=== PATIENT | male | born 1935 | race Caucasian/White ===

== ENCOUNTER 2016-07-26 | Outpatient (CLI) | payer MEDICARE, OTHER | END 2016-07-26 11:51 | disposition critical access hospital (66) | DX: J18.9 Pneumonia, unspecified organism (principal) | CPT/HCPCS: A0425; A0427 ==

== ENCOUNTER 2016-07-26 12:09 | Inpatient (IN) | payer MEDICARE, OTHER ==
[2016-07-26] MEDS ORDERED: cefTRIAXone 1 GM in SODIUM CHLORIDE 0.9% MINIBAG 100 ML IV STA (12:46)
[2016-07-26] MEDS ORDERED: AZITHROMYCIN INJ 500 MG in SODIUM CHLORIDE 0.9% 250 ML IV STA (12:46)
[2016-07-26] MEDS ORDERED: cefTRIAXone 1 GM VIAL ONE (13:21)
[2016-07-26] MEDS ORDERED: IPRATROPIUM/ALBUTEROL 3 ML NEB INH STA (13:46)
[2016-07-26] MEDS ORDERED: IPRATROPIUM/ALBUTEROL 3 ML NEB INH ONE (13:51)
[2016-07-26] MEDS ORDERED: SODIUM CHLORIDE 0.9% 1,000 ML IV SCH (15:57)
[2016-07-26] MEDS ORDERED: ONDANSETRON ODT 4 MG TABLET TL PRN (15:57)
[2016-07-26] MEDS ORDERED: ONDANSETRON 4 MG/2 ML VIAL IVP PRN (15:57)
[2016-07-26] MEDS ORDERED: SODIUM CHLORIDE FLUSH 0.9% 10 ML SYRINGE IVP PRN (15:57)
[2016-07-26] MEDS ORDERED: HYDROcod/ACETAM 5/325 MG TABLET PO PRN (15:57)
[2016-07-26] MEDS: PANTOPRAZOLE 40 MG TABLET PO SCH (16:47)
[2016-07-26] MEDS: IPRATROPIUM/ALBUTEROL 3 ML NEB INH SCH (20:05)
[2016-07-26] MEDS ORDERED: POTASSIUM CHLORIDE 20 MEQ TABLET PO SCH (20:06)
[2016-07-26] MEDS: ATORVASTATIN 10 MG TABLET PO SCH (20:43)
[2016-07-26] MEDS: DIGOXIN 125 MCG TABLET PO SCH (20:43)
[2016-07-26] MEDS: SODIUM CHLORIDE FLUSH 0.9% 10 ML SYRINGE IVP SCH (20:44)
[2016-07-26] MEDS ORDERED: TEMAZEPAM 15 MG CAPSULE PO PRN (21:19)
[2016-07-26] MEDS: guaiFENesin/CODEINE 5 ML UDC PO PRN (21:36)
[2016-07-26] MEDS ORDERED: OSELTAMIVIR 75 MG CAPSULE PO SCH (22:00)
[2016-07-26] MEDS ORDERED: OSELTAMIVIR 30 MG CAPSULE PO SCH ×2 (22:00)
[2016-07-26] MEDS: OSELTAMIVIR 75 MG CAPSULE PO SCH (22:09)
[2016-07-27] MEDS: ACETAMINOPHEN 325 MG TABLET PO PRN ×3 (00:34→16:23)
[2016-07-27] MEDS: BENZOCAINE/MENTHOL LOZENGE MM PRN ×4 (00:35→23:55)
[2016-07-27] MEDS: guaiFENesin/CODEINE 5 ML UDC PO PRN ×2 (03:08→23:55)
[2016-07-27] MEDS: ALBUTEROL NEB 2.5 MG/3 ML INH PRN (03:22)
[2016-07-27] MEDS: SODIUM CHLORIDE FLUSH 0.9% 10 ML SYRINGE IVP SCH ×3 (06:35→20:51)
[2016-07-27] MEDS ORDERED: ENOXAPARIN 40 MG/0.4 ML SYRINGE SUBQ SCH (09:00)
[2016-07-27] MEDS: IPRATROPIUM/ALBUTEROL 3 ML NEB INH SCH ×3 (09:10→16:00)
[2016-07-27] MEDS: AZITHROMYCIN INJ 500 MG in SODIUM CHLORIDE 0.9% 250 ML IV SCH (09:13)
[2016-07-27] MEDS: METOPROLOL SUCCINATE 25 MG TABLET PO SCH (09:14)
[2016-07-27] MEDS: OSELTAMIVIR 75 MG CAPSULE PO SCH ×2 (09:14→20:51)
[2016-07-27] MEDS: DIGOXIN 125 MCG TABLET PO SCH (09:14)
[2016-07-27] MEDS: POLYETHYLENE GLYCOL 3350 17 GM PACKET PO SCH (09:15)
[2016-07-27] MEDS ORDERED: cefTRIAXone 2 GM in SODIUM CHLORIDE 0.9% MINIBAG 100 ML IV SCH (10:00)
[2016-07-27] MEDS ORDERED: DIGOXIN 500 MCG/2 ML AMP IVP ONE (17:30)
[2016-07-27] MEDS: PANTOPRAZOLE 40 MG TABLET PO SCH (17:32)
[2016-07-27] MEDS ORDERED: METOPROLOL 5 MG/5 ML VIAL IVP ONE (19:00)
[2016-07-27] MEDS: ATORVASTATIN 10 MG TABLET PO SCH (20:51)
[2016-07-27] MEDS: APIXABAN 2.5 MG TABLET PO SCH (20:51)
[2016-07-28] MEDS ORDERED: METOPROLOL 5 MG/5 ML VIAL IVP STA ×2 (01:12→04:02)
[2016-07-28] MEDS ORDERED: METOPROLOL 5 MG/5 ML VIAL IVP ONE (01:13)
[2016-07-28] MEDS ORDERED: METOPROLOL 5 MG/5 ML VIAL IVP SCH (01:36)
[2016-07-28] MEDS ORDERED: ALPRAZolam 0.25 MG TABLET PO STA (04:02)
[2016-07-28] MEDS: SODIUM CHLORIDE FLUSH 0.9% 10 ML SYRINGE IVP SCH ×2 (04:13→13:07)
[2016-07-28] MEDS: ALBUTEROL NEB 2.5 MG/3 ML INH PRN ×3 (07:30→14:50)
[2016-07-28] MEDS: METOPROLOL SUCCINATE 25 MG TABLET PO SCH (08:37)
[2016-07-28] MEDS: AZITHROMYCIN INJ 500 MG in SODIUM CHLORIDE 0.9% 250 ML IV SCH (08:37)
[2016-07-28] MEDS: APIXABAN 2.5 MG TABLET PO SCH (08:37)
[2016-07-28] MEDS: OSELTAMIVIR 75 MG CAPSULE PO SCH (08:37)
[2016-07-28] MEDS: DIGOXIN 125 MCG TABLET PO SCH (08:37)
[2016-07-28] MEDS: POLYETHYLENE GLYCOL 3350 17 GM PACKET PO SCH (08:38)
[2016-07-28] MEDS ORDERED: AZITHROMYCIN 250 MG TABLET PO SCH (12:49)
[2016-07-28] MEDS ORDERED: AMOXICILLIN 250 MG CAPSULE PO SCH (13:00)
== END 2016-07-28 15:15 | disposition home or self-care (01) | DRG 195 ==
DX: J10.08 Influenza due to other identified influenza virus with other specified pneumonia (principal); J18.9 Pneumonia, unspecified organism; I48.91 Unspecified atrial fibrillation; J12.9 Viral pneumonia, unspecified; I25.10 Atherosclerotic heart disease of native coronary artery without angina pectoris; E78.5 Hyperlipidemia, unspecified; E29.1 Testicular hypofunction; G47.30 Sleep apnea, unspecified; Z88.2 Allergy status to sulfonamides; M19.90 Unspecified osteoarthritis, unspecified site; I34.0 Nonrheumatic mitral (valve) insufficiency; N40.0 Benign prostatic hyperplasia without lower urinary tract symptoms; K21.9 Gastro-esophageal reflux disease without esophagitis; H91.8X9 Other specified hearing loss, unspecified ear; E66.3 Overweight; R09.02 Hypoxemia; I48.2 Chronic atrial fibrillation; J44.1 Chronic obstructive pulmonary disease with (acute) exacerbation; J45.909 Unspecified asthma, uncomplicated; G47.33 Obstructive sleep apnea (adult) (pediatric); I10 Essential (primary) hypertension; Z79.01 Long term (current) use of anticoagulants; Z87.891 Personal history of nicotine dependence; Z95.5 Presence of coronary angioplasty implant and graft; Z96.643 Presence of artificial hip joint, bilateral; Z96.1 Presence of intraocular lens; Z98.1 Arthrodesis status; Z68.32 Body mass index [BMI] 32.0-32.9, adult; Z66 Do not resuscitate

== ENCOUNTER 2016-09-23 07:43 | Outpatient (CLI) | payer MEDICARE, OTHER | END 2016-09-23 07:44 | disposition home or self-care (01) | DX: R35.0 Frequency of micturition (principal) ==

== ENCOUNTER 2016-09-26 11:44 | Outpatient (CLI) | payer MEDICARE, OTHER | END 2016-09-26 11:45 | disposition short-term general hospital (02) | DX: I49.9 Cardiac arrhythmia, unspecified (principal) | CPT/HCPCS: A0425; A0427 ==

== ENCOUNTER 2016-10-10 11:04 | Outpatient (CLI) | payer MEDICARE, OTHER | END 2016-10-10 11:05 | disposition home or self-care (01) | DX: I50.9 Heart failure, unspecified (principal) ==

== ENCOUNTER 2016-12-26 09:30 | Outpatient (CLI) | payer MEDICARE, OTHER | END 2016-12-26 09:31 | disposition home or self-care (01) | LOC: LAB.WCP 09:30 | PROVIDERS: ATTEND Family Medicine | DX: B02.29 Other postherpetic nervous system involvement (principal); B02.9 Zoster without complications | CPT/HCPCS: 36415; 86787 ==

== ENCOUNTER 2016-12-30 10:42 | Outpatient (CLI) | payer MEDICARE, OTHER ==
--- NOTE | 2016-12-30 13:43 | MRI Report ---
EXAM: MRI LUMBAR SPINE WITHOUT CONTRAST EXAM DATE: 12/30/2016 11:51 AM. CLINICAL HISTORY: Low back pain for one month with left lower leg numbness. Left hip pain. History of prior fusion surgery 10 years ago. COMPARISON: None available. TECHNIQUE: Multiplanar, multisequence T1-weighted and fluid-sensitive sequences of the lumbar spine f rom T12 to S1 without contrast. Other: None. FINDINGS: There is straightening of the normal lumbar lordosis. There is a grade 1 anterolisthesis of L4 on L5. There are surgical changes of anterior fusion from L3 through L5. There are surgical changes of post erior fusion from L3 through L5. There are surgical changes of bilateral hemilaminotomies at L4-L5. T his will be described in greater detail below. There is hypertrophy of the fat in the posterior epidural space that is greatest at the L1-L2 and L2- L3 levels. This contributes to the degree of central canal stenosis and is consistent with focal area s of epidural lipomatosis. This will be described in greater detail below. There are Schmorl's nodes within the T11-T12 through L4-L5 endplates. There is a mild decrease in the height of the disk at T11-T12, T12-L1, L1-L2, and mild to moderate at L2-L3. There is desiccation of the disk spaces throughout the imaged portions of the thoracic and lumbar spine. The conus terminates at the superior endplate level of L1. There is a mixture of Modic type I and type II endplate degenerative change within the T11-T12 throug h L2-L3 endplates. There is a minimal to mild degree of atrophy of the paraspinal musculature and psoas musculature. The abdominal aorta is of normal caliber. There is no evidence of hydronephrosis. T12-L1: There is a small disk osteophyte complex abutting the sac producing a minimal central canal s tenosis. The facets are normal. There is no significant foraminal stenosis. L1-L2: There is a moderate broad-based disk osteophyte complex abutting the sac. There is mild hypert rophy of the fat in the posterior epidural space. There is a moderate central canal stenosis. There i s mild to moderate bilateral facet arthropathy with minimal bilateral facet effusions. There is mild to moderate bilateral foraminal stenoses. L2-L3: There is a small disk osteophyte complex abutting the sac. This in combination with epidural l ipomatosis produces mild to moderate central canal stenosis. There is moderate right and left neural foraminal narrowing. There is mild left facet arthropathy. L3-L4: There is no significant disk bulge or central canal stenosis. The facets are normal. There is no significant foraminal stenosis. L4-L5: There is a grade 1 anterolisthesis of L4 on L5. There is a small pseudobulge abutting the sac with annular tear but without significant central canal stenosis. There are surgical changes of poste rior decompression from bilateral hemilaminotomies. There is mild bilateral facet arthropathy. There is moderate right and mild to moderate left neural foraminal narrowing. L5-S1: There is mild left facet arthropathy. There is no significant foraminal stenosis. There is no significant central canal stenosis. IMPRESSION: 1. There are surgical changes of anterior and posterior fusion from L3 through L5. There are surgical changes of the bilateral hemilaminotomies at L4-L5. 2. There is a grade 1 anterolisthesis of L4 on L5. There is a small pseudobulge with annular tear but without significant central canal stenosis at L4-L5. 3. There is a small disk osteophyte complex at L2-L3 which in combination with epidural lipomatosis p roduces a mild to moderate central canal stenosis. 4. There is a moderate broad-based disk osteophyte complex at L1-L2 which in correlation with epidura l lipomatosis produces a moderate central canal stenosis. Comment: The following findings are so common in adults without low back pain that while we report th eir presence, they must be interpreted with caution and in the context of the clinical situation. (Re sharmaine Marquez et al, Spine 2001) Prevalence of findings in patients without low back pain: Disk degeneration (any evidence): 92% Disk desiccation/T2 signal loss: 83% Disk height loss: 56% Disk bulge: 64% Disk protrusion: 32% Annular tear/high intensity zone: 38% [facility] Referring Provider Line: [phone] SITE ID: [id number]
== END 2016-12-30 10:43 | disposition home or self-care (01) ==
LOC: DI 10:42
PROVIDERS: ATTEND Family Medicine
DX: M51.36 Other intervertebral disc degeneration, lumbar region (principal); M47.896 Other spondylosis, lumbar region; M43.16 Spondylolisthesis, lumbar region; M51.34 Other intervertebral disc degeneration, thoracic region; M47.897 Other spondylosis, lumbosacral region; Z98.1 Arthrodesis status
CPT/HCPCS: 72148

== ENCOUNTER 2017-02-14 11:04 | Outpatient (CLI) | payer MEDICARE, OTHER ==
[2017-02-14 13:15] LABS: BASOPHILS # (AUTO) 0.1 10^3/uL (0.0-0.1); BASOPHILS % (AUTO) 0.6 %; EOSINOPHILS # (AUTO) 0.4 10^3/uL (0.0-0.7); EOSINOPHILS % (AUTO) 4.9 %; HCT - HEMATOCRIT 40.9 % (42.0-52.0); HGB - HEMOGLOBIN 13.5 g/dL (14.0-18.0); LYMPHOCYTES % (AUTO) 12.3 %; MEAN CORPUSCULAR HEMOGLOBIN 29.2 pg (27.0-31.0); MEAN CORPUSCULAR HGB CONC 32.9 g/dL (32.0-36.0); MEAN CORPUSCULAR VOLUME 88.6 fL (80.0-94.0); MEAN PLATELET VOLUME 8.9 fL (7.4-11.4); MONOCYTES # (AUTO) 0.9 10^3/uL (0.0-1.0); MONOCYTES % (AUTO) 11.1 %; NEUTROPHILS # (AUTO) 5.7 10^3/uL (1.5-6.6); NEUTROPHILS % (AUTO) 71.1 %; RED BLOOD COUNT 4.62 10^6/uL (4.70-6.10); RED CELL DISTRIBUTION WIDTH 15.8 % (12.0-15.0)
[2017-02-14 13:35] LABS: CALCIUM 9.2 mg/dL (8.5-10.3); CREATININE 1.3 mg/dL (0.6-1.2); MAGNESIUM 2.2 mg/dL (1.7-2.8); POTASSIUM 4.1 mmol/L (3.5-5.0)
== END 2017-02-14 11:05 | disposition home or self-care (01) ==
LOC: LAB.WCP 11:04
PROVIDERS: ATTEND Nurse Practitioner Family
DX: I48.91 Unspecified atrial fibrillation (principal); Z51.81 Encounter for therapeutic drug level monitoring; Z79.899 Other long term (current) drug therapy
CPT/HCPCS: 36415; 80048; 83735; 85025

== ENCOUNTER 2017-04-14 14:57 | Outpatient (CLI) | payer MEDICARE, OTHER ==
[2017-04-14 13:39] LABS: CALCIUM 9.6 mg/dL (8.5-10.3); CREATININE 1.2 mg/dL (0.6-1.2); POTASSIUM 3.9 mmol/L (3.5-5.0)
== END 2017-04-14 14:58 | disposition home or self-care (01) ==
LOC: LAB.WCP 14:57
PROVIDERS: ATTEND Nurse Practitioner Family
DX: Z51.81 Encounter for therapeutic drug level monitoring (principal); Z79.899 Other long term (current) drug therapy
CPT/HCPCS: 36415; 80048

== ENCOUNTER 2017-06-29 13:01 | Outpatient (CLI) | payer MEDICARE, OTHER | END 2017-06-29 13:02 | disposition home or self-care (01) | LOC: SC 13:01 | PROVIDERS: ATTEND Specialist | DX: G47.33 Obstructive sleep apnea (adult) (pediatric) (principal) | CPT/HCPCS: 99214; G0463; 99212 ==

== ENCOUNTER 2017-07-21 08:00 | Outpatient (CLI) | payer MEDICARE, OTHER ==
[2017-07-21 19:41] LABS: CALCIUM 10.2 mg/dL (8.5-10.3); CREATININE 1.7 mg/dL (0.6-1.2)
== END 2017-07-21 08:01 | disposition home or self-care (01) ==
LOC: LAB.WCP 08:00
PROVIDERS: ATTEND Nurse Practitioner Family
DX: I48.91 Unspecified atrial fibrillation (principal); I25.10 Atherosclerotic heart disease of native coronary artery without angina pectoris; Z51.81 Encounter for therapeutic drug level monitoring; Z79.899 Other long term (current) drug therapy
CPT/HCPCS: 36415; 80048

== ENCOUNTER 2017-07-31 12:09 | Outpatient (CLI) | payer MEDICARE, OTHER ==
[2017-07-31 19:19] LABS: CALCIUM 9.5 mg/dL (8.5-10.3); CREATININE 1.4 mg/dL (0.6-1.2)
== END 2017-07-31 12:10 | disposition home or self-care (01) ==
LOC: LAB.WCP 12:09
PROVIDERS: ATTEND Internal Medicine Cardiovascular Disease
DX: I48.91 Unspecified atrial fibrillation (principal); Z51.81 Encounter for therapeutic drug level monitoring; Z79.899 Other long term (current) drug therapy
CPT/HCPCS: 36415; 80048

== ENCOUNTER 2017-09-29 08:00 | Outpatient (CLI) | payer MEDICARE, OTHER ==
[2017-09-29 14:19] LABS: CALCIUM 9.3 mg/dL (8.5-10.3); CREATININE 1.7 mg/dL (0.6-1.2)
== END 2017-09-29 08:01 | disposition home or self-care (01) ==
LOC: LAB.WCP 08:00
PROVIDERS: ATTEND Internal Medicine Cardiovascular Disease
DX: Z51.81 Encounter for therapeutic drug level monitoring (principal); Z79.899 Other long term (current) drug therapy
CPT/HCPCS: 36415; 80048

== ENCOUNTER 2018-02-05 08:00 | Outpatient (CLI) | payer MEDICARE, OTHER ==
[2018-02-05 18:58] LABS: CALCIUM 9.1 mg/dL (8.5-10.3); CREATININE 1.9 mg/dL (0.6-1.2)
== END 2018-02-05 08:01 | disposition home or self-care (01) ==
LOC: LAB.WCP 08:00
PROVIDERS: ATTEND Internal Medicine Cardiovascular Disease
DX: I48.0 Paroxysmal atrial fibrillation (principal); I48.3 Typical atrial flutter
CPT/HCPCS: 36415; 80048

== ENCOUNTER 2018-02-23 13:00 | Outpatient (CLI) | payer MEDICARE, OTHER ==
[2018-02-23 18:51] LABS: CALCIUM 9.5 mg/dL (8.5-10.3); CREATININE 1.9 mg/dL (0.6-1.2)
== END 2018-02-23 13:01 | disposition home or self-care (01) ==
LOC: LAB.WCP 13:00
PROVIDERS: ATTEND Internal Medicine Cardiovascular Disease
DX: I48.0 Paroxysmal atrial fibrillation (principal); I48.3 Typical atrial flutter
CPT/HCPCS: 36415; 80048

== ENCOUNTER 2018-06-13 14:41 | Outpatient (CLI) | payer MEDICARE, OTHER | END 2018-06-13 14:42 | disposition home or self-care (01) | LOC: SC 14:41 | PROVIDERS: ATTEND Nurse Practitioner Family | DX: G47.33 Obstructive sleep apnea (adult) (pediatric) (principal) | CPT/HCPCS: 99214; G0463; 99212 ==

== ENCOUNTER 2018-09-19 08:00 | Outpatient (CLI) | payer MEDICARE, OTHER ==
[2018-09-19 12:24] LABS: HGB - HEMOGLOBIN 12.5 g/dL (14.0-18.0); MEAN CORPUSCULAR HEMOGLOBIN 29.2 pg (27.0-31.0); MEAN CORPUSCULAR HGB CONC 32.2 g/dL (32.0-36.0); MEAN CORPUSCULAR VOLUME 90.6 fL (80.0-94.0); MEAN PLATELET VOLUME 8.9 fL (7.4-11.4); RED BLOOD COUNT 4.27 10^6/uL (4.70-6.10); WHITE BLOOD COUNT 8.8 x10^3/uL (4.8-10.8)
[2018-09-19 13:40] LABS: CREATININE 1.3 mg/dL (0.6-1.2)
== END 2018-09-19 23:59 ==
LOC: LAB.WCP 08:00
PROVIDERS: ATTEND Family Medicine
DX: R06.09 Other forms of dyspnea (principal)
CPT/HCPCS: 36415; 80048; 83880; 85027

== ENCOUNTER 2018-09-26 14:19 | Outpatient (CLI) | payer MEDICARE, OTHER | END 2018-09-26 14:20 | disposition EMS.NT | LOC: EMS 14:19 | PROVIDERS: ATTEND Surgery | DX: M79.89 Other specified soft tissue disorders (principal); M79.672 Pain in left foot; M79.671 Pain in right foot; R26.2 Difficulty in walking, not elsewhere classified; R06.02 Shortness of breath ==

== ENCOUNTER 2018-09-26 15:27 | Inpatient (IN) | payer MEDICARE, OTHER ==
--- NOTE | 2018-09-26 16:22 | ED Physician Documentation ---
History of Present Illness - Stated complaint Stated Complaint: BILAT FEET & ANKLE SWELLING AND PX - Chief complaint Chief Complaint: Ext Problem - History obtained from History obtained from: Patient, Family - History of Present Illness Timing: How many days ago (worse for the past 3 days) Pain level max: 8 Pain level now: 8 - Additonal information Additional information: 83 year old male with a history of CHF, presents with increased trouble breathing, swelling in the legs and feet and increased foot pain for the past 3 days. States hurts to walk. Saw PCP and increased lasix and placed in compression socks. States he is worse. Review of Systems Ten Systems: 10 systems reviewed and negative Constitutional: denies: Fever, Chills Ears: denies: Ear pain Nose: denies: Rhinorrhea / runny nose, Congestion Cardiac: denies: Chest pain / pressure Respiratory: reports: Dyspnea, Cough. denies: Hemoptysis, Wheezing GI: denies: Abdominal Pain, Nausea, Vomiting, Diarrhea : denies: Dysuria Skin: denies: Rash Musculoskeletal: denies: Neck pain, Back pain Neurologic: denies: Headache PD PAST MEDICAL HISTORY - Past Medical History Cardiovascular: Hypertension, Atrial fibrillation Respiratory: Asthma Endocrine/Autoimmune: None GI: GERD, Hemorrhoids, Diverticulitis : Kidney stones HEENT: None Psych: None Musculoskeletal: Osteoarthritis, Chronic back pain Derm: None - Past Surgical History Past Surgical History: Yes General: Colonoscopy, EGD Ortho: Hip replacement, Spine surgery Cardiovascular: Coronary stent, Other HEENT: Cataracts, Tonsil/Adenoidectomy - Present Medications Home Medications: Ambulatory Orders Medication Instructions Recorded Confirmed Albuterol Sulfate [Proair 2 puffs INH Q4H PRN 04/23/16 07/26/16 Respiclick] Apixaban [Eliquis] 2.5 mg PO BID 04/23/16 07/26/16 Esomeprazole Magnesium [Nexium] 20 mg PO QDDINNER 04/23/16 09/26/18 Simvastatin 20 mg PO QPM 04/23/16 09/26/18 Fluticasone 110 Mcg [Flovent] 1 puffs INH BID 07/26/16 09/26/18 Fluticasone [Flonase] 1 sprays KRISHNA BID PRN 07/26/16 09/26/18 Metoprolol Succinate 50 mg PO DAILY 07/26/16 09/26/18 Albuterol 2.5 mg INH Q4HR PRN #120 neb 07/28/16 guaiFENesin/CODEINE [Robitussin AC] 5 ml PO Q6HR PRN #120 udc 07/28/16 09/26/18 Dofetilide [Tikosyn] 1 tab ORAL BID 09/26/18 09/26/18 Furosemide [Lasix] 80 mg pe ORAL DAILY 09/26/18 09/26/18 Lisinopril 20 mg ORAL DAILY 09/26/18 09/26/18 - Allergies Allergies/Adverse Reactions: Allergies Allergy/AdvReac Type Severity Reaction Status Date / Time diltiazem HCl * Allergy Unknown Verified 09/26/18 15:47 [From Cardizem] Sulfa (Sulfonamide Allergy Anaphylaxis Verified 09/26/18 15:47 Antibiotics) - Social History Does the pt smoke?: No Smoking Status: Never smoker Does the pt drink ETOH?: No - Immunizations Immunizations are current?: Yes PD ED PE NORMAL - Vitals Vital signs reviewed: Yes - General General: Alert and oriented X 3, No acute distress, Well developed/nourished - HEENT HEENT: PERRL, Moist mucous membranes - Neck Neck: Supple, no meningeal sign, Thyroid normal - Cardiac Cardiac: RRR - Respiratory Respiratory: No respiratory distress, Other (Rhonchi bilaterally) - Abdomen Abdomen: Soft, Non tender, Non distended - Derm Derm: Warm and dry - Extremities Extremities: Other (2+ pitting edema to the knee bilaterally. Right greater than left. There is redness and swelling to the right foot as well.) - Neuro Neuro: Alert and oriented X 3 - Psych Psych: Normal mood, Normal affect Results - Vitals Vitals: Vital Signs - 24 hr 09/26/18 15:42 Temperature 37 C Heart Rate 74 Respiratory 16 Rate Blood Pressure 118/62 O2 Saturation 99 Oxygen O2 Source Room air - EKG (time done) 1639 Rate: Rate (enter#) (81) Rhythm: NSR [place]: Normal Intervals: Normal MT QRS: Normal Ischemia: Non specific changes - Labs Labs: Laboratory Tests 09/26/18 09/26/18 09/26/18 16:30 16:30 16:30 WBC 11.5 H RBC 4.13 L Hgb 12.0 L Hct 37.0 L MCV 89.4 MCH 29.0 MCHC 32.4 RDW 15.1 H Plt Count 276 MPV 8.3 Neut # (Auto) 9.3 H Lymph # (Auto) 0.8 L [place] # (Auto) 1.2 H Eos # (Auto) 0.0 Baso # (Auto) 0.1 Absolute Nucleated RBC 0.01 Nucleated RBC % 0.1 ESR Sodium 139 Potassium 3.1 L Chloride 97 L Carbon Dioxide 31 Anion Gap 11.0 BUN 21 H Creatinine 1.3 H Estimated GFR (MDRD) 53 L Glucose 123 H Calcium 8.9 Total Bilirubin 1.2 H AST 18 ALT 17 Alkaline Phosphatase 67 Troponin I < 0.04 C-Reactive Protein B-Natriuretic Peptide Total Protein 7.3 Albumin 3.8 Globulin 3.5 Albumin/Globulin Ratio 1.1 Lipase 25 Urine Color Urine Clarity Urine pH Ur Specific [place] Urine Protein Urine Glucose (UA) Urine Ketones Urine Occult Blood Urine Nitrite Urine Bilirubin Urine Urobilinogen Ur Leukocyte Esterase Urine RBC Urine WBC Ur Squamous Epith Cells Urine Bacteria Ur Microscopic Review Urine Culture Comments 09/26/18 09/26/18 09/26/18 16:30 16:30 16:30 WBC RBC Hgb Hct MCV MCH MCHC RDW Plt Count MPV Neut # (Auto) Lymph # (Auto) [place] # (Auto) Eos # (Auto) Baso # (Auto) Absolute Nucleated RBC Nucleated RBC % ESR 58 H Sodium Potassium Chloride Carbon Dioxide Anion Gap BUN Creatinine Estimated GFR (MDRD) Glucose Calcium Total Bilirubin AST ALT Alkaline Phosphatase Troponin I C-Reactive Protein 20.9 H B-Natriuretic Peptide 312 H Total Protein Albumin Globulin Albumin/Globulin Ratio Lipase Urine Color Urine Clarity Urine pH Ur Specific [place] Urine Protein Urine Glucose (UA) Urine Ketones Urine Occult Blood Urine Nitrite Urine Bilirubin Urine Urobilinogen Ur Leukocyte Esterase Urine RBC Urine WBC Ur Squamous Epith Cells Urine Bacteria Ur Microscopic Review Urine Culture Comments 09/26/18 17:18 WBC RBC Hgb Hct MCV MCH MCHC RDW Plt Count MPV Neut # (Auto) Lymph # (Auto) [place] # (Auto) Eos # (Auto) Baso # (Auto) Absolute Nucleated RBC Nucleated RBC % ESR Sodium Potassium Chloride Carbon Dioxide Anion Gap BUN Creatinine Estimated GFR (MDRD) Glucose Calcium Total Bilirubin AST ALT Alkaline Phosphatase Troponin I C-Reactive Protein B-Natriuretic Peptide Total Protein Albumin Globulin Albumin/Globulin Ratio Lipase Urine Color YELLOW Urine Clarity CLEAR Urine pH 5.5 Ur Specific [place] 1.020 Urine Protein TRACE Urine Glucose (UA) NEGATIVE Urine Ketones NEGATIVE Urine Occult Blood MODERATE H Urine Nitrite NEGATIVE Urine Bilirubin NEGATIVE Urine Urobilinogen 0.2 (NORMAL) Ur Leukocyte Esterase NEGATIVE Urine RBC 0-5 Urine WBC 0-3 Ur Squamous Epith Cells RARE Squamous Urine Bacteria None Seen Ur Microscopic Review INDICATED Urine Culture Comments NOT INDICATED - Rads (name of study) cxr Radiology: Prelim report reviewed, EMP read contemporaneously PD MEDICAL DECISION MAKING - ED course Complexity details: reviewed results, re-evaluated patient, considered differential, d/w patient, d/w family, d/w data quality consultant ED course: 83-year-old male presents to the emergency department with a CHF exacerbation. Increasing bilateral lower extremity edema. Right foot cellulitis. Leukocytosis, CRP elevation and sed rate elevation. Started on IV antibiotics and IV Lasix. Will place in observation to ensure that he is improving adequately as he is not currently improving on the increased doses of Lasix at home. Discussed the case with Dr. Stuart, hospitalist who accepts This document was made in part using voice recognition software. While efforts are made to proofread this document, sound alike and grammatical errors may occur. Departure - Departure Disposition: ED Place in Observation Clinical Impression: Cellulitis Qualifiers: Site of cellulitis: extremity Site of cellulitis of extremity: lower extremity Laterality: right Qualified Code(s): L03.115 - Cellulitis of right lower limb Acute exacerbation of CHF (congestive heart failure) Qualifiers: Heart failure type: unspecified Qualified Code(s): I50.9 - Heart failure, unspecified Condition: Stable Discharge Date/Time: 09/26/18 19:47
[2018-09-26 16:39] LABS: BASOPHILS # (AUTO) 0.1 10^3/uL (0.0-0.1); BASOPHILS % (AUTO) 0.9 %; EOSINOPHILS % (AUTO) 0.1 %; LYMPHOCYTES # (AUTO) 0.8 10^3/uL (1.5-3.5); LYMPHOCYTES % (AUTO) 6.8 %; MEAN CORPUSCULAR HGB CONC 32.4 g/dL (32.0-36.0); MEAN CORPUSCULAR VOLUME 89.4 fL (80.0-94.0); MEAN PLATELET VOLUME 8.3 fL (7.4-11.4); MONOCYTES # (AUTO) 1.2 10^3/uL (0.0-1.0); MONOCYTES % (AUTO) 10.8 %; NEUTROPHILS # (AUTO) 9.3 10^3/uL (1.5-6.6); NEUTROPHILS % (AUTO) 81.4 %; PLT - PLATELET COUNT 276 10^3/uL (130-450); RED BLOOD COUNT 4.13 10^6/uL (4.70-6.10); RED CELL DISTRIBUTION WIDTH 15.1 % (12.0-15.0); WHITE BLOOD COUNT 11.5 x10^3/uL (4.8-10.8)
[2018-09-26 16:54] LABS: ALBUMIN 3.8 g/dL (3.2-5.5); ALBUMIN/GLOBULIN RATIO 1.1 (1.0-2.2); BILIRUBIN,TOTAL 1.2 mg/dL (0.2-1.0); CALCIUM 8.9 mg/dL (8.5-10.3); CREATININE 1.3 mg/dL (0.6-1.2); TOTAL PROTEIN 7.3 g/dL (6.7-8.2)
--- NOTE | 2018-09-26 17:25 | XRAY Report ---
Reason: dyspnea, cough Procedure Date: 09/26/2018 Accession Number: [id number] / [id number] Procedure: XR - Chest 1 View X-Ray CPT Code: 76949 FULL RESULT: EXAM: CHEST RADIOGRAPHY EXAM DATE: 09/26/2018 04:54 PM. CLINICAL HISTORY: Dyspnea, cough. COMPARISON: CHEST 2 VIEW PA/LAT 10/30/2017 11:43 AM. TECHNIQUE: 1 view. FINDINGS: Lungs/Pleura: Mild diffuse interstitial prominence. No definite acute infiltrate, consolidation, effusion, or pneumothorax. Mediastinum: Within exam limitations, the cardiomediastinal contour is normal. Upper lobe vessels not distended. Other: Permanent pacemaker on the left with intact leads. Degenerative changes. IMPRESSION: Chronic findings. No acute disease. [facility]
[2018-09-26] MEDS ORDERED: AMPICILLIN/SULBACTAM 3 GM in SODIUM CHLORIDE 0.9% MINIBAG 100 ML IV STA (17:28)
[2018-09-26] MEDS ORDERED: VANCOMYCIN INJ 1 GM in SODIUM CHLORIDE 0.9% 500 ML IV STA (17:28)
[2018-09-26] MEDS ORDERED: FUROSEMIDE 40 MG/4 ML VIAL IVP STA (17:30)
[2018-09-26] MEDS ORDERED: MORPHINE 2 MG/ML CARPUJECT IVP STA (17:30)
[2018-09-26] MEDS ORDERED: ACETAMINOPHEN 325 MG TABLET PO PRN (17:44)
[2018-09-26 17:56] LABS: BILIRUBIN,URINE NEGATIVE (NEGATIVE); GLUCOSE, URINE (UA) NEGATIVE (NEGATIVE); KETONES,URINE (UA) NEGATIVE (NEGATIVE); LEUKOCYTE ESTERASE, URINE NEGATIVE (NEGATIVE); NITRITE,URINE NEGATIVE (NEGATIVE); OCCULT BLOOD,URINE MODERATE (NEGATIVE); PH,URINE 5.5 PH (5.0-7.5); PROTEIN,URINE TRACE mg/dL (NEGATIVE); UROBILINOGEN,URINE 0.2 (NORMAL) E.U./dL (NORMAL)
[2018-09-26] MEDS ORDERED: ALBUTEROL SULFATE INH PRN (17:59)
[2018-09-26 18:19] LABS: CLARITY,URINE CLEAR (CLEAR)
[2018-09-26 18:20] LABS: BACTERIA,URINE None Seen /HPF (None Seen); RBC,URINE 0-5 /HPF (0-5); SQUAMOUS EPITHELIAL CELL,UR RARE Squamous (<= Few)
[2018-09-26] MEDS ORDERED: VANCOMYCIN PER PHARMACY 100 GM in SODIUM CHLORIDE 0.9% 250 ML IV SCH (19:00)
[2018-09-26] MEDS ORDERED: KETOROLAC 15 MG/ML VIAL IVP SCH (19:38)
[2018-09-26] MEDS ORDERED: VANCOMYCIN INJ 1 GM in SODIUM CHLORIDE 0.9% 250 ML IV SCH (20:00)
--- NOTE | 2018-09-26 20:17 | HISTORY & PHYSICAL EXAMINATION ---
DATE OF SERVICE: 09/19/2018 Physician: Brittany Stuart MD HISTORY OF PRESENT ILLNESS: This is an 83-year-old white male with a history of hypertension, coronary artery disease with stenting, prior atrial fibrillation currently on Tikosyn and Eliquis, history of sleep apnea using a CPAP machine, asthma/COPD, has a pacemaker, history of GERD, DJD, and was admitted here 1 year ago for flu and pneumonia. The patient states that, about 3 days ago, he started to get worsening shortness of breath and leg edema, went to see his PCP, who increased his dose of diuretics and also gave him compression stockings. This did not help his symptoms. His shortness of breath got worse, and he got orthopnea, a wet cough and the leg edema did decrease in the left, but the right got worse and red. The left foot became painful to walk on. Because of this, he presented to the emergency room. The ER evaluation shows that he has elevation of BNP higher than his baseline, interstitial edema seen on chest x- ray and probable cellulitis of the right lower extremity. PAST MEDICAL HISTORY: CAD with stents, prior atrial fibrillation on Tikosyn and Eliquis, asthma/COPD, pacemaker, hypertension, DJD, GERD and history of CHF, unknown if it is systolic or diastolic. (His last Echo done here was in 2013, which showed a normal LVEF). ALLERGIES 1. SULFA. 2. CARDIZEM. MEDICATIONS 1. Dofetilide 125 mg b.i.d. 2. Lasix 80 mg daily. 3. Albuterol inhaler. 4. ProAir inhaler. 5. Eliquis 2.5 b.i.d. 6. Nexium nightly with dinner. 7. Flonase spray and Flovent inhaler. 8. Robitussin-AC p.r.n. 9. Lisinopril 20 mg daily. 10. Toprol-XL 50 mg daily. 11. Simvastatin 20 mg at bedtime. 12. It is not clear if he is not on aspirin or Plavix given his remote coronary stenting. REVIEW OF SYSTEMS: Today he has chills and feels flushed, but he measured his temperature and it was normal. He denies ever having gout. A comprehensive review of system was performed, and the pertinent positives are all listed, the rest are negative. FAMILY HISTORY: No inherited diseases. SOCIAL HISTORY: He was never a smoker, drinks no alcohol, no illicit drug use. PHYSICAL EXAMINATION GENERAL: Obese, elderly white male. He is in no distress unless he starts coughing, which is long. VITAL SIGNS: Blood pressure 118/62, pulse of 74 in sinus rhythm, afebrile, room air saturation 99%. HEENT: Unremarkable. NECK: Without JVD in a vertical position. LUNGS: Clear. CARDIAC: Heart sounds are distant. ABDOMEN: Obese. I cannot rule out organomegaly or ascites. EXTREMITIES: Legs have 2+ edema to the knees. The right oh is red and warm and larger than the left. The left toes are slightly red. NEUROLOGIC: Grossly intact. LABORATORY DATA: White count 11.5 with a left shift, hemoglobin 12, platelet count normal at 276. Sodium 139, potassium 3.1, BUN 21, creatinine 1.3 (his baseline creatinine runs between 1.3 and 1.9). ALT and AST are normal. Sed rate is up at 58. Lipase is normal. Urinalysis is pending. Lactic acid is pending. BNP 312. First Troponin not detectable. CHEST X-RAY: Interstitial edema which is chronic, and a pacemaker wire is seen. EKG: Normal sinus rhythm, short FL interval, diffusely flat T waves. ASSESSMENT AND PLAN 1. Congestive heart failure exacerbation, with edema on CXR and elevated BNP.. 2. Cellulitis of the right leg, consider gouty attack of the left foot. 3. Hypokalemia. 4. History of atrial fibrillation but currently in sinus rhythm on Tikosyn and on Eliquis. 5. Chronic kidney disease. 6. Sleep apnea on CPAP. 7. History of coronary artery disease with stent. 8. Asthma/chronic obstructive pulmonary disease history. 9. History of pacemaker. 10. History of hypertension. PLAN 1. Place the patient in Observation status, on telemetry. 2. Continue with Eliquis, Tikosyn, statin medication, Toprol, and lisinopril. 3. Begin IV diuretic b.i.d. Follow I's and O's, daily weight, magnesium, BUN and creatinine and electrolytes daily. 4. Start a low-salt diet, as well as cardiac diet. 5. He may use his home CPAP. 6. Obtain blood cultures and start empiric antibiotics for skin organisms, using IV vancomycin and IV Unasyn, to treat cellulitis. Obtain a uric acid level. 7. Obtain an Echo and check troponins x3, follow BNP for improvement. 8. If there is improvement in his respiratory status and inflammation of his cellulitis, he will be discharged with adjustment of his diuretics, p.o. antibiotics started, with followup back to his PCP after discharge. If there is worsening, he will be transitioned to Inpatient status. CODE STATUS: FULL CODE. DVT PROPHYLAXIS: Pharmacotherapy (he is on therapeutic Eliquis doses). ATTESTATION: The patient is expected to be discharged or transferred to another facility within 96 hours: Yes. TD: 09/26/2018 18:38 ERNST
[2018-09-26] MEDS ORDERED: NON FORMULARY MED (Simvastatin [Simvastatin] 20 MG) PO SCH (21:00)
[2018-09-26] MEDS: APIXABAN 2.5 MG TABLET PO SCH (21:01)
[2018-09-26] MEDS: guaiFENesin 600 MG TABLET PO SCH (21:01)
[2018-09-26] MEDS: ATORVASTATIN 10 MG TABLET PO SCH (21:01)
[2018-09-26] MEDS: FAMOTIDINE 20 MG TABLET PO SCH (21:03)
[2018-09-26] MEDS: SODIUM CHLORIDE FLUSH 0.9% 10 ML SYRINGE IVP SCH (21:04)
[2018-09-26] MEDS: METOPROLOL SUCCINATE 50 MG TABLET PO SCH (23:04)
[2018-09-27] MEDS: SODIUM CHLORIDE FLUSH 0.9% 10 ML SYRINGE IVP PRN (00:11)
[2018-09-27] MEDS: AMPICILLIN/SULBACTAM 3 GM in SODIUM CHLORIDE 0.9% MINIBAG 100 ML IV SCH ×4 (00:11→17:29)
[2018-09-27] MEDS: MORPHINE 2 MG/ML CARPUJECT IVP PRN ×3 (00:22→18:08)
[2018-09-27] MEDS: IPRATROPIUM/ALBUTEROL 3 ML NEB INH PRN ×2 (05:45→17:29)
[2018-09-27 05:56] LABS: BASOPHILS # (AUTO) 0.1 10^3/uL (0.0-0.1); BASOPHILS % (AUTO) 0.7 %; EOSINOPHILS % (AUTO) 0.3 %; HGB - HEMOGLOBIN 11.5 g/dL (14.0-18.0); LYMPHOCYTES # (AUTO) 0.6 10^3/uL (1.5-3.5); LYMPHOCYTES % (AUTO) 5.3 %; MEAN CORPUSCULAR HEMOGLOBIN 28.8 pg (27.0-31.0); MEAN CORPUSCULAR HGB CONC 32.2 g/dL (32.0-36.0); MEAN CORPUSCULAR VOLUME 89.5 fL (80.0-94.0); MEAN PLATELET VOLUME 8.4 fL (7.4-11.4); MONOCYTES # (AUTO) 1.3 10^3/uL (0.0-1.0); MONOCYTES % (AUTO) 11.4 %; NEUTROPHILS # (AUTO) 9.3 10^3/uL (1.5-6.6); NEUTROPHILS % (AUTO) 82.3 %; PLT - PLATELET COUNT 243 10^3/uL (130-450); RED BLOOD COUNT 3.99 10^6/uL (4.70-6.10); RED CELL DISTRIBUTION WIDTH 15.1 % (12.0-15.0); WHITE BLOOD COUNT 11.3 x10^3/uL (4.8-10.8)
[2018-09-27] MEDS ORDERED: FUROSEMIDE 20 MG/2 ML VIAL IVP SCH (06:00)
[2018-09-27] MEDS ORDERED: VANCOMYCIN INJ 1 GM in SODIUM CHLORIDE 0.9% 250 ML IV SCH (06:00)
[2018-09-27 06:32] LABS: ALBUMIN 3.3 g/dL (3.2-5.5); ALBUMIN/GLOBULIN RATIO 0.9 (1.0-2.2); BILIRUBIN,TOTAL 1.1 mg/dL (0.2-1.0); CALCIUM 8.2 mg/dL (8.5-10.3); CREATININE 1.5 mg/dL (0.6-1.2); TOTAL PROTEIN 6.8 g/dL (6.7-8.2)
--- NOTE | 2018-09-27 06:51 | XRAY Report ---
Reason: F/U cough and SOB Procedure Date: 09/27/2018 Accession Number: [id number] / [id number] Procedure: XR - Chest 1 View X-Ray CPT Code: 32506 FULL RESULT: EXAM: CHEST RADIOGRAPHY EXAM DATE: 09/27/2018 06:43 AM. CLINICAL HISTORY: F/U cough and SOB. COMPARISON: CHEST 1 VIEW 09/26/2018 4:36 PM. TECHNIQUE: 1 view. FINDINGS: Lungs/Pleura: Linear opacities at the bases, likely representing atelectasis. Stable mild interstitial prominence. No effusion or pneumothorax. Mediastinum: Within exam limitations, the cardiomediastinal contour is normal. Other: Stable left subclavian pacemaker. IMPRESSION: Bibasilar atelectasis. [facility]
[2018-09-27] MEDS ORDERED: METOPROLOL SUCCINATE 50 MG TABLET PO SCH (09:00)
[2018-09-27] MEDS ORDERED: SPIRONOLACTONE 25 MG TABLET PO SCH (09:00)
[2018-09-27] MEDS ORDERED: LISINOPRIL 20 MG TABLET PO SCH (09:00)
[2018-09-27] MEDS: APIXABAN 2.5 MG TABLET PO SCH ×2 (10:40→20:22)
[2018-09-27] MEDS: guaiFENesin 600 MG TABLET PO SCH ×2 (10:41→20:22)
[2018-09-27] MEDS: FAMOTIDINE 20 MG TABLET PO SCH (10:41)
[2018-09-27] MEDS: METOPROLOL SUCCINATE 50 MG TABLET PO SCH (10:41)
[2018-09-27] MEDS: COLCHICINE 0.6 MG TABLET PO SCH (10:42)
[2018-09-27] MEDS: POLYETHYLENE GLYCOL 3350 17 GM PACKET PO SCH (10:43)
[2018-09-27] MEDS: SODIUM CHLORIDE FLUSH 0.9% 10 ML SYRINGE IVP SCH ×2 (10:45→17:32)
--- NOTE | 2018-09-27 10:47 | PROVIDER PROGRESS NOTE ---
Assessment/Plan - Problem List (1) Cellulitis Qualifiers: Site of cellulitis: extremity Site of cellulitis of extremity: lower extremity Laterality: right Qualified Code(s): L03.115 - Cellulitis of right lower limb Assessment/Plan: The redness and warmth have resolved. He got one dose of iv NSAID (Toradol), which may have helped the inflammation and pain. Continue empiric iv antibiotics. Await blood cultures. (2) Gout attack Qualifiers: Gout site: foot Laterality: left Assessment/Plan: The serum uric acid level is >10 (normal up to 7). He got one dose of iv NSAID (Toradol). 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 Will start Colchicine and then add Allopurinol tomorrow. Will also order arterial Doppler of L leg, to R/O ischemic foot. (3) Acute kidney injury superimposed on chronic kidney disease Assessment/Plan: Creat increased from 1.3 to 1.5 yesterday. The Toradol NSAID x1 and iv diuretics may have worsened his creat on top of b eing on an HOLA. Will stop iv Lasix and start po milder diuretic for several days for leg swelling. Will stop Lisinopril. Follow BUN/creat, I's and O's. If creat worsens tomorrow, will plan renal ultrasound to evaluate for JOAN. He will be transferred to full Inpatient status, since his fluid balance will affect renal function and pulmonary congestion. (4) Acute exacerbation of CHF (congestive heart failure) Qualifiers: Heart failure type: unspecified Qualified Code(s): I50.9 - Heart failure, unspecified Assessment/Plan: His troponins were normal, ruling out an RI. His Echo done today showed normal LV size and systolic function, therefore this may have been acute diastolic heart failure. He is able to lie flat with no orthopnea. Will stop the iv diuretic. Will request PT eval with saturation of oxygen check. Continue meds for BP and rate control. Follow daily weight and I's and O's. Pt will be transferred to Inpatient status. I updated patient with these data and plan and he is agreeable. (5) Acute exacerbation of COPD with asthma Assessment/Plan: The repeat CXR was read as bilateral atelectasis. Therefore, a portion of the SOB could be an asthmatic exacerbation. mucinex has helped his cough. His Echo does not show pulmonary HTN or Cor Pulmonale, to explain the leg edema. Will continue nebs and Mucinex, add Incentive Spirometry. (6) Hypokalemia Assessment/Plan: Likely low K from his iv diuresis. Replace K and follow daily BMP. (7) JIM on CPAP Assessment/Plan: His home CPAP device was ordered to use here. (8) History of atrial fibrillation Assessment/Plan: He remains on Eliquis for stroke prevention, dose is correct for his age, weight and creat. (9) Hx of coronary artery disease Assessment/Plan: Troponins normal, ruling out RI. No evidence of regional wall motion abnormality on Echo. Continue B-helio & statin. - Current Meds Current Meds: Current Medications Generic Name Dose Route Start Last Admin Trade Name Freq PRN Reason Stop Dose Admin Albuterol/Ipratropium 3 ml 09/26/18 19:36 09/27/18 05:45 Duoneb INH 3 ml Q4HR PRN Administration Wheezing Apixaban 2.5 mg 09/26/18 21:00 09/27/18 10:40 Eliquis PO 2.5 mg BID MARVIN Administration Atorvastatin Calcium 10 mg 09/26/18 21:00 09/26/18 21:01 Lipitor PO 10 mg QPM MARVIN Administration Colchicine 0.6 mg 09/27/18 09:00 09/27/18 10:42 Colcrys PO 0.6 mg DAILY MARVIN Administration Famotidine 20 mg 09/26/18 21:00 09/27/18 10:41 Pepcid PO 20 mg DAILY MARVIN Administration Guaifenesin 600 mg 09/26/18 21:00 09/27/18 10:41 Mucinex PO 600 mg BID MARVIN Administration Vancomycin HCl 1 gm/ Sodium 250 mls @ 250 mls/hr 09/27/18 06:00 09/27/18 07:25 Chloride IV Infused Q12H MARVIN Infusion Ampicillin Sodium/Sulbactam 100 mls @ 200 mls/hr 09/27/18 00:00 09/27/18 06:25 Sodium 3 gm/ Sodium Chloride IV Infused Q6HR MARVIN Infusion Lisinopril 40 mg 09/27/18 09:00 09/27/18 10:41 Zestril PO 40 mg DAILY MARVIN Administration Metoprolol Succinate 50 mg 09/26/18 22:18 09/27/18 10:41 Toprol Xl PO 50 mg DAILY MARVIN Administration Morphine Sulfate 2 mg 09/26/18 17:44 09/27/18 06:29 Morphine (Carpuject) IVP 2 mg Q2HR PRN Administration Dyspnea (Dofetilide [Tikosyn 1 each 09/27/18 09:00 09/27/18 10:43 ] 0.125mg Capsule) PO 1 each BID MARVIN Administration Polyethylene Glycol 17 gm 09/27/18 09:00 09/27/18 10:43 Miralax PO Not Given DAILY MARVIN Sodium Chloride 10 ml 09/26/18 17:44 09/27/18 00:11 Normal Saline Flush 0.9% IVP 10 ml PRN PRN Administration NEEDED PER PROVIDER ORDERS Sodium Chloride 10 ml 09/27/18 01:00 09/27/18 10:45 Normal Saline Flush 0.9% IVP 10 ml 0100,0900,1700 MARVIN Administration - Lab Result Fish Bone Diagrams: 09/27/18 05:45 09/27/18 05:45 - Additional Planning My Orders: My Active Orders 09/26/18 17:44 Activity Orders [RC] Q2HR IO [RC] IOSHIFT Initiate Bowel Care Protocol [RC] .protocol Initiate Line Care Protocol [RC] .protocol Initiate Line Care Protocol [RC] QSHIFT Initiate Personal Care Protoco [RC] .protocol Oxygen Therapy [RC] Routine Telemetry (24 Hour) [RC] Q4HR Vital Signs [RC] Q4HR Morphine Inj (Carpuject) [Morphine (Carpuject)] 2 mg IVP Q2HR PRN Sodium Chloride Flush 0.9% [Normal Saline Flush 0.9%] 10 ml IVP PRN PRN Code Status [OTHERS] Routine Condition of Patient [OTHERS] Routine DVT Prophylaxis [OTHERS] Routine 09/26/18 17:46 Daily Weight [RC] 0600 IV Insert [RC] .ONCE 09/26/18 17:53 Miscellaenous Nursing Order [RC] QSHIFT 09/26/18 17:59 Fluticasone [Flonase] 1 sprays KRISHNA BID PRN guaiFENesin/CODEINE [Robitussin AC] 5 ml PO Q6HR PRN 09/26/18 18:12 CULTURE, BLOOD #1 [RM] Stat 09/26/18 18:13 Home CPAP/BiPAP [RC] .ONCE 09/26/18 18:15 CULTURE, BLOOD #2 [RM] Stat 09/26/18 19:35 RT [Respiratory Care] [RC] .ONCE 09/26/18 19:36 Ipratropium/Albuterol [Duoneb] 3 ml INH Q4HR PRN 09/26/18 19:37 Acetaminophen [Tylenol] 650 mg PO Q4HR PRN 09/26/18 19:39 Elevate Extremity [RC] prn 09/26/18 21:00 Apixaban [Eliquis] 2.5 mg PO BID Atorvastatin [Lipitor] 10 mg PO QPM Famotidine [Pepcid] 20 mg PO DAILY guaiFENesin [Mucinex] 600 mg PO BID 09/26/18 21:17 CUL, RESPIRATORY [RM] Urgent 09/26/18 22:06 Nebulizer [Nebulizer/MDI Tx.] [RC] .Q4PRN 09/26/18 Dinner Low Sodium Diet [DIET] 09/27/18 01:00 Sodium Chloride Flush 0.9% [Normal Saline Flush 0.9%] 10 ml IVP 0100,0900,1700 09/27/18 06:00 Vancomycin Inj [Vancomycin] 1 gm Sodium Chloride 0.9% [Normal Saline 0.9%] 250 ml IV Q12H 09/27/18 08:00 Echo Transthoracic Complete [ECHO] Routine 09/27/18 08:45 IS [Incentive Spirometry - RT] [RC] TID 09/27/18 09:00 Colchicine [Colcrys] 0.6 mg PO DAILY Lisinopril [Zestril] 40 mg PO DAILY Patient Own Med [Patient Own Medication] 1 each PO BID Polyethylene Glycol 3350 [Miralax] 17 gm PO DAILY 09/27/18 11:00 Albuterol 2.5 mg INH RTQ4H 09/27/18 17:00 Pantoprazole [Protonix] 40 mg PO QDDINNER 09/27/18 19:00 Budesonide [Pulmicort] 0.5 mg INH RTBID 09/28/18 05:00 BMP - BASIC METABOLIC PANEL [CHEM] DAILYLAB CBC - COMP BLD CT W/AUTO DIFF [HEME] DAILYLAB 09/28/18 09:00 Allopurinol [Zyloprim] 200 mg PO DAILY Spironolactone [Aldactone] 25 mg PO Q48H 09/28/18 17:30 VANCOMYCIN TROUGH [CHEM] Timed 09/29/18 05:00 BMP - BASIC METABOLIC PANEL [CHEM] DAILYLAB CBC - COMP BLD CT W/AUTO DIFF [HEME] DAILYLAB Subjective - Subjective Patient Reports: Feeling Better, Other (Legs felt better after elevated all night, now hurt this am. Less SOB.) Objective Vital Signs: Vital Signs - 24 hr 09/26/18 09/26/18 09/26/18 15:42 18:19 19:18 Temperature 37 C Heart Rate 74 80 81 Heart Rate [ Brachial] Respiratory 16 16 18 Rate Blood Pressure 118/62 124/67 142/62 H Blood Pressure [Left Brachial artery] Blood Pressure [Right Brachial artery] O2 Saturation 99 97 94 09/26/18 09/26/18 09/26/18 20:05 23:00 23:05 Temperature 37.1 C Heart Rate Heart Rate [ 85 142 H 93 Brachial] Respiratory 18 16 16 Rate Blood Pressure Blood Pressure 112/52 L 114/56 L [Left Brachial artery] Blood Pressure 131/71 H [Right Brachial artery] O2 Saturation 99 93 09/26/18 09/26/18 09/26/18 23:10 23:15 23:20 Temperature Heart Rate Heart Rate [ 85 84 82 Brachial] Respiratory 16 16 14 Rate Blood Pressure Blood Pressure 106/61 108/47 L 108/52 L [Left Brachial artery] Blood Pressure [Right Brachial artery] O2 Saturation 94 96 93 09/26/18 09/27/18 09/27/18 23:35 00:27 05:00 Temperature 37.8 C H 37.8 C H Heart Rate Heart Rate [ 82 80 78 Brachial] Respiratory 16 19 20 Rate Blood Pressure Blood Pressure 115/58 L 112/58 L 123/64 [Left Brachial artery] Blood Pressure [Right Brachial artery] O2 Saturation 94 93 93 09/27/18 09/27/18 05:46 08:28 Temperature 37.7 C H Heart Rate 77 Heart Rate [ 80 Brachial] Respiratory 18 19 Rate Blood Pressure Blood Pressure 111/54 L [Left Brachial artery] Blood Pressure [Right Brachial artery] O2 Saturation 97 Oxygen O2 Source Room air I&O (Last 24 Hrs): Intake and Output Totals x24h 09/25/18 09/26/18 09/27/18 23:59 23:59 23:59 Intake Total 1310 1470 Output Total 400 1275 Balance 910 195 General: Alert, Oriented x3 HEENT: Mucous membr. moist/pink Neck: Supple, Other (Obese) Neuro: Alert, Non Focal Cardiovascular: Regular rate, No murmurs Respiratory: No respiratory distress, Breath sounds nml Abdomen: Soft, Other (Obese) Extremities: Other (Redness resolved, 1+ edema R>L, L toes tender with fair pulse) - Results Results: Laboratory Results WBC 11.3 x10^3/uL (4.8-10.8) H 09/27/18 05:45 RBC 3.99 10^6/uL (4.70-6.10) L 09/27/18 05:45 Hgb 11.5 g/dL (14.0-18.0) L 09/27/18 05:45 Hct 35.7 % (42.0-52.0) L 09/27/18 05:45 MCV 89.5 fL (80.0-94.0) 09/27/18 05:45 MCH 28.8 pg (27.0-31.0) 09/27/18 05:45 MCHC 32.2 g/dL (32.0-36.0) 09/27/18 05:45 RDW 15.1 % (12.0-15.0) H 09/27/18 05:45 Plt Count 243 10^3/uL (130-450) 09/27/18 05:45 MPV 8.4 fL (7.4-11.4) 09/27/18 05:45 Neut # (Auto) 9.3 10^3/uL (1.5-6.6) H 09/27/18 05:45 Lymph # (Auto) 0.6 10^3/uL (1.5-3.5) L 09/27/18 05:45 [place] # (Auto) 1.3 10^3/uL (0.0-1.0) H 09/27/18 05:45 Eos # (Auto) 0.0 10^3/uL (0.0-0.7) 09/27/18 05:45 Baso # (Auto) 0.1 10^3/uL (0.0-0.1) 09/27/18 05:45 Absolute Nucleated RBC 0.00 x10^3/uL 09/27/18 05:45 Nucleated RBC % 0.0 /100WBC 09/27/18 05:45 ESR 49 mm/Hr (0-20) H 09/27/18 05:45 Sodium 138 mmol/L (135-145) 09/27/18 05:45 Potassium 3.2 mmol/L (3.5-5.0) L 09/27/18 05:45 Chloride 97 mmol/L (101-111) L 09/27/18 05:45 Carbon Dioxide 31 mmol/L (21-32) 09/27/18 05:45 Anion Gap 10.0 (6-13) 09/27/18 05:45 BUN 25 mg/dL (6-20) H 09/27/18 05:45 Creatinine 1.5 mg/dL (0.6-1.2) H 09/27/18 05:45 Estimated GFR (MDRD) 45 (>89) L 09/27/18 05:45 Glucose 108 mg/dL (70-100) H 09/27/18 05:45 Lactic Acid 1.0 mmol/L (0.5-2.2) 09/26/18 18:15 Uric Acid 10.9 mg/dL (2.6-7.2) H 09/26/18 23:03 Calcium 8.2 mg/dL (8.5-10.3) L 09/27/18 05:45 Magnesium 2.0 mg/dL (1.7-2.8) 09/27/18 05:45 Total Bilirubin 1.1 mg/dL (0.2-1.0) H 09/27/18 05:45 AST 20 IU/L (10-42) 09/27/18 05:45 ALT 15 IU/L (10-60) 09/27/18 05:45 Alkaline Phosphatase 63 IU/L (42-121) 09/27/18 05:45 Troponin I < 0.04 ng/mL (<0.49) 09/27/18 05:45 C-Reactive Protein 20.9 mg/dL (0-1.0) H 09/26/18 16:30 B-Natriuretic Peptide 438 pg/mL (5-100) H 09/27/18 05:45 Total Protein 6.8 g/dL (6.7-8.2) 09/27/18 05:45 Albumin 3.3 g/dL (3.2-5.5) 09/27/18 05:45 Globulin 3.5 g/dL (2.1-4.2) 09/27/18 05:45 Albumin/Globulin Ratio 0.9 (1.0-2.2) L 09/27/18 05:45 Lipase 25 U/L (22-51) 09/26/18 16:30 Urine Color YELLOW 09/26/18 17:18 Urine Clarity CLEAR (CLEAR) 09/26/18 17:18 Urine pH 5.5 PH (5.0-7.5) 09/26/18 17:18 Ur Specific [place] 1.020 (1.002-1.030) 09/26/18 17:18 Urine Protein TRACE mg/dL (NEGATIVE) 09/26/18 17:18 Urine Glucose (UA) NEGATIVE mg/dL (NEGATIVE) 09/26/18 17:18 Urine Ketones NEGATIVE mg/dL (NEGATIVE) 09/26/18 17:18 Urine Occult Blood MODERATE (NEGATIVE) H 09/26/18 17:18 Urine Nitrite NEGATIVE (NEGATIVE) 09/26/18 17:18 Urine Bilirubin NEGATIVE (NEGATIVE) 09/26/18 17:18 Urine Urobilinogen 0.2 (NORMAL) E.U./dL (NORMAL) 09/26/18 17:18 Ur Leukocyte Esterase NEGATIVE (NEGATIVE) 09/26/18 17:18 Urine RBC 0-5 /HPF (0-5) 09/26/18 17:18 Urine WBC 0-3 /HPF (0-3) 09/26/18 17:18 Ur Squamous Epith Cells RARE Squamous (<= Few) 09/26/18 17:18 Urine Bacteria None Seen /HPF (None Seen) 09/26/18 17:18 Ur Microscopic Review INDICATED 09/26/18 17:18 Urine Culture Comments NOT INDICATED 09/26/18 17:18
[2018-09-27] MEDS ORDERED: ALBUTEROL NEB 2.5 MG/3 ML INH SCH ×2 (11:00→20:00)
[2018-09-27] MEDS ORDERED: AMPICILLIN/SULBACTAM 3 GM in SODIUM CHLORIDE 0.9% MINIBAG 100 ML IV SCH (15:00)
[2018-09-27] MEDS ORDERED: POTASSIUM CHLORIDE 10 MEQ CAPSULE PO ONE (17:00)
[2018-09-27] MEDS: PANTOPRAZOLE 40 MG TABLET PO SCH (17:31)
[2018-09-27] MEDS: VANCOMYCIN INJ 0.75 GM in SODIUM CHLORIDE 0.9% 250 ML IV SCH (18:08)
[2018-09-27] MEDS ORDERED: ALBUTEROL NEB 2.5 MG/3 ML INH ONE (20:09)
[2018-09-27] MEDS: BUDESONIDE 0.5 MG/2 ML NEB INH SCH (20:20)
[2018-09-27] MEDS: ATORVASTATIN 10 MG TABLET PO SCH (20:22)
[2018-09-28] MEDS: AMPICILLIN/SULBACTAM 3 GM in SODIUM CHLORIDE 0.9% MINIBAG 100 ML IV SCH ×5 (00:07→23:46)
[2018-09-28] MEDS: SODIUM CHLORIDE FLUSH 0.9% 10 ML SYRINGE IVP SCH ×5 (00:08→23:47)
[2018-09-28] MEDS: MORPHINE 2 MG/ML CARPUJECT IVP PRN (00:08)
[2018-09-28] MEDS: ACETAMINOPHEN 325 MG TABLET PO PRN (00:08)
[2018-09-28] MEDS: guaiFENesin/CODEINE 5 ML UDC PO PRN ×2 (00:23→20:51)
[2018-09-28] MEDS: SODIUM CHLORIDE FLUSH 0.9% 10 ML SYRINGE IVP PRN (05:49)
[2018-09-28 06:07] LABS: BASOPHILS % (AUTO) 0.3 %; EOSINOPHILS % (AUTO) 0.3 %; HGB - HEMOGLOBIN 10.3 g/dL (14.0-18.0); LYMPHOCYTES # (AUTO) 0.7 10^3/uL (1.5-3.5); MEAN CORPUSCULAR HGB CONC 32.6 g/dL (32.0-36.0); MEAN PLATELET VOLUME 8.4 fL (7.4-11.4); MONOCYTES # (AUTO) 1.1 10^3/uL (0.0-1.0); MONOCYTES % (AUTO) 10.9 %; NEUTROPHILS # (AUTO) 8.5 10^3/uL (1.5-6.6); NEUTROPHILS % (AUTO) 81.5 %; PLT - PLATELET COUNT 212 10^3/uL (130-450); RED BLOOD COUNT 3.55 10^6/uL (4.70-6.10); WHITE BLOOD COUNT 10.4 x10^3/uL (4.8-10.8)
[2018-09-28 06:19] LABS: CALCIUM 8.1 mg/dL (8.5-10.3); CREATININE 1.8 mg/dL (0.6-1.2)
[2018-09-28] MEDS: VANCOMYCIN INJ 0.75 GM in SODIUM CHLORIDE 0.9% 250 ML IV SCH (06:47)
[2018-09-28] MEDS: BUDESONIDE 0.5 MG/2 ML NEB INH SCH ×2 (07:39→19:22)
[2018-09-28] MEDS: IPRATROPIUM/ALBUTEROL 3 ML NEB INH PRN (07:39)
[2018-09-28] MEDS ORDERED: SPIRONOLACTONE 25 MG TABLET PO SCH (09:00)
[2018-09-28] MEDS ORDERED: POTASSIUM CHLORIDE 20 MEQ TABLET PO SCH (09:30)
--- NOTE | 2018-09-28 11:14 | PROVIDER PROGRESS NOTE ---
Assessment/Plan - Problem List (1) Atrial fibrillation with RVR Assessment/Plan: He describes getting this "heartburn" when he is in Afib and thinks it may be from not getting his Tikosyn at exactly 0900 and 2100. Will give a.m. dose now and assess if he needs additional meds for rate control. He is already on appropriate Eliquis dose, to continue. Start PT tomorrow (2) Acute exacerbation of COPD with asthma Assessment/Plan: It appears he has chronic asthma or bronchitis. Will increase his nebs and add steroids. Continue IS. (3) Cellulitis Qualifiers: Site of cellulitis: extremity Site of cellulitis of extremity: lower extremity Laterality: right Qualified Code(s): L03.115 - Cellulitis of right lower limb Assessment/Plan: Improved by clinical exam. No growth in blood culture. Will change iv to po antibiotics tomorrow. (4) Gout attack Qualifiers: Gout site: foot Laterality: left Assessment/Plan: Pt on Colchicine and Allopurinol. Start PT tomorrow (5) Acute kidney injury superimposed on chronic kidney disease Assessment/Plan: Due to several days of diuretics, he has pre-renal azotemia. Will give a day of iv fluids and stop all diuretics. Follow BMP daily. (6) Hypokalemia Assessment/Plan: I suspect this is fom diuretics before and during this hospitalization. Replace and follow electrolytes. (7) JIM on CPAP Assessment/Plan: His home CPAP is being used here at . (8) Hx of coronary artery disease Assessment/Plan: Stable, no angina or troponin elevation. (9) Acute exacerbation of CHF (congestive heart failure) Qualifiers: Heart failure type: unspecified Qualified Code(s): I50.9 - Heart failure, unspecified Assessment/Plan: This has been ruled out. - Current Meds Current Meds: Current Medications Generic Name Dose Route Start Last Admin Trade Name Freq PRN Reason Stop Dose Admin Acetaminophen 650 mg 09/26/18 19:37 09/28/18 00:08 Tylenol PO 650 mg Q4HR PRN Administration Pain or Fever > 38C (100.4F) Albuterol/Ipratropium 3 ml 09/26/18 19:36 09/28/18 07:39 Duoneb INH 3 ml Q4HR PRN Administration Wheezing Apixaban 2.5 mg 09/26/18 21:00 09/27/18 20:22 Eliquis PO 2.5 mg BID MARVIN Administration Atorvastatin Calcium 10 mg 09/26/18 21:00 09/27/18 20:22 Lipitor PO 10 mg QPM MARVIN Administration Budesonide 0.5 mg 09/27/18 19:00 09/28/18 07:39 Pulmicort INH 0.5 mg RTBID MARVIN Administration Colchicine 0.6 mg 09/27/18 09:00 09/27/18 10:42 Colcrys PO 0.6 mg DAILY MARVIN Administration Famotidine 20 mg 09/26/18 21:00 09/27/18 10:41 Pepcid PO 20 mg DAILY MARVIN Administration Guaifenesin 600 mg 09/26/18 21:00 09/27/18 20:22 Mucinex PO 600 mg BID MARVIN Administration Guaifenesin/Codeine Phosphate 5 ml 09/26/18 17:59 09/28/18 00:23 Robitussin Ac PO 5 ml Q6HR PRN Administration Cough Ampicillin Sodium/Sulbactam 100 mls @ 200 mls/hr 09/27/18 00:00 09/28/18 06:51 Sodium 3 gm/ Sodium Chloride IV Infused Q6HR MARVIN Infusion Vancomycin HCl 0.75 gm/ Sodium 250 mls @ 250 mls/hr 09/27/18 18:00 09/28/18 06:47 Chloride IV 250 mls/hr Q12H MARVIN Administration Metoprolol Succinate 50 mg 09/26/18 22:18 09/27/18 10:41 Toprol Xl PO 50 mg DAILY MARVIN Administration Morphine Sulfate 2 mg 09/26/18 17:44 09/28/18 00:08 Morphine (Carpuject) IVP 2 mg Q2HR PRN Administration Dyspnea Pantoprazole Sodium 40 mg 09/27/18 17:00 09/27/18 17:31 Protonix PO 40 mg QDDINNER MARVIN Administration (Dofetilide [Tikosyn 1 each 09/27/18 09:00 09/28/18 09:02 ] 0.125mg Capsule) PO 1 each BID MARVIN Administration Polyethylene Glycol 17 gm 09/27/18 09:00 09/27/18 10:43 Miralax PO Not Given DAILY MARVIN Sodium Chloride 10 ml 09/26/18 17:44 09/28/18 05:49 Normal Saline Flush 0.9% IVP 10 ml PRN PRN Administration NEEDED PER PROVIDER ORDERS Sodium Chloride 10 ml 09/27/18 01:00 09/28/18 00:08 Normal Saline Flush 0.9% IVP 10 ml 0100,0900,1700 MARVIN Administration - Lab Result Fish Bone Diagrams: 09/28/18 05:49 09/28/18 05:49 - Additional Planning My Orders: My Active Orders 09/27/18 16:20 Telemetry- [RC] Q4HR 09/27/18 17:00 Pantoprazole [Protonix] 40 mg PO QDDINNER 09/27/18 18:00 Vancomycin Inj [Vancomycin] 0.75 gm Sodium Chloride 0.9% [Normal Saline 0.9%] 250 ml IV Q12H 09/27/18 19:00 Budesonide [Pulmicort] 0.5 mg INH RTBID 09/28/18 09:00 Allopurinol [Zyloprim] 200 mg PO DAILY 09/28/18 09:31 Miscellaenous Nursing Order [RC] QSHIFT 09/28/18 10:00 Ns W/20 Meq KCl [Normal Saline 0.9% W/20 Meq KCl] 1,000 ml IV 125 mls/hr 09/28/18 17:30 VANCOMYCIN TROUGH [CHEM] Timed 09/29/18 05:00 BMP - BASIC METABOLIC PANEL [CHEM] DAILYLAB CBC - COMP BLD CT W/AUTO DIFF [HEME] DAILYLAB Subjective - Subjective Patient Reports: Other (Got heartburn, which is his sx of Afib. This started after a coughing fit.) Objective Vital Signs: Vital Signs - 24 hr 09/27/18 09/27/18 09/27/18 12:14 15:42 17:30 Temperature 37.5 C 37.1 C Heart Rate 80 Heart Rate [ 77 102 H Brachial] Respiratory 20 20 16 Rate Blood Pressure 114/55 L 114/60 [Left Brachial artery] O2 Saturation 95 96 09/27/18 09/27/18 09/27/18 20:27 21:00 22:00 Temperature 37.5 C 37.1 C Heart Rate 70 73 Heart Rate [ 77 Brachial] Respiratory 18 20 20 Rate Blood Pressure 125/62 [Left Brachial artery] O2 Saturation 95 94 09/28/18 09/28/18 09/28/18 00:11 01:00 05:00 Temperature 38.0 C H 37.1 C 37.1 C Heart Rate Heart Rate [ 88 73 Brachial] Respiratory 19 20 Rate Blood Pressure 121/58 L 102/54 L [Left Brachial artery] O2 Saturation 96 95 09/28/18 09/28/18 07:46 08:53 Temperature 36.8 C Heart Rate 76 Heart Rate [ 78 Brachial] Respiratory 20 18 Rate Blood Pressure 113/61 [Left Brachial artery] O2 Saturation 97 Oxygen O2 Source Room air I&O (Last 24 Hrs): Intake and Output Totals x24h 09/26/18 09/27/18 09/28/18 23:59 23:59 23:59 Intake Total 1310 3040 640 Output Total 400 1625 250 Balance 910 1415 390 General: Oriented x3 HEENT: Mucous membr. moist/pink Neck: Supple, No JVD Neuro: Non Focal Cardiovascular: No murmurs, Other (Tachycardic) Respiratory: Other (Poor air movement but no wheezes or rales) Abdomen: Soft, Other (Obese with pannus) Extremities: Other (1+ edema to mid shins, no oh redness. Both soles red over blls of feet and mildly tender) - Results Results: Laboratory Results WBC 10.4 x10^3/uL (4.8-10.8) 09/28/18 05:49 RBC 3.55 10^6/uL (4.70-6.10) L 09/28/18 05:49 Hgb 10.3 g/dL (14.0-18.0) L 09/28/18 05:49 Hct 31.6 % (42.0-52.0) L 09/28/18 05:49 MCV 89.0 fL (80.0-94.0) 09/28/18 05:49 MCH 29.0 pg (27.0-31.0) 09/28/18 05:49 MCHC 32.6 g/dL (32.0-36.0) 09/28/18 05:49 RDW 15.0 % (12.0-15.0) 09/28/18 05:49 Plt Count 212 10^3/uL (130-450) 09/28/18 05:49 MPV 8.4 fL (7.4-11.4) 09/28/18 05:49 Neut # (Auto) 8.5 10^3/uL (1.5-6.6) H 09/28/18 05:49 Lymph # (Auto) 0.7 10^3/uL (1.5-3.5) L 09/28/18 05:49 [place] # (Auto) 1.1 10^3/uL (0.0-1.0) H 09/28/18 05:49 Eos # (Auto) 0.0 10^3/uL (0.0-0.7) 09/28/18 05:49 Baso # (Auto) 0.0 10^3/uL (0.0-0.1) 09/28/18 05:49 Absolute Nucleated RBC 0.00 x10^3/uL 09/28/18 05:49 Nucleated RBC % 0.0 /100WBC 09/28/18 05:49 ESR 49 mm/Hr (0-20) H 09/27/18 05:45 Sodium 139 mmol/L (135-145) 09/28/18 05:49 Potassium 3.0 mmol/L (3.5-5.0) L 09/28/18 05:49 Chloride 100 mmol/L (101-111) L 09/28/18 05:49 Carbon Dioxide 28 mmol/L (21-32) 09/28/18 05:49 Anion Gap 11.0 (6-13) 09/28/18 05:49 BUN 36 mg/dL (6-20) H 09/28/18 05:49 Creatinine 1.8 mg/dL (0.6-1.2) H 09/28/18 05:49 Estimated GFR (MDRD) 36 (>89) L 09/28/18 05:49 Glucose 114 mg/dL (70-100) H 09/28/18 05:49 Lactic Acid 1.0 mmol/L (0.5-2.2) 09/26/18 18:15 Uric Acid 10.9 mg/dL (2.6-7.2) H 09/26/18 23:03 Calcium 8.1 mg/dL (8.5-10.3) L 09/28/18 05:49 Magnesium 2.0 mg/dL (1.7-2.8) 09/27/18 05:45 Total Bilirubin 1.1 mg/dL (0.2-1.0) H 09/27/18 05:45 AST 20 IU/L (10-42) 09/27/18 05:45 ALT 15 IU/L (10-60) 09/27/18 05:45 Alkaline Phosphatase 63 IU/L (42-121) 09/27/18 05:45 Troponin I < 0.04 ng/mL (<0.49) 09/27/18 05:45 C-Reactive Protein 20.9 mg/dL (0-1.0) H 09/26/18 16:30 B-Natriuretic Peptide 438 pg/mL (5-100) H 09/27/18 05:45 Total Protein 6.8 g/dL (6.7-8.2) 09/27/18 05:45 Albumin 3.3 g/dL (3.2-5.5) 09/27/18 05:45 Globulin 3.5 g/dL (2.1-4.2) 09/27/18 05:45 Albumin/Globulin Ratio 0.9 (1.0-2.2) L 09/27/18 05:45 Lipase 25 U/L (22-51) 09/26/18 16:30 Urine Color YELLOW 09/26/18 17:18 Urine Clarity CLEAR (CLEAR) 09/26/18 17:18 Urine pH 5.5 PH (5.0-7.5) 09/26/18 17:18 Ur Specific [place] 1.020 (1.002-1.030) 09/26/18 17:18 Urine Protein TRACE mg/dL (NEGATIVE) 09/26/18 17:18 Urine Glucose (UA) NEGATIVE mg/dL (NEGATIVE) 09/26/18 17:18 Urine Ketones NEGATIVE mg/dL (NEGATIVE) 09/26/18 17:18 Urine Occult Blood MODERATE (NEGATIVE) H 09/26/18 17:18 Urine Nitrite NEGATIVE (NEGATIVE) 09/26/18 17:18 Urine Bilirubin NEGATIVE (NEGATIVE) 09/26/18 17:18 Urine Urobilinogen 0.2 (NORMAL) E.U./dL (NORMAL) 09/26/18 17:18 Ur Leukocyte Esterase NEGATIVE (NEGATIVE) 09/26/18 17:18 Urine RBC 0-5 /HPF (0-5) 09/26/18 17:18 Urine WBC 0-3 /HPF (0-3) 09/26/18 17:18 Ur Squamous Epith Cells RARE Squamous (<= Few) 09/26/18 17:18 Urine Bacteria None Seen /HPF (None Seen) 09/26/18 17:18 Ur Microscopic Review INDICATED 09/26/18 17:18 Urine Culture Comments NOT INDICATED 09/26/18 17:18
[2018-09-28] MEDS: NS W/20 MEQ KCL 1,000 ML IV SCH ×2 (11:24→20:43)
[2018-09-28] MEDS: ALLOPURINOL 100 MG TABLET PO SCH (11:30)
[2018-09-28] MEDS: guaiFENesin 600 MG TABLET PO SCH ×2 (11:31→20:43)
[2018-09-28] MEDS: APIXABAN 2.5 MG TABLET PO SCH ×2 (11:32→20:43)
[2018-09-28] MEDS: FAMOTIDINE 20 MG TABLET PO SCH (11:32)
[2018-09-28] MEDS: METOPROLOL SUCCINATE 50 MG TABLET PO SCH (11:33)
[2018-09-28] MEDS: COLCHICINE 0.6 MG TABLET PO SCH (11:34)
[2018-09-28] MEDS: POLYETHYLENE GLYCOL 3350 17 GM PACKET PO SCH (11:35)
[2018-09-28] MEDS ORDERED: MORPHINE 2 MG/ML SYRINGE IVP PRN (12:31)
[2018-09-28] MEDS: methylPREDNISolone SUCCINATE 40 MG/ML VIAL IVP SCH ×2 (16:26→22:26)
[2018-09-28] MEDS: PANTOPRAZOLE 40 MG TABLET PO SCH (16:26)
[2018-09-28 18:19] LABS: VANCOMYCIN,TROUGH 28.4 ug/mL (10.0-20.0)
[2018-09-28] MEDS: LEVALBUTEROL 1.25 MG/3 ML NEB INH PRN (19:22)
[2018-09-28] MEDS: ATORVASTATIN 10 MG TABLET PO SCH (20:43)
[2018-09-29] MEDS ORDERED: NS W/20 MEQ KCL 1,000 ML IV SCH (00:13)
[2018-09-29] MEDS: LEVALBUTEROL 1.25 MG/3 ML NEB INH PRN ×3 (01:04→18:58)
[2018-09-29] MEDS: methylPREDNISolone SUCCINATE 40 MG/ML VIAL IVP SCH ×3 (05:36→21:06)
[2018-09-29] MEDS: AMPICILLIN/SULBACTAM 3 GM in SODIUM CHLORIDE 0.9% MINIBAG 100 ML IV SCH (05:37)
[2018-09-29] MEDS: SODIUM CHLORIDE FLUSH 0.9% 10 ML SYRINGE IVP PRN ×2 (05:37→14:36)
[2018-09-29] MEDS: SODIUM CHLORIDE FLUSH 0.9% 10 ML SYRINGE IVP SCH ×2 (05:37→09:35)
[2018-09-29] MEDS: guaiFENesin/CODEINE 5 ML UDC PO PRN ×2 (05:52→21:05)
[2018-09-29 06:15] LABS: BASOPHILS % (AUTO) 0.5 %; HGB - HEMOGLOBIN 10.3 g/dL (14.0-18.0); LYMPHOCYTES # (AUTO) 0.2 10^3/uL (1.5-3.5); LYMPHOCYTES % (AUTO) 2.4 %; MEAN CORPUSCULAR HEMOGLOBIN 29.1 pg (27.0-31.0); MEAN CORPUSCULAR HGB CONC 32.4 g/dL (32.0-36.0); MEAN CORPUSCULAR VOLUME 89.6 fL (80.0-94.0); MEAN PLATELET VOLUME 8.6 fL (7.4-11.4); MONOCYTES # (AUTO) 0.3 10^3/uL (0.0-1.0); MONOCYTES % (AUTO) 2.8 %; NEUTROPHILS # (AUTO) 9.1 10^3/uL (1.5-6.6); NEUTROPHILS % (AUTO) 94.3 %; PLT - PLATELET COUNT 252 10^3/uL (130-450); RED BLOOD COUNT 3.54 10^6/uL (4.70-6.10); RED CELL DISTRIBUTION WIDTH 15.4 % (12.0-15.0); WHITE BLOOD COUNT 9.6 x10^3/uL (4.8-10.8)
[2018-09-29 06:21] LABS: CREATININE 1.7 mg/dL (0.6-1.2)
[2018-09-29] MEDS ORDERED: VANCOMYCIN INJ 0.75 GM in SODIUM CHLORIDE 0.9% 250 ML IV SCH (08:00)
[2018-09-29] MEDS: BUDESONIDE 0.5 MG/2 ML NEB INH SCH ×2 (08:04→18:59)
[2018-09-29] MEDS: POLYETHYLENE GLYCOL 3350 17 GM PACKET PO SCH (09:34)
[2018-09-29] MEDS: FAMOTIDINE 20 MG TABLET PO SCH (09:34)
[2018-09-29] MEDS: APIXABAN 2.5 MG TABLET PO SCH ×2 (09:34→21:05)
[2018-09-29] MEDS: ALLOPURINOL 100 MG TABLET PO SCH (09:34)
[2018-09-29] MEDS: COLCHICINE 0.6 MG TABLET PO SCH (09:34)
[2018-09-29] MEDS: guaiFENesin 600 MG TABLET PO SCH ×2 (09:34→21:05)
[2018-09-29] MEDS: METOPROLOL SUCCINATE 50 MG TABLET PO SCH ×2 (09:34→21:05)
--- NOTE | 2018-09-29 13:03 | PROVIDER PROGRESS NOTE ---
Assessment/Plan - Problem List (1) Atrial fibrillation with RVR Assessment/Plan: He still had an episode of paroxysmal Afib with RVR which broke spontaneously. It occured when he walked (for the first time since here) with PT. Will increase B-helio dose for rate control. Pt has a pacemaker for backup. Continue Eliquis. Continue telemetry. Check TSH for hyperthyroidism. (2) V-tach Assessment/Plan: When he was in Afib with RVR, he had several runs of monomorphic VTach. His LVEF is normal by Echo done 2 days ago. Troponins were normal at admission Will monitor K and Mg and check a troponin. Will increase B-helio dose. (3) Acute exacerbation of COPD with asthma Assessment/Plan: Sputum is growing mixed christian. His cogh is minimally better with Mucinex. His SOB is substantially better with scheduled nebulizers and iv steroids. Nebs were changed 2 days ago from Duoneb to Xopenex due to tachycardia. (4) Bronchitis Assessment/Plan: His sputum is growing mixed christian, but specifically Gram neg and Yeast. Will change to po antibiotics, for coverage of Staph for cellulitis, anaerobes for possible otitis media, also gram negs in sputum (Keflex and Clindamycin) and start Diflucan for yeast. Continue pulmonary toilet with Mucinex. Add neosyneph nasal spray. (5) Cellulitis Qualifiers: Site of cellulitis: extremity Site of cellulitis of extremity: lower extremity Laterality: right Qualified Code(s): L03.115 - Cellulitis of right lower limb Assessment/Plan: Vanco level high. Will stop iv Vanco. Will change to po antibiotics, for coverage of Staph for his leg cellulitis, anaerobes for possible otitis media, also gram negs in sputum (therefore, Keflex and Clindamycin) and start Diflucan for yeast in sputum. (6) Gout attack Qualifiers: Gout site: foot Laterality: left Assessment/Plan: Will stop Colchicine, due to interaction with Diflucan. Continue Allopurinol. If he has alot of pain when starting walking with PT today, will start Motrin or add pain meds like T&C#3. (7) Peripheral neuropathy Assessment/Plan: This may be causing his pain in feet, plus the numbness. Will obtain leg Dopplers: venous and arterial. Increase OOB to chair. (8) Acute kidney injury superimposed on chronic kidney disease Assessment/Plan: Slowly improving creat from 1.8 yesterday to 1.7 today, afte 2 days of iv hydration. Stop iv hydration today. Remain off diuretic. Avoid nephrotoxins. Monitor renal labs daily, especially if he is on NSAIDs. (9) Anemia Assessment/Plan: Will check B12, Fiolate, Iron panel and guiac of stool. Replace if low. (10) JIM on CPAP Assessment/Plan: Using his home CPAP unit here. (11) Hx of coronary artery disease Assessment/Plan: He has reported "indigestion" when he is tachycardic. This may be his angina. Will increase B-helio as above. He is not on ASA or Plavix despite a Hx of coronary stents- unclear why. (12) Hypokalemia Assessment/Plan: Resolved with replacement and stopping diuretics. - Current Meds Current Meds: Current Medications Generic Name Dose Route Start Last Admin Trade Name Freq PRN Reason Stop Dose Admin Acetaminophen 650 mg 09/26/18 19:37 09/28/18 00:08 Tylenol PO 650 mg Q4HR PRN Administration Pain or Fever > 38C (100.4F) Allopurinol 200 mg 09/28/18 09:00 09/29/18 09:34 Zyloprim PO 200 mg DAILY MARVIN Administration Apixaban 2.5 mg 09/26/18 21:00 09/29/18 09:34 Eliquis PO 2.5 mg BID MARVIN Administration Atorvastatin Calcium 10 mg 09/26/18 21:00 09/28/18 20:43 Lipitor PO 10 mg QPM MARVIN Administration Budesonide 0.5 mg 09/27/18 19:00 09/29/18 08:04 Pulmicort INH 0.5 mg RTBID MARVIN Administration Colchicine 0.6 mg 09/27/18 09:00 09/29/18 09:34 Colcrys PO 0.6 mg DAILY MARVIN Administration Famotidine 20 mg 09/26/18 21:00 09/29/18 09:34 Pepcid PO 20 mg DAILY MARVIN Administration Guaifenesin 600 mg 09/26/18 21:00 09/29/18 09:34 Mucinex PO 600 mg BID MARVIN Administration Guaifenesin/Codeine Phosphate 5 ml 09/26/18 17:59 09/29/18 05:52 Robitussin Ac PO 5 ml Q6HR PRN Administration Cough Levalbuterol HCl 1.25 mg 09/28/18 15:39 09/29/18 08:04 Xopenex INH 1.25 mg Q4H PRN Administration Shortness of Air/Wheezing Methylprednisolone 40 mg 09/28/18 16:00 09/29/18 05:36 Solu-Medrol (40mg Vial) IVP 40 mg TID MARVIN Administration Metoprolol Succinate 50 mg 09/26/18 22:18 09/29/18 09:34 Toprol Xl PO 50 mg DAILY MARVIN Administration Morphine Sulfate 2 mg 09/28/18 12:31 09/29/18 09:34 Morphine IVP 2 mg Q2HR PRN Administration Dyspnea Pantoprazole Sodium 40 mg 09/27/18 17:00 09/28/18 16:26 Protonix PO 40 mg QDDINNER MARVIN Administration (Dofetilide [Tikosyn 1 each 09/27/18 09:00 09/29/18 09:36 ] 0.125mg Capsule) PO 1 each BID MARVIN Administration Polyethylene Glycol 17 gm 09/27/18 09:00 09/29/18 09:34 Miralax PO 17 gm DAILY MARVIN Administration Sodium Chloride 10 ml 09/26/18 17:44 09/29/18 05:37 Normal Saline Flush 0.9% IVP 10 ml PRN PRN Administration NEEDED PER PROVIDER ORDERS Sodium Chloride 10 ml 09/27/18 01:00 09/29/18 09:35 Normal Saline Flush 0.9% IVP 10 ml 0100,0900,1700 MARVIN Administration - Lab Result Fish Bone Diagrams: 09/29/18 06:02 09/29/18 14:25 - Additional Planning My Orders: My Active Orders 09/28/18 12:31 Morphine Inj [Morphine] 2 mg IVP Q2HR PRN 09/28/18 15:39 Levalbuterol [Xopenex] 1.25 mg INH Q4H PRN 09/28/18 16:00 methylPREDNISolone SUCCINATE [SOLU-Medrol (40MG VIAL)] 40 mg IVP TID 10/01/18 07:30 VANCOMYCIN TROUGH [CHEM] Timed Subjective - Subjective Patient Reports: Cough, Other (Still coughing, less SOB, has feeling of ears "blocked", still has pain in balls of feet, stood for the first time today.) Nursing Reports: Other (Told PTherapist that he has constant numbness of toes and feet, makes for difficulty walking.) Objective Vital Signs: Vital Signs - 24 hr 09/28/18 09/28/18 09/28/18 13:00 15:41 19:20 Temperature 36.8 C 36.7 C Heart Rate 84 Heart Rate [ 88 85 Brachial] Respiratory 20 26 H 20 Rate Blood Pressure 108/59 L 122/64 [Left Brachial artery] Blood Pressure [Right Brachial artery] O2 Saturation 98 95 09/28/18 09/29/18 09/29/18 20:40 00:01 01:01 Temperature 37.4 C 36.5 C Heart Rate 75 Heart Rate [ 88 81 Brachial] Respiratory 22 20 20 Rate Blood Pressure [Left Brachial artery] Blood Pressure 116/67 134/78 H [Right Brachial artery] O2 Saturation 94 94 09/29/18 09/29/18 04:59 08:05 Temperature 36.4 C L 36.8 C Heart Rate 82 Heart Rate [ 84 80 Brachial] Respiratory 20 16 Rate Blood Pressure [Left Brachial artery] Blood Pressure 104/65 111/63 [Right Brachial artery] O2 Saturation 97 95 Oxygen O2 Source Room air I&O (Last 24 Hrs): Intake and Output Totals x24h 09/27/18 09/28/18 09/29/18 23:59 23:59 23:59 Intake Total 3040 3080 560 Output Total 1625 1100 750 Balance 1415 1980 -190 General: Alert, Oriented x3, No acute distress HEENT: Mucous membr. moist/pink, Other (L ear tympanic membrane white, R ear cannal full of cerumen) Neck: Supple, No JVD Neuro: Other (Numbness of entire foot bilat, dorsum more numb than plantar surface) Cardiovascular: No murmurs Respiratory: No respiratory distress, Breath sounds nml Abdomen: Soft, Other (Obese with pannus) Extremities: Other (1+ edema to knees, no redness of shins, toes are edematous, slight redness.) - Results Results: Laboratory Results WBC 9.6 x10^3/uL (4.8-10.8) 09/29/18 06:02 RBC 3.54 10^6/uL (4.70-6.10) L 09/29/18 06:02 Hgb 10.3 g/dL (14.0-18.0) L 09/29/18 06:02 Hct 31.7 % (42.0-52.0) L 09/29/18 06:02 MCV 89.6 fL (80.0-94.0) 09/29/18 06:02 MCH 29.1 pg (27.0-31.0) 09/29/18 06:02 MCHC 32.4 g/dL (32.0-36.0) 09/29/18 06:02 RDW 15.4 % (12.0-15.0) H 09/29/18 06:02 Plt Count 252 10^3/uL (130-450) 09/29/18 06:02 MPV 8.6 fL (7.4-11.4) 09/29/18 06:02 Neut # (Auto) 9.1 10^3/uL (1.5-6.6) H 09/29/18 06:02 Lymph # (Auto) 0.2 10^3/uL (1.5-3.5) L 09/29/18 06:02 [place] # (Auto) 0.3 10^3/uL (0.0-1.0) 09/29/18 06:02 Eos # (Auto) 0.0 10^3/uL (0.0-0.7) 09/29/18 06:02 Baso # (Auto) 0.0 10^3/uL (0.0-0.1) 09/29/18 06:02 Absolute Nucleated RBC 0.00 x10^3/uL 09/29/18 06:02 Nucleated RBC % 0.0 /100WBC 09/29/18 06:02 ESR 49 mm/Hr (0-20) H 09/27/18 05:45 Sodium 137 mmol/L (135-145) 09/29/18 06:02 Potassium 3.5 mmol/L (3.5-5.0) 09/29/18 06:02 Chloride 99 mmol/L (101-111) L 09/29/18 06:02 Carbon Dioxide 25 mmol/L (21-32) 09/29/18 06:02 Anion Gap 13.0 (6-13) 09/29/18 06:02 BUN 39 mg/dL (6-20) H 09/29/18 06:02 Creatinine 1.7 mg/dL (0.6-1.2) H 09/29/18 06:02 Estimated GFR (MDRD) 39 (>89) L 09/29/18 06:02 Glucose 183 mg/dL (70-100) H 09/29/18 06:02 Lactic Acid 1.0 mmol/L (0.5-2.2) 09/26/18 18:15 Uric Acid 10.9 mg/dL (2.6-7.2) H 09/26/18 23:03 Calcium 8.0 mg/dL (8.5-10.3) L 09/29/18 06:02 Magnesium 2.0 mg/dL (1.7-2.8) 09/27/18 05:45 Total Bilirubin 1.1 mg/dL (0.2-1.0) H 09/27/18 05:45 AST 20 IU/L (10-42) 09/27/18 05:45 ALT 15 IU/L (10-60) 09/27/18 05:45 Alkaline Phosphatase 63 IU/L (42-121) 09/27/18 05:45 Troponin I < 0.04 ng/mL (<0.49) 09/27/18 05:45 C-Reactive Protein 20.9 mg/dL (0-1.0) H 09/26/18 16:30 B-Natriuretic Peptide 438 pg/mL (5-100) H 09/27/18 05:45 Total Protein 6.8 g/dL (6.7-8.2) 09/27/18 05:45 Albumin 3.3 g/dL (3.2-5.5) 09/27/18 05:45 Globulin 3.5 g/dL (2.1-4.2) 09/27/18 05:45 Albumin/Globulin Ratio 0.9 (1.0-2.2) L 09/27/18 05:45 Lipase 25 U/L (22-51) 09/26/18 16:30 Urine Color YELLOW 09/26/18 17:18 Urine Clarity CLEAR (CLEAR) 09/26/18 17:18 Urine pH 5.5 PH (5.0-7.5) 09/26/18 17:18 Ur Specific [place] 1.020 (1.002-1.030) 09/26/18 17:18 Urine Protein TRACE mg/dL (NEGATIVE) 09/26/18 17:18 Urine Glucose (UA) NEGATIVE mg/dL (NEGATIVE) 09/26/18 17:18 Urine Ketones NEGATIVE mg/dL (NEGATIVE) 09/26/18 17:18 Urine Occult Blood MODERATE (NEGATIVE) H 09/26/18 17:18 Urine Nitrite NEGATIVE (NEGATIVE) 09/26/18 17:18 Urine Bilirubin NEGATIVE (NEGATIVE) 09/26/18 17:18 Urine Urobilinogen 0.2 (NORMAL) E.U./dL (NORMAL) 09/26/18 17:18 Ur Leukocyte Esterase NEGATIVE (NEGATIVE) 09/26/18 17:18 Urine RBC 0-5 /HPF (0-5) 09/26/18 17:18 Urine WBC 0-3 /HPF (0-3) 09/26/18 17:18 Ur Squamous Epith Cells RARE Squamous (<= Few) 09/26/18 17:18 Urine Bacteria None Seen /HPF (None Seen) 09/26/18 17:18 Ur Microscopic Review INDICATED 09/26/18 17:18 Urine Culture Comments NOT INDICATED 09/26/18 17:18 Last Dose Date 09/28/18 09/28/18 17:20 Last Dose Time 0750 09/28/18 17:20 Vancomycin Trough 28.4 ug/mL (10.0-20.0) H* 09/28/18 17:20 ABX Reporting Has patient been on IV antibiotics over the past 48 hours?: Yes
[2018-09-29] MEDS: FLUCONAZOLE 100 MG TABLET PO SCH (14:36)
[2018-09-29] MEDS: CLINDAMYCIN 150 MG CAPSULE PO SCH ×2 (14:36→21:05)
[2018-09-29] MEDS: cephALEXin 250 MG CAPSULE PO SCH ×2 (14:36→17:16)
[2018-09-29 14:45] LABS: MAGNESIUM 2.4 mg/dL (1.7-2.8)
[2018-09-29] MEDS ORDERED: OXYMETAZOLINE NASAL SPRAY NAS PRN (15:24)
[2018-09-29] MEDS: PANTOPRAZOLE 40 MG TABLET PO SCH (17:16)
[2018-09-29] MEDS: ATORVASTATIN 10 MG TABLET PO SCH (21:05)
[2018-09-29] MEDS: FLUTICASONE NASAL SPRAY NAS PRN (21:06)
[2018-09-30] MEDS: SODIUM CHLORIDE FLUSH 0.9% 10 ML SYRINGE IVP SCH ×2 (01:20→05:53)
[2018-09-30] MEDS: cephALEXin 250 MG CAPSULE PO SCH ×2 (01:21→05:53)
[2018-09-30] MEDS: guaiFENesin/CODEINE 5 ML UDC PO PRN ×2 (04:58→22:12)
[2018-09-30 05:40] LABS: % IRON SATURATION 23 % (20-50); IRON 37 ug/dL (45-182); TOTAL IRON BINDING CAPACITY 161 ug/dL (250-450); TRANSFERRIN 115 mg/dL (180-329)
[2018-09-30] MEDS: methylPREDNISolone SUCCINATE 40 MG/ML VIAL IVP SCH ×3 (05:53→22:12)
[2018-09-30 05:59] LABS: FOLATE 4.5 ng/mL (5.90 - >24.8)
[2018-09-30] MEDS: LEVALBUTEROL 1.25 MG/3 ML NEB INH PRN ×2 (06:02→20:11)
[2018-09-30] MEDS: BUDESONIDE 0.5 MG/2 ML NEB INH SCH ×2 (06:02→20:11)
[2018-09-30] MEDS: ALLOPURINOL 100 MG TABLET PO SCH (08:26)
[2018-09-30] MEDS: FAMOTIDINE 20 MG TABLET PO SCH (08:26)
[2018-09-30] MEDS: APIXABAN 2.5 MG TABLET PO SCH ×2 (08:26→20:31)
[2018-09-30] MEDS: METOPROLOL SUCCINATE 50 MG TABLET PO SCH ×2 (08:26→20:31)
[2018-09-30] MEDS: guaiFENesin 600 MG TABLET PO SCH ×2 (08:26→20:31)
[2018-09-30] MEDS: CLINDAMYCIN 150 MG CAPSULE PO SCH (08:26)
[2018-09-30] MEDS: ACETAMINOPHEN 325 MG TABLET PO PRN (08:26)
[2018-09-30] MEDS: POLYETHYLENE GLYCOL 3350 17 GM PACKET PO SCH (08:27)
--- NOTE | 2018-09-30 08:47 | PROVIDER PROGRESS NOTE ---
Assessment/Plan - Problem List (1) Atrial fibrillation with RVR Assessment/Plan: With morning activity, and before his a.m. Metoprolol and Tikosyn were given, he again had afib with RVR, plus paroxysms of VTach. Will move the morning doses up to 8 a.m. (2) V-tach Assessment/Plan: The recheck of troponin was normal, Mg normal, K normal. I suspect he gets runs of VT due to the rapid rates, in Afib. B-helio dosing was doubled from qd to bid, just yesterday evening. Will move up the 9 a.m. doses to 8 a.m. If that alone is not sufficient, I will increase the dose further tomorrow. The patient asked me to contact his Clinical Trial Data Manager, Dr Yemi Archer, which I will do tomorrow (today is Monday, offices are closed). (3) Acute exacerbation of COPD with asthma Assessment/Plan: Continue scheduled nebs and iv steroids. (4) Bronchitis Assessment/Plan: Sputum has yeast and oral christian and also grew Acinetobacter Haemolyticus and sensitivities are available. Will change Keflex to Levafloxicin 750 mg po q 48 hr, to cover the Acinetobacter. Since Levoflaxacin plus Diflucan can prolong QT interval, will use the Diflucan for only 3 days total: started yesterday, today and Mon dosing. Continue Mucinex and hydration for expectoration. (5) Cellulitis Qualifiers: Site of cellulitis: extremity Site of cellulitis of extremity: lower extremity Laterality: right Qualified Code(s): L03.115 - Cellulitis of right lower limb Assessment/Plan: Redness resolved and swelling resolved. No signs of DVT by Doppler. Levaquin dosing will cover skin organisms, therefore will stop Clindamycin. (6) Gout attack Qualifiers: Gout site: foot Laterality: left Assessment/Plan: No significant arterial atherosclerosis by Doppler, to explain foot pain. Continue Allopurinol. Colchicine was given for 2 days, then stopped. (7) Peripheral neuropathy Assessment/Plan: Arterial Doppler did not show significant atherosclerosis and venous Doppler was unremarkable. He will need further outpatient work up for his numbness. (8) Acute kidney injury superimposed on chronic kidney disease Assessment/Plan: His med doses are adjusted for renal dosing, with the help of Pharmacy. (9) Anemia Qualifiers: Anemia type: iron deficiency Assessment/Plan: Lab results show he is both Iron deficient and Folate deficient. Will start po Iron and Folate daily. I gave him results and he asked why he is deficient. I eplied most likely is his diet. He shared with me that his 4 mos ago and she was the chief business officer, and now his own meals are probably not proper. Will request a Certified Fire Investigator/Nutrition consult for teaching. (10) JIM on CPAP Assessment/Plan: Continue home CPAP unit used at night. (11) Hx of coronary artery disease Assessment/Plan: Continue B-helio, statin. (12) Hypokalemia Assessment/Plan: Resolved with replacement. - Current Meds Current Meds: Current Medications Generic Name Dose Route Start Last Admin Trade Name Freq PRN Reason Stop Dose Admin Acetaminophen 650 mg 09/26/18 19:37 09/30/18 08:26 Tylenol PO 650 mg Q4HR PRN Administration Pain or Fever > 38C (100.4F) Allopurinol 200 mg 09/28/18 09:00 09/30/18 08:26 Zyloprim PO 200 mg DAILY MARVIN Administration Apixaban 2.5 mg 09/26/18 21:00 09/30/18 08:26 Eliquis PO 2.5 mg BID MARVIN Administration Atorvastatin Calcium 10 mg 09/26/18 21:00 09/29/18 21:05 Lipitor PO 10 mg QPM MARVIN Administration Budesonide 0.5 mg 09/27/18 19:00 09/30/18 06:02 Pulmicort INH 0.5 mg RTBID MARVIN Administration Clindamycin HCl 300 mg 09/29/18 14:00 09/30/18 08:26 Cleocin PO 300 mg BID MARVIN Administration Famotidine 20 mg 09/26/18 21:00 09/30/18 08:26 Pepcid PO 20 mg DAILY MARVIN Administration Fluconazole 100 mg 09/29/18 15:00 09/29/18 14:36 Diflucan PO 10/02/18 07:00 100 mg 1500 MARVIN Administration Fluticasone Propionate 1 sprays 09/26/18 17:59 09/29/18 21:06 Flonase KRISHNA 1 spr BID PRN Administration Allergy Symptoms Guaifenesin 600 mg 09/26/18 21:00 09/30/18 08:26 Mucinex PO 600 mg BID MARVIN Administration Guaifenesin/Codeine Phosphate 5 ml 09/26/18 17:59 09/30/18 04:58 Robitussin Ac PO 5 ml Q6HR PRN Administration Cough Levalbuterol HCl 1.25 mg 09/28/18 15:39 09/30/18 06:02 Xopenex INH 1.25 mg Q4H PRN Administration Shortness of Air/Wheezing Methylprednisolone 40 mg 09/28/18 16:00 09/30/18 05:53 Solu-Medrol (40mg Vial) IVP 40 mg TID MARVIN Administration Metoprolol Succinate 50 mg 09/29/18 21:00 09/30/18 08:26 Toprol Xl PO 50 mg BID MARVIN Administration Morphine Sulfate 2 mg 09/28/18 12:31 09/29/18 09:34 Morphine IVP 2 mg Q2HR PRN Administration Dyspnea Pantoprazole Sodium 40 mg 09/27/18 17:00 09/29/18 17:16 Protonix PO 40 mg QDDINNER MARVIN Administration (Dofetilide [Tikosyn 1 each 09/27/18 09:00 09/30/18 08:27 ] 0.125mg Capsule) PO 1 each BID MARVIN Administration Polyethylene Glycol 17 gm 09/27/18 09:00 09/30/18 08:27 Miralax PO Not Given DAILY MARVIN Sodium Chloride 10 ml 09/26/18 17:44 09/29/18 14:36 Normal Saline Flush 0.9% IVP 10 ml PRN PRN Administration NEEDED PER PROVIDER ORDERS Sodium Chloride 10 ml 09/27/18 01:00 09/30/18 05:53 Normal Saline Flush 0.9% IVP 10 ml 0100,0900,1700 MARVIN Administration - Lab Result Fish Bone Diagrams: 09/29/18 06:02 09/29/18 14:25 - Additional Planning My Orders: My Active Orders 09/29/18 14:00 Clindamycin [Cleocin] 300 mg PO BID 09/29/18 15:00 Fluconazole [Diflucan] 100 mg PO 1500 09/29/18 15:24 Oxymetazoline [Afrin] 2 sprays KRISHNA BID PRN 09/29/18 21:00 Metoprolol Succinate [Toprol Xl] 50 mg PO BID 09/30/18 05:00 Duplex Ext Veins Bilateral [US] Routine Duplex Lwr Ext Arterial Bilat [US] Routine 09/30/18 09:00 Folic Acid 1 mg PO DAILY levoFLOXacin [Levaquin] 750 mg PO DAILY 10/01/18 05:00 BMP - BASIC METABOLIC PANEL [CHEM] DAILYLAB CBC - COMP BLD CT W/AUTO DIFF [HEME] DAILYLAB 10/01/18 07:30 VANCOMYCIN TROUGH [CHEM] Timed Subjective - Subjective Patient Reports: Feeling Better, Other (Cough is now productive and he can clear his airway better.) Nursing Reports: Other (Less pain in legs and feet with standing, was able to take a shower with help of WELLNESS MANAGER.) Objective Vital Signs: Vital Signs - 24 hr 09/29/18 09/29/18 09/29/18 13:00 13:26 15:16 Temperature 36.3 C L 36.4 C L Heart Rate Heart Rate [ 90 Activity] Heart Rate [ 77 74 Brachial] Respiratory 20 22 Rate Respiratory 12 Rate [With Activity] Blood Pressure 133/73 H [Activity] Blood Pressure [Left Brachial artery] Blood Pressure 121/65 129/75 [Right Brachial artery] O2 Saturation 95 96 O2 Saturation [ 96 With Activity] 09/29/18 09/29/18 09/30/18 19:01 20:03 00:34 Temperature 36.4 C L 36.6 C Heart Rate 82 Heart Rate [ Activity] Heart Rate [ 85 74 Brachial] Respiratory 16 24 18 Rate Respiratory Rate [With Activity] Blood Pressure [Activity] Blood Pressure [Left Brachial artery] Blood Pressure 131/69 H 114/75 [Right Brachial artery] O2 Saturation 94 96 O2 Saturation [ With Activity] 09/30/18 09/30/18 09/30/18 05:00 06:03 07:57 Temperature 36.5 C 36.5 C Heart Rate 73 Heart Rate [ Activity] Heart Rate [ 75 98 Brachial] Respiratory 20 22 20 Rate Respiratory Rate [With Activity] Blood Pressure [Activity] Blood Pressure 144/83 H [Left Brachial artery] Blood Pressure 125/80 [Right Brachial artery] O2 Saturation 95 95 O2 Saturation [ With Activity] Oxygen O2 Source [With Activity] Room air O2 Source Room air I&O (Last 24 Hrs): Intake and Output Totals x24h 09/28/18 09/29/18 09/30/18 23:59 23:59 23:59 Intake Total 3080 2890 Output Total 1100 1050 725 Balance 1980 1840 -725 General: Alert, Oriented x3 HEENT: Mucous membr. moist/pink Neck: Supple, No JVD Neuro: Non Focal Cardiovascular: No murmurs Respiratory: No respiratory distress Abdomen: Soft, Other (Obese with pannus) Extremities: No edema - Results Results: Laboratory Results WBC 9.6 x10^3/uL (4.8-10.8) 09/29/18 06:02 RBC 3.54 10^6/uL (4.70-6.10) L 09/29/18 06:02 Hgb 10.3 g/dL (14.0-18.0) L 09/29/18 06:02 Hct 31.7 % (42.0-52.0) L 09/29/18 06:02 MCV 89.6 fL (80.0-94.0) 09/29/18 06:02 MCH 29.1 pg (27.0-31.0) 09/29/18 06:02 MCHC 32.4 g/dL (32.0-36.0) 09/29/18 06:02 RDW 15.4 % (12.0-15.0) H 09/29/18 06:02 Plt Count 252 10^3/uL (130-450) 09/29/18 06:02 MPV 8.6 fL (7.4-11.4) 09/29/18 06:02 Neut # (Auto) 9.1 10^3/uL (1.5-6.6) H 09/29/18 06:02 Lymph # (Auto) 0.2 10^3/uL (1.5-3.5) L 09/29/18 06:02 [place] # (Auto) 0.3 10^3/uL (0.0-1.0) 09/29/18 06:02 Eos # (Auto) 0.0 10^3/uL (0.0-0.7) 09/29/18 06:02 Baso # (Auto) 0.0 10^3/uL (0.0-0.1) 09/29/18 06:02 Absolute Nucleated RBC 0.00 x10^3/uL 09/29/18 06:02 Nucleated RBC % 0.0 /100WBC 09/29/18 06:02 ESR 49 mm/Hr (0-20) H 09/27/18 05:45 Sodium 137 mmol/L (135-145) 09/29/18 06:02 Potassium 3.7 mmol/L (3.5-5.0) 09/29/18 14:25 Chloride 99 mmol/L (101-111) L 09/29/18 06:02 Carbon Dioxide 25 mmol/L (21-32) 09/29/18 06:02 Anion Gap 13.0 (6-13) 09/29/18 06:02 BUN 39 mg/dL (6-20) H 09/29/18 06:02 Creatinine 1.7 mg/dL (0.6-1.2) H 09/29/18 06:02 Estimated GFR (MDRD) 39 (>89) L 09/29/18 06:02 Glucose 183 mg/dL (70-100) H 09/29/18 06:02 Lactic Acid 1.0 mmol/L (0.5-2.2) 09/26/18 18:15 Uric Acid 10.9 mg/dL (2.6-7.2) H 09/26/18 23:03 Calcium 8.0 mg/dL (8.5-10.3) L 09/29/18 06:02 Magnesium 2.4 mg/dL (1.7-2.8) 09/29/18 14:25 Iron 37 ug/dL (45-182) L 09/30/18 04:46 TIBC 161 ug/dL (250-450) L 09/30/18 04:46 % Saturation 23 % (20-50) 09/30/18 04:46 Transferrin 115 mg/dL (180-329) L 09/30/18 04:46 Total Bilirubin 1.1 mg/dL (0.2-1.0) H 09/27/18 05:45 AST 20 IU/L (10-42) 09/27/18 05:45 ALT 15 IU/L (10-60) 09/27/18 05:45 Alkaline Phosphatase 63 IU/L (42-121) 09/27/18 05:45 Troponin I < 0.04 ng/mL (<0.49) 09/29/18 14:25 C-Reactive Protein 20.9 mg/dL (0-1.0) H 09/26/18 16:30 B-Natriuretic Peptide 438 pg/mL (5-100) H 09/27/18 05:45 Total Protein 6.8 g/dL (6.7-8.2) 09/27/18 05:45 Albumin 3.3 g/dL (3.2-5.5) 09/27/18 05:45 Globulin 3.5 g/dL (2.1-4.2) 09/27/18 05:45 Albumin/Globulin Ratio 0.9 (1.0-2.2) L 09/27/18 05:45 Lipase 25 U/L (22-51) 09/26/18 16:30 Vitamin B12 194 pg/mL (180-914) 09/30/18 04:46 Folate 4.50 ng/mL (5.90 - >24.8) L 09/30/18 04:46 Urine Color YELLOW 09/26/18 17:18 Urine Clarity CLEAR (CLEAR) 09/26/18 17:18 Urine pH 5.5 PH (5.0-7.5) 09/26/18 17:18 Ur Specific [place] 1.020 (1.002-1.030) 09/26/18 17:18 Urine Protein TRACE mg/dL (NEGATIVE) 09/26/18 17:18 Urine Glucose (UA) NEGATIVE mg/dL (NEGATIVE) 09/26/18 17:18 Urine Ketones NEGATIVE mg/dL (NEGATIVE) 09/26/18 17:18 Urine Occult Blood MODERATE (NEGATIVE) H 09/26/18 17:18 Urine Nitrite NEGATIVE (NEGATIVE) 09/26/18 17:18 Urine Bilirubin NEGATIVE (NEGATIVE) 09/26/18 17:18 Urine Urobilinogen 0.2 (NORMAL) E.U./dL (NORMAL) 09/26/18 17:18 Ur Leukocyte Esterase NEGATIVE (NEGATIVE) 09/26/18 17:18 Urine RBC 0-5 /HPF (0-5) 09/26/18 17:18 Urine WBC 0-3 /HPF (0-3) 09/26/18 17:18 Ur Squamous Epith Cells RARE Squamous (<= Few) 09/26/18 17:18 Urine Bacteria None Seen /HPF (None Seen) 09/26/18 17:18 Ur Microscopic Review INDICATED 09/26/18 17:18 Urine Culture Comments NOT INDICATED 09/26/18 17:18 Last Dose Date 09/28/18 09/28/18 17:20 Last Dose Time 0750 09/28/18 17:20 Vancomycin Trough 28.4 ug/mL (10.0-20.0) H* 09/28/18 17:20
[2018-09-30] MEDS ORDERED: levoFLOXacin 250 MG TABLET PO SCH (09:00)
[2018-09-30] MEDS: levoFLOXacin 250 MG TABLET PO SCH (09:43)
[2018-09-30] MEDS: FOLIC ACID 1 MG TABLET PO SCH (09:43)
--- NOTE | 2018-09-30 10:20 | Ultrasound Report ---
Reason: leg edema and pain Procedure Date: 09/30/2018 Accession Number: [id number] / [id number] Procedure: US - Duplex Ext Veins Bilateral CPT Code: FULL RESULT: EXAM: BILATERAL LOWER EXTREMITY VENOUS ULTRASOUND EXAM DATE: 09/30/2018 05:08 AM. CLINICAL HISTORY: Leg edema and pain. COMPARISON: DUPLEX EXT VEINS RIGHT 07/27/2016 5:50 PM. TECHNIQUE: Real-time sonographic vascular imaging was performed by the baby doctor through the lower extremities utilizing both color-flow and Doppler spectral analysis. Multiple computer help desk representative static images were saved for review. FINDINGS: Right: Common Femoral Vein (CFV): Normal. CFV-GSV Junction: Normal. Profunda Femoral Vein (PFV): Normal. Femoral Vein (FV) Prox: Normal. Femoral Vein (FV) Mid: Normal. Femoral Vein (FV) Dist: Normal. Popliteal Vein: Normal. Posterior Tibial Veins: Normal. Peroneal Veins: Normal. Left: Common Femoral Vein (CFV): Normal. CFV-GSV Junction: Normal. Profunda Femoral Vein (PFV): Normal. Femoral Vein (FV) Prox: Normal. Femoral Vein (FV) Mid: Normal. Femoral Vein (FV) Dist: Normal. Popliteal Vein: Normal. Posterior Tibial Veins: Normal. Peroneal Veins: Normal. Other: Bilateral calf edema is noted. Study is limited by body habitus. IMPRESSION: No evidence for deep venous thrombosis bilaterally. Bilateral calf edema. Study limited by body habitus. [facility]
[2018-09-30] MEDS: FERROUS GLUCONATE 324 MG TABLET PO SCH (10:27)
--- NOTE | 2018-09-30 11:29 | Ultrasound Report ---
Reason: foot pain bilat Procedure Date: 09/30/2018 Accession Number: [id number] / [id number] Procedure: US - Duplex Lwr Ext Arterial Bilat CPT Code: FULL RESULT: EXAM: Bilateral Lower Extremity Arterial Doppler Ultrasound EXAM DATE: 09/30/2018 05:36 AM. CLINICAL HISTORY: Foot pain, bilateral. COMPARISON: None. TECHNIQUE: Real-time sonographic vascular imaging was performed by the ice cream dispenser, utilizing color-flow, Doppler flow, and spectral analysis. Multiple passenger service representative static images were saved for review. FINDINGS: Right Leg: AWS DEVELOPER: PSV 69.4 cm/sec. Biphasic waveform. PSFA: PSV 81.1 cm/sec. Triphasic waveform. MSFA: PSV 68.7 cm/sec. Biphasic waveform. DSFA: PSV 82.4 cm/sec. Biphasic waveform. PFA: PSV 34 cm/sec. Monophasic waveform. POP: PSV 86.4 cm/sec. Biphasic waveform. CECILIA: PSV 23.4 cm/sec. Monophasic waveform. PHYSICAL THERAPY MANAGER: PSV 93.2 cm/sec. Monophasic/biphasic waveform. PER: PSV 46 cm/sec. Monophasic waveform. DPA: PSV 129 cm/sec. Biphasic waveform. Left Leg: AWS DEVELOPER: PSV 85 cm/sec. Biphasic waveform. PSFA: PSV 82.4 cm/sec. Biphasic waveform. MSFA: PSV 90.3 cm/sec. Biphasic waveform. DSFA: PSV 87.3 cm/sec. Monophasic waveform. PFA: PSV 50 cm/sec. Biphasic waveform. POP: PSV 72.6 cm/sec. Monophasic waveform. CECILIA: PSV 123 cm/sec. Biphasic waveform. PHYSICAL THERAPY MANAGER: PSV 86.4 cm/sec. Monophasic waveform. PER: PSV 64.8 cm/sec. Monophasic waveform. DPA: PSV 48 cm/sec. Biphasic waveform. There is subcutaneous edema in the calves bilaterally. IMPRESSION: 1. No hemodynamically significant focal stenosis is identified. 2. 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 RADIA
[2018-09-30] MEDS: FLUCONAZOLE 100 MG TABLET PO SCH (16:01)
[2018-09-30] MEDS: PANTOPRAZOLE 40 MG TABLET PO SCH (16:01)
[2018-09-30] MEDS ORDERED: PATIENT OWN MED PO SCH (20:00)
[2018-09-30] MEDS: ATORVASTATIN 10 MG TABLET PO SCH (20:31)
[2018-09-30] MEDS: FLUTICASONE NASAL SPRAY NAS PRN (20:33)
[2018-09-30] MEDS: SODIUM CHLORIDE FLUSH 0.9% 10 ML SYRINGE IVP PRN (22:12)
[2018-10-01] MEDS: methylPREDNISolone SUCCINATE 40 MG/ML VIAL IVP SCH ×3 (06:33→21:26)
[2018-10-01] MEDS: SODIUM CHLORIDE FLUSH 0.9% 10 ML SYRINGE IVP SCH ×3 (06:33→23:53)
[2018-10-01 06:53] LABS: CALCIUM 8.4 mg/dL (8.5-10.3); CREATININE 1.4 mg/dL (0.6-1.2)
[2018-10-01 07:01] LABS: HGB - HEMOGLOBIN 10.9 g/dL (14.0-18.0); LYMPHOCYTES # (AUTO) 0.4 10^3/uL (1.5-3.5); LYMPHOCYTES % (AUTO) 5.1 %; MEAN CORPUSCULAR HEMOGLOBIN 28.5 pg (27.0-31.0); MEAN CORPUSCULAR VOLUME 89.2 fL (80.0-94.0); MEAN PLATELET VOLUME 8.8 fL (7.4-11.4); MONOCYTES # (AUTO) 0.3 10^3/uL (0.0-1.0); MONOCYTES % (AUTO) 4.1 %; NEUTROPHILS # (AUTO) 6.5 10^3/uL (1.5-6.6); NEUTROPHILS % (AUTO) 90.8 %; PLT - PLATELET COUNT 315 10^3/uL (130-450); RED CELL DISTRIBUTION WIDTH 15.6 % (12.0-15.0); WHITE BLOOD COUNT 7.2 x10^3/uL (4.8-10.8)
[2018-10-01 07:39] LABS: PLATELET ESTIMATE, MANUAL NORMAL (130-450,000) (NORMAL); PLATELET MORPHOLOGY 1+ GIANT PLATELETS (NORMAL)
[2018-10-01 07:40] LABS: RBC MORPHOLOGY (MULTIPLE) 1+ ANISOCYTOSIS (NORMAL)
[2018-10-01] MEDS: FLUTICASONE NASAL SPRAY NAS PRN (08:24)
[2018-10-01] MEDS: FOLIC ACID 1 MG TABLET PO SCH (08:25)
[2018-10-01] MEDS: FERROUS GLUCONATE 324 MG TABLET PO SCH (08:25)
[2018-10-01] MEDS: METOPROLOL SUCCINATE 50 MG TABLET PO SCH ×2 (08:28→20:56)
[2018-10-01] MEDS: FAMOTIDINE 20 MG TABLET PO SCH (08:28)
[2018-10-01] MEDS: ALLOPURINOL 100 MG TABLET PO SCH (08:28)
[2018-10-01] MEDS: guaiFENesin 600 MG TABLET PO SCH ×2 (08:28→20:56)
[2018-10-01] MEDS: APIXABAN 2.5 MG TABLET PO SCH ×2 (08:28→20:56)
[2018-10-01] MEDS: POLYETHYLENE GLYCOL 3350 17 GM PACKET PO SCH (08:36)
[2018-10-01] MEDS: BUDESONIDE 0.5 MG/2 ML NEB INH SCH ×2 (09:27→20:29)
[2018-10-01] MEDS: LEVALBUTEROL 1.25 MG/3 ML NEB INH PRN ×2 (09:28→20:29)
[2018-10-01] MEDS ORDERED: CYANOCOBALAMIN 1,000 MCG/ML VIAL IM ONE (10:52)
--- NOTE | 2018-10-01 10:56 | PROVIDER PROGRESS NOTE ---
Assessment/Plan - Problem List (1) Atrial fibrillation with RVR Assessment/Plan: Today was the first day he did not go into Afib with RVR during a.m. activity. Yesterday his Tikosyn and a.m. Metoprolol were moved earlier to dose, and 2 days ago I added the bedtime Metoprolol to make it bid. He remains on his Eliquis, dosed for renal failuure. He requests that a copy of [facility] summary go to his Associate Veterinarian: Dr Yemi Noriega in [place] (office phone, if needed: [phone]). (2) V-tach Assessment/Plan: Resolved (3) Acute exacerbation of COPD with asthma Assessment/Plan: Still has cough and SOB after walking and toileting. Yesterday was the first day of po antibiotic use that was able to cover his bacteria, grown in sputum culture. (4) Bronchitis Assessment/Plan: Yesterday was the first day of po antibiotic use that was able to cover his bacteria, grown in sputum culture. So he said he only started to feel better today. Possible DC tomorrow. (5) Cellulitis Qualifiers: Site of cellulitis: extremity Site of cellulitis of extremity: lower extremity Laterality: right Qualified Code(s): L03.115 - Cellulitis of right lower limb Assessment/Plan: Improved after iv antibiotics using Vanco and now transitioned to Levaquin. No further swelling, redness resolved several days ago. (6) Gout attack Qualifiers: Gout site: foot Laterality: left Assessment/Plan: Less pain each day and able to ambulate. Colchicine was dosed for 2 days, now on Allopurinol. PT to advise if he needs a SNF or able to be [facility] home and will he need more PT (Home Health PT?) (7) Peripheral neuropathy Assessment/Plan: Venous and Arterial Dopplers did not show significant venous insufficiency or any ischemia, to explain foot pain. He was told that he would need further evaluation of foot numbness and pain, managed by his PCP. (8) Acute kidney injury superimposed on chronic kidney disease Assessment/Plan: Slow improvement daily while here. All meds are dosed renally. (9) Anemia Qualifiers: Anemia type: iron deficiency Assessment/Plan: Iron and Folate were low and replacement started orally yesterday. Today the Rand Cementer also recommended a B12 im dose for relatively low serum B12. (10) JIM on CPAP Assessment/Plan: Continue home CPAP devise for sleep. (11) Hx of coronary artery disease Assessment/Plan: Stable, his home meds have been continued. (12) Hypokalemia Assessment/Plan: Replaced. Follow electrolytes daily. (13) Acute exacerbation of CHF (congestive heart failure) Qualifiers: Heart failure type: unspecified Qualified Code(s): I50.9 - Heart failure, unspecified Assessment/Plan: THIS WAS RULED OUT AND NOT FELT TO BE THE CAUSE of the SOB and wheezing. - Current Meds Current Meds: Current Medications Generic Name Dose Route Start Last Admin Trade Name Freq PRN Reason Stop Dose Admin Acetaminophen 650 mg 09/26/18 19:37 09/30/18 08:26 Tylenol PO 650 mg Q4HR PRN Administration Pain or Fever > 38C (100.4F) Allopurinol 200 mg 09/28/18 09:00 10/01/18 08:28 Zyloprim PO 200 mg DAILY MARVIN Administration Apixaban 2.5 mg 09/26/18 21:00 10/01/18 08:28 Eliquis PO 2.5 mg BID MARVIN Administration Atorvastatin Calcium 10 mg 09/26/18 21:00 09/30/18 20:31 Lipitor PO 10 mg QPM MARVIN Administration Budesonide 0.5 mg 09/27/18 19:00 10/01/18 09:27 Pulmicort INH 0.5 mg RTBID MARVIN Administration Famotidine 20 mg 09/26/18 21:00 10/01/18 08:28 Pepcid PO 20 mg DAILY MARVIN Administration Ferrous Gluconate 324 mg 09/30/18 10:00 10/01/18 08:25 Fergon PO 324 mg DAILYWM MAVRIN Administration Fluconazole 100 mg 09/29/18 15:00 09/30/18 16:01 Diflucan PO 10/02/18 07:00 100 mg 1500 MARVIN Administration Fluticasone Propionate 1 sprays 09/26/18 17:59 10/01/18 08:24 Flonase KRISHNA 1 spr BID PRN Administration Allergy Symptoms Folic Acid 1 mg 09/30/18 09:00 10/01/18 08:25 PO 1 mg DAILY MARVIN Administration Guaifenesin 600 mg 09/26/18 21:00 10/01/18 08:28 Mucinex PO 600 mg BID MARVIN Administration Guaifenesin/Codeine Phosphate 5 ml 09/26/18 17:59 09/30/18 22:12 Robitussin Ac PO 5 ml Q6HR PRN Administration Cough Levalbuterol HCl 1.25 mg 09/28/18 15:39 10/01/18 09:28 Xopenex INH 1.25 mg Q4H PRN Administration Shortness of Air/Wheezing Levofloxacin 750 mg 09/30/18 09:00 09/30/18 09:43 Levaquin PO 750 mg Q48H MARVIN Administration Methylprednisolone 40 mg 09/28/18 16:00 10/01/18 06:33 Solu-Medrol (40mg Vial) IVP 40 mg TID MARVIN Administration Metoprolol Succinate 50 mg 09/30/18 20:00 10/01/18 08:28 Toprol Xl PO 50 mg MARVIN Administration Morphine Sulfate 2 mg 09/28/18 12:31 09/29/18 09:34 Morphine IVP 2 mg Q2HR PRN Administration Dyspnea Pantoprazole Sodium 40 mg 09/27/18 17:00 09/30/18 16:01 Protonix PO 40 mg QDDINNER MARVIN Administration (Dofetilide [Tikosyn 1 each 09/30/18 20:00 10/01/18 08:29 ] 0.125mg Capsule) PO 1 each MARVIN Administration Polyethylene Glycol 17 gm 09/27/18 09:00 10/01/18 08:36 Miralax PO 17 gm DAILY MARVIN Administration Sodium Chloride 10 ml 09/26/18 17:44 09/30/18 22:12 Normal Saline Flush 0.9% IVP 10 ml PRN PRN Administration NEEDED PER PROVIDER ORDERS Sodium Chloride 10 ml 09/27/18 01:00 10/01/18 06:33 Normal Saline Flush 0.9% IVP 10 ml 0100,0900,1700 MARVIN Administration - Lab Result Fish Bone Diagrams: 10/01/18 06:13 10/01/18 06:13 - Additional Planning My Orders: My Active Orders 09/30/18 10:00 Ferrous Gluconate [Fergon] 324 mg PO DAILYWM 09/30/18 20:00 Metoprolol Succinate [Toprol Xl] 50 mg PO Patient Own Med [Patient Own Medication] 1 each PO 10/01/18 10:52 Cyanocobalamin [Vitamin B-12] 1,000 mcg IM ONCE ONE Objective Vital Signs: Vital Signs - 24 hr 09/30/18 09/30/18 09/30/18 13:00 15:37 20:00 Temperature 36.4 C L 36.3 C L Heart Rate 68 Heart Rate [ 64 67 Brachial] Respiratory 20 20 18 Rate Blood Pressure 115/63 126/71 [Right Brachial artery] O2 Saturation 98 98 09/30/18 09/30/18 09/30/18 20:29 21:05 23:46 Temperature 35.9 C L 36.5 C 36.9 C Heart Rate Heart Rate [ 71 73 70 Brachial] Respiratory 18 20 18 Rate Blood Pressure 124/73 128/67 133/81 H [Right Brachial artery] O2 Saturation 98 97 97 10/01/18 10/01/18 10/01/18 05:45 07:50 09:29 Temperature 36.5 C 36.4 C L Heart Rate 62 Heart Rate [ 70 64 Brachial] Respiratory 18 18 18 Rate Blood Pressure 118/77 139/77 H [Right Brachial artery] O2 Saturation 97 97 Oxygen O2 Source [With Activity] Room air O2 Source Room air I&O (Last 24 Hrs): Intake and Output Totals x24h 09/29/18 09/30/18 10/01/18 23:59 23:59 23:59 Intake Total 2890 2170 690 Output Total 1050 1675 900 Balance 1840 495 -210 General: Alert, Oriented x3 HEENT: Mucous membr. moist/pink Neck: Supple Neuro: Non Focal Cardiovascular: Regular rate, No murmurs Respiratory: No respiratory distress, Other (Still has frequent coughing spells and gets facial redness.) Abdomen: Soft, Other (Obese with pannus.) Extremities: No edema, Other (Numbness of plantar surfaces) - Results Results: Laboratory Results WBC 7.2 x10^3/uL (4.8-10.8) 10/01/18 06:13 RBC 3.80 10^6/uL (4.70-6.10) L 10/01/18 06:13 Hgb 10.9 g/dL (14.0-18.0) L 10/01/18 06:13 Hct 33.9 % (42.0-52.0) L 10/01/18 06:13 MCV 89.2 fL (80.0-94.0) 10/01/18 06:13 MCH 28.5 pg (27.0-31.0) 10/01/18 06:13 MCHC 32.0 g/dL (32.0-36.0) 10/01/18 06:13 RDW 15.6 % (12.0-15.0) H 10/01/18 06:13 Plt Count 315 10^3/uL (130-450) 10/01/18 06:13 MPV 8.8 fL (7.4-11.4) 10/01/18 06:13 Neut # (Auto) 6.5 10^3/uL (1.5-6.6) 10/01/18 06:13 Lymph # (Auto) 0.4 10^3/uL (1.5-3.5) L 10/01/18 06:13 Upson # (Auto) 0.3 10^3/uL (0.0-1.0) 10/01/18 06:13 Eos # (Auto) 0.0 10^3/uL (0.0-0.7) 10/01/18 06:13 Baso # (Auto) 0.0 10^3/uL (0.0-0.1) 10/01/18 06:13 Absolute Nucleated RBC 0.00 x10^3/uL 10/01/18 06:13 Nucleated RBC % 0.0 /100WBC 10/01/18 06:13 Manual Slide Review Indicated 10/01/18 06:13 WBC Morphology NORMAL APPEARANCE (NORMAL) 10/01/18 06:13 Platelet Estimate NORMAL (130-450,000) (NORMAL) 10/01/18 06:13 Platelet Morphology 1+ GIANT PLATELETS (NORMAL) 10/01/18 06:13 RBC Morph Micro Appear 1+ ANISOCYTOSIS (NORMAL) 10/01/18 06:13 ESR 49 mm/Hr (0-20) H 09/27/18 05:45 Sodium 137 mmol/L (135-145) 10/01/18 06:13 Potassium 3.8 mmol/L (3.5-5.0) 10/01/18 06:13 Chloride 99 mmol/L (101-111) L 10/01/18 06:13 Carbon Dioxide 26 mmol/L (21-32) 10/01/18 06:13 Anion Gap 12.0 (6-13) 10/01/18 06:13 BUN 53 mg/dL (6-20) H 10/01/18 06:13 Creatinine 1.4 mg/dL (0.6-1.2) H 10/01/18 06:13 Estimated GFR (MDRD) 48 (>89) L 10/01/18 06:13 Glucose 145 mg/dL (70-100) H 10/01/18 06:13 Lactic Acid 1.0 mmol/L (0.5-2.2) 09/26/18 18:15 Uric Acid 10.9 mg/dL (2.6-7.2) H 09/26/18 23:03 Calcium 8.4 mg/dL (8.5-10.3) L 10/01/18 06:13 Magnesium 2.4 mg/dL (1.7-2.8) 09/29/18 14:25 Iron 37 ug/dL (45-182) L 09/30/18 04:46 TIBC 161 ug/dL (250-450) L 09/30/18 04:46 % Saturation 23 % (20-50) 09/30/18 04:46 Transferrin 115 mg/dL (180-329) L 09/30/18 04:46 Total Bilirubin 1.1 mg/dL (0.2-1.0) H 09/27/18 05:45 AST 20 IU/L (10-42) 09/27/18 05:45 ALT 15 IU/L (10-60) 09/27/18 05:45 Alkaline Phosphatase 63 IU/L (42-121) 09/27/18 05:45 Troponin I < 0.04 ng/mL (<0.49) 09/29/18 14:25 C-Reactive Protein 20.9 mg/dL (0-1.0) H 09/26/18 16:30 B-Natriuretic Peptide 438 pg/mL (5-100) H 09/27/18 05:45 Total Protein 6.8 g/dL (6.7-8.2) 09/27/18 05:45 Albumin 3.3 g/dL (3.2-5.5) 09/27/18 05:45 Globulin 3.5 g/dL (2.1-4.2) 09/27/18 05:45 Albumin/Globulin Ratio 0.9 (1.0-2.2) L 09/27/18 05:45 Lipase 25 U/L (22-51) 09/26/18 16:30 Vitamin B12 194 pg/mL (180-914) 09/30/18 04:46 Folate 4.50 ng/mL (5.90 - >24.8) L 09/30/18 04:46 Urine Color YELLOW 09/26/18 17:18 Urine Clarity CLEAR (CLEAR) 09/26/18 17:18 Urine pH 5.5 PH (5.0-7.5) 09/26/18 17:18 Ur Specific [place] 1.020 (1.002-1.030) 09/26/18 17:18 Urine Protein TRACE mg/dL (NEGATIVE) 09/26/18 17:18 Urine Glucose (UA) NEGATIVE mg/dL (NEGATIVE) 09/26/18 17:18 Urine Ketones NEGATIVE mg/dL (NEGATIVE) 09/26/18 17:18 Urine Occult Blood MODERATE (NEGATIVE) H 09/26/18 17:18 Urine Nitrite NEGATIVE (NEGATIVE) 09/26/18 17:18 Urine Bilirubin NEGATIVE (NEGATIVE) 09/26/18 17:18 Urine Urobilinogen 0.2 (NORMAL) E.U./dL (NORMAL) 09/26/18 17:18 Ur Leukocyte Esterase NEGATIVE (NEGATIVE) 09/26/18 17:18 Urine RBC 0-5 /HPF (0-5) 09/26/18 17:18 Urine WBC 0-3 /HPF (0-3) 09/26/18 17:18 Ur Squamous Epith Cells RARE Squamous (<= Few) 09/26/18 17:18 Urine Bacteria None Seen /HPF (None Seen) 09/26/18 17:18 Ur Microscopic Review INDICATED 09/26/18 17:18 Urine Culture Comments NOT INDICATED 09/26/18 17:18 Last Dose Date 09/28/18 09/28/18 17:20 Last Dose Time 0750 09/28/18 17:20 Vancomycin Trough 28.4 ug/mL (10.0-20.0) H* 09/28/18 17:20
[2018-10-01] MEDS: FLUCONAZOLE 100 MG TABLET PO SCH (14:39)
[2018-10-01] MEDS: PANTOPRAZOLE 40 MG TABLET PO SCH (18:34)
[2018-10-01] MEDS: ATORVASTATIN 10 MG TABLET PO SCH (20:56)
[2018-10-01] MEDS: SODIUM CHLORIDE FLUSH 0.9% 10 ML SYRINGE IVP PRN (21:26)
[2018-10-01] MEDS ORDERED: diphenhydrAMINE 25 MG CAPSULE PO PRN (23:46)
[2018-10-02] MEDS: SODIUM CHLORIDE FLUSH 0.9% 10 ML SYRINGE IVP PRN ×2 (05:48→14:02)
[2018-10-02] MEDS: methylPREDNISolone SUCCINATE 40 MG/ML VIAL IVP SCH ×2 (05:48→14:02)
[2018-10-02] MEDS: BUDESONIDE 0.5 MG/2 ML NEB INH SCH (08:38)
--- NOTE | 2018-10-02 09:10 | Discharge Plan ---
Discharge Plan Disposition: Home Health Service Condition: Stable Prescriptions: Allopurinol [Zyloprim] 200 mg PO DAILY #30 tablet Fluticasone/Salmeterol [Advair 100-50 Diskus] 1 each IH BID #1 blst.w.dev Folic Acid 1 mg PO DAILY #30 tablet Levofloxacin [Levaquin] 750 mg PO Q2D #3 tablet Magnesium Oxide [Magnesium] 400 mg PO DAILY #100 capsule Methylprednisolone [Medrol] 4 mg PO DAILY #1 tab.ds.pk Multivitamin with Iron [One Daily with Iron] 1 each PO DAILY #100 tablet Diet: Low Sodium Activity Restrictions: Activity as Tolerated Shower Restrictions: No Driving Restrictions: No Assistance Devices: Walker Instruction Topics: Uric Acid Blood, Heart Failure, Heart Failure Warning Signs, Chronic Venous Insufficiency, Gout, Heart Failure Coping, Gout Eat Prevent Additional Instructions or Follow Up instructions: You were admitted to the hospital because you were having gradually worsening swollen legs and feet with shortness of breath. Both of those problems were getting worse. Your own doctor had already tried you on Lasix and compression stockings and you were not getting any better. While here we find you to have 3 things: 1. Mild diastolic congestive heart failure. This causes backup of blood into your lungs, the right side of your heart, and eventually your legs giving you swollen legs. You are already on those medications to treat this at home. We just adjusted those mildly while here. We did an ultrasound of your heart called an echocardiogram and found the left heart chamber to be pumping well. You have only minimally leaking valves. Please reduce salt to 2000 mg a day in your diet. Elevate your legs. Take an over the counter tablet of magnesium to avoid getting leg cramps. I also recommend outpatient physical therapy with close attention to lymphedema therapy of your legs. 2. Bronchitis with exacerbation. Your sputum culture grew out a bacteria called Acinetobacter. At home you take albuterol and guaifenesin. You also take Flovent inhaler. We are adding Advair which is a combination of your Flovent and a long-acting albuterol. You can stop our flovent for the lungs. You need to take the new inhaler twice a day. Rinse out your mouth after inhaling it. You rinse your mouth out because it can cause yeast. Dr. Heredia may change the Advair to Spiriva or may add Spiriva to the Advair. I will be sending you home on antibiotics to finish treatment for the bronchitis. You will take 1 pill every other day for 3 more doses and that is it. Please see Dr. Heredia in the next 2 weeks to see if the Advair is to continue or if you were to be on Spiriva. 3. Gout. You responded nicely to the gout medicine. That is allopurinol 200 mg a day. However, your kidney function, because of the diuretics, is making your kidneys feel like they are dehydrated. We have to be careful in giving you allopurinol with that. Although you are on 200 mg a day, Dr. Heredia may need to reduce that to 100 mg a day to avoid building up of the allopurinol in your blood as a result of kidney insufficiency.When you are home, and when sitting, elevate your legs at all times. Investigate different stockings that you could use more easily. Please see Dr. Heredia in the next 1-2 weeks. We are sending you home with home health to help you with follow-up for breathing, and increasing endurance because he became so weak while here. Once you are done with home health, I would strongly recommend that you be referred to outpatient physical therapy for lymphedema therapy of your legs. This will also help your legs get back to normal where you can see your ankle bones again. Follow-Up Care: Home Health - RN, Home Health - PT, Home Health - OT No Smoking: If you smoke, Please STOP! Call for help. Follow-up with: Ginny Heredia MD [Primary Care Provider] -
[2018-10-02] MEDS: POLYETHYLENE GLYCOL 3350 17 GM PACKET PO SCH (09:36)
[2018-10-02] MEDS: levoFLOXacin 250 MG TABLET PO SCH (09:37)
[2018-10-02] MEDS: FERROUS GLUCONATE 324 MG TABLET PO SCH (09:38)
[2018-10-02] MEDS: guaiFENesin 600 MG TABLET PO SCH (09:38)
[2018-10-02] MEDS: APIXABAN 2.5 MG TABLET PO SCH (09:39)
[2018-10-02] MEDS: ALLOPURINOL 100 MG TABLET PO SCH (09:39)
[2018-10-02] MEDS: METOPROLOL SUCCINATE 50 MG TABLET PO SCH (09:40)
[2018-10-02] MEDS: FOLIC ACID 1 MG TABLET PO SCH (09:40)
[2018-10-02] MEDS: SODIUM CHLORIDE FLUSH 0.9% 10 ML SYRINGE IVP SCH (14:02)
[2018-10-02 14:52] VITALS: BP 122/66
--- NOTE | 2018-10-05 03:01 | DISCHARGE SUMMARY ---
Physician: Shelia Sharp MD DATE OF ADMISSION: 09/27/2018 DATE OF DISCHARGE: 10/02/2018 DISCHARGE DIAGNOSES 1. Chronic obstructive pulmonary disease exacerbation. 2. Acinetobacter bronchitis. 3. Acute diastolic congestive heart failure, stage 2. 4. Acute gout. 5. Paroxysmal atrial fibrillation. 6. Ventricular tachycardia, monomorphic. 7. Venous stasis cellulitis. 8. Peripheral neuropathy. 9. Acute kidney injury. 10. Iron deficiency anemia. 11. Obstructive sleep apnea. 12. Hypokalemia. 13. History of coronary artery disease. DISCHARGE MEDICATIONS 1. Albuterol 2.5 via nebulizer every 4 hours as needed. 2. Eliquis 2.5 mg p.o. b.i.d. 3. Tikosyn 125 mg capsule b.i.d. 4. Nexium 20 mg p.o. daily. 5. Flonase nasal spray 1 spray each nostril daily. 6. Flovent 1 puff b.i.d. 7. Lasix 80 mg p.o. daily. 8. Lisinopril 40 mg daily. 9. Metoprolol succinate 50 mg daily. 10. Simvastatin 20 mg daily. 11. Guaifenesin with codeine 5 mL every 6 hours as needed for cough. 12. Zyloprim 200 mg tablet daily. We strongly suggest reducing to 100 mg or stopping, depending on gout symptoms. 13. Advair 104/50 b.i.d. 14. Folic acid 1 mg daily. 15. Levaquin 750 p.o. every other day for 3 more doses. 16. Magnesium 400 mg p.o. daily. 17. Medrol Dosepak to be tapered as instructed. 18. Multivitamin 1 tablet daily. PRINCIPAL PROCEDURES 1. Echocardiogram with mild concentric left ventricular hypertrophy. Overall, left ventricular systolic function normal with 60-65% ejection fraction. Mild increased left atrial volume index. Mild right atrial enlargement. Trace mild regurgitation. Aortic root and ascending aorta dilated to 3.8 cm. 2. Chest x-rays 09/26/2018 and 09/27/2018 showing chronic findings of diffuse interstitial prominences, but no infiltrates. He did have some mild bibasilar atelectasis on the second chest x-ray. 3. Duplex scan lower extremity artery showing no hemodynamically significant stenosis identified. Atherosclerotic disease with monophasic flow in the calves bilaterally. 4. Venous duplex studies of lower extremity showing no evidence for DVT. Does have bilateral calf edema. 5. Blood cultures negative after 5 days. 6. Respiratory culture positive for Acinetobacter haemolyticus. HOSPITAL COURSE: The patient is a morbidly obese, pleasant white male who has a history of an unknown type of congestive heart failure, coronary artery disease with stents, prior history of atrial fibrillation, now on Eliquis and Tikosyn. He has chronic kidney disease, hypertension, reflux disease. He was admitted with 3 days of leg edema, increasing dyspnea on exertion that did not respond to outpatient therapy when PCP gave higher dose of Lasix and compression stockings. He feels that his shortness of breath got worse, he developed orthopnea, developed a wet cough. Leg edema did decrease on the left leg, but the right leg edema got worse and the right leg also started getting redder and redder. While the right foot was redder, it was not painful. The left foot was agonizingly painful to walk on. He came into the emergency room. He was felt to have an elevated BNP, interstitial edema on chest x-ray from congestive heart failure, and probable cellulitis of the right lower extremity. In addition, he was felt to have possible gout of the left foot. The patient was started on empiric antibiotic therapy for the cellulitis and COPD exacerbation. Toradol also helped with pain and inflammation in the feet and the leg. He was initially on IV antibiotics and then switched to p.o. antibiotics 09/29/2018. His initial antibiotic regimen consisted of Keflex and clindamycin, then also Diflucan for yeast that was growing in his sputum. Mucinex was used to treat pulmonary toilet. As all of these medications were added, the patient also had been having runs of paroxysmal atrial fibrillation as well as runs of monomorphic ventricular tachycardia. In an effort to avoid V-tach, his Diflucan was stopped after 3 doses. Keflex and clindamycin was changed to Levaquin every other day. He received arterial and venous duplex studies to evaluate his lower extremity. There was no DVT and minimal atherosclerotic disease. Gout was treated with colchicine and allopurinol, but colchicine was stopped due to interaction with Diflucan. Continued on allopurinol. Considering this patient has chronic kidney disease, an allopurinol dose of 200 mg may be borderline high and should be probably discontinued or decreased to 100 mg p.o. daily. Acute kidney injury superimposed on chronic kidney disease was noted with a creatinine rising minimally. On the day of discharge, it was 2. As such, he was kept off diuretics, initially kept off his HOLA inhibitors. He had also received a nonsteroidal and 1 dose of vancomycin for the legs, so there was concern about iatrogenic-induced disease. He had an anemia where folate and B12 studies were done. Iron is low at 37, TIBC 161, percent saturation 23, transferrin 115. B12 normal at 194 and folate low at 4.5. As such, he was started on folate and a multivitamin. Because of the iron deficiency anemia, we have asked him to make sure he follows up with his PCP about his GI workup in the past to see if those studies are up to date. He does take a proton pump inhibitor for reflux disease. In addition to being treated for COPD exacerbation and growing out Acinetobacter in his phlegm, he was felt to be covered by the antibiotics for his legs. He was also treated with acute CHF sometimes on diuretics and sometimes off diuretics. BNP was initially 312 on 09/26/2018 and was 438 on 09/27/2018. From a lung perspective, he had crackles at the bases, but no JVD, no increased respiratory effort. The patient stated that he really wanted his benefits manager to get a copy of this discharge summary. That is Dr. Yemi Noriega at [phone]. Hypokalemia was treated with oral potassium. Coronary artery disease was evaluated with troponins and EKG and negative for acute changes. By discharge, his leg pain had improved tremendously. He still has bilateral malleolar edema, similar to what he had, he said, about a week ago. It is better, but he is adamant that he has skinny ankles where you can usually see the bone of his malleoli and he is much more edematous than usual. What we could not figure out was why he was so edematous and appeared to have heart failure on exam, but no evidence of reduced ejection fraction or high pulmonary pressures to cause sided heart failure on echo. For leg cramps he was sent home on magnesium tablets. On the day of discharge, he was complaining of pruritus on his arms, but no rash was visible. The patient was instructed to let us know or let his PCP know if anything changed. During the stay, he has been on clindamycin, Keflex, vancomycin, and Levaquin. Would want to make sure he is not developing a drug rash in the outpatient setting. DISCHARGE PHYSICAL EXAMINATION VITAL SIGNS: Temperature 36.4, pulse 60, blood pressure 122/66, respirations 18, saturation 96% on room air. GENERAL APPEARANCE: He is a morbidly obese, elderly white male, 5 feet 11 inches tall, 115 kg. NECK: Neck is thick, difficult to assess for JVD. LUNGS: Continue to have minimal crackles at the bases, but no increased respiratory effort. HEART: PMI not palpable. Regular rate and rhythm at discharge. He did go in and out of atrial fibrillation as already noted. He does have a pacer. ABDOMEN: The abdomen is hugely obese, distended. Nontender. EXTREMITIES: Continue have venous stasis changes of the skin of both legs. Te redness is much better, as well as the redness of the foot is much better over the course of the stay, according to review of the physical examination and the patient's statements. The painful feet that he had where he could barely walk on them has also improved. He still has it, felt to have possible peripheral neuropathy and venous duplex studies were negative for DVT. Arterial duplex study negative for ischemia. At discharge, I explained to him that he might want to reduce the allopurinol. He should probably consider outpatient physical therapy and will have lymphedema therapy. Complete the antibiotic therapy for Acinetobacter bronchitis. Review his cardiac medications with his benefits manager. If pruritus develops to let primary care provider or us know. Greater than 30 minutes was spent coordinating discharge. cc: Yemi Noriega MD TD: 10/04/2018 19:19 [facility]
== END 2018-10-02 15:20 | disposition home health service (06) | DRG 602 ==
LOC: ED 15:27 → OBS 17:44 → OBSVTOIN 09-27 07:25 → MS2 09-27 10:02
PROVIDERS: ADMIT Internal Medicine; ATTEND Specialist
DX: L03.115 Cellulitis of right lower limb (principal); I50.9 Heart failure, unspecified; I50.33 Acute on chronic diastolic (congestive) heart failure; B37.1 Pulmonary candidiasis; I13.0 Hypertensive heart and chronic kidney disease with heart failure and stage 1 through stage 4 chronic kidney disease, or unspecified chronic kidney disease; J44.1 Chronic obstructive pulmonary disease with (acute) exacerbation; I48.91 Unspecified atrial fibrillation; N17.9 Acute kidney failure, unspecified; G47.30 Sleep apnea, unspecified; J44.0 Chronic obstructive pulmonary disease with (acute) lower respiratory infection; I48.0 Paroxysmal atrial fibrillation; J20.8 Acute bronchitis due to other specified organisms; B96.89 Other specified bacterial agents as the cause of diseases classified elsewhere; E87.6 Hypokalemia; M10.9 Gout, unspecified; D50.9 Iron deficiency anemia, unspecified; N18.9 Chronic kidney disease, unspecified; G47.33 Obstructive sleep apnea (adult) (pediatric); K21.9 Gastro-esophageal reflux disease without esophagitis; M19.90 Unspecified osteoarthritis, unspecified site; I25.10 Atherosclerotic heart disease of native coronary artery without angina pectoris; E66.01 Morbid (severe) obesity due to excess calories; Z68.35 Body mass index [BMI] 35.0-35.9, adult; I87.8 Other specified disorders of veins; G62.9 Polyneuropathy, unspecified; G89.29 Other chronic pain; M54.9 Dorsalgia, unspecified; Z79.01 Long term (current) use of anticoagulants; Z79.51 Long term (current) use of inhaled steroids; Z95.5 Presence of coronary angioplasty implant and graft; Z87.01 Personal history of pneumonia (recurrent); Z95.0 Presence of cardiac pacemaker
CPT/HCPCS: 36415; 71045; 80048; 80053; 80202; 81001; 82607; 82746; 83540; 83605; 83690; 83735; 83880; 84132; 84466; 84484; 84550; 85025; 85651; 86140; 87040; 87070; 87077; 87181; 87205; 93005; 93306; 93925; 93970; 94640; 96365; 96366; 96367; 96375; 96376; 97116; 97162; 97530; 99284; A9270; G0378; J2270; J3370; J7626; 81003; 82272; 87086

== ENCOUNTER 2018-10-09 12:26 | Outpatient (CLI) | payer MEDICARE, OTHER ==
[2018-10-09 19:15] LABS: ALBUMIN 3.6 g/dL (3.2-5.5); ALBUMIN/GLOBULIN RATIO 1.2 (1.0-2.2); BILIRUBIN,TOTAL 0.6 mg/dL (0.2-1.0); CALCIUM 8.8 mg/dL (8.5-10.3); CREATININE 1.5 mg/dL (0.6-1.2); TOTAL PROTEIN 6.5 g/dL (6.7-8.2)
[2018-10-09 19:20] LABS: BASOPHILS % (AUTO) 0.3 %; EOSINOPHILS # (AUTO) 0.3 10^3/uL (0.0-0.7); EOSINOPHILS % (AUTO) 2.1 %; HGB - HEMOGLOBIN 13.1 g/dL (14.0-18.0); LYMPHOCYTES # (AUTO) 1.8 10^3/uL (1.5-3.5); LYMPHOCYTES % (AUTO) 11.7 %; MEAN CORPUSCULAR HGB CONC 31.3 g/dL (32.0-36.0); MEAN CORPUSCULAR VOLUME 89.6 fL (80.0-94.0); MEAN PLATELET VOLUME 8.7 fL (7.4-11.4); MONOCYTES # (AUTO) 1.1 10^3/uL (0.0-1.0); MONOCYTES % (AUTO) 7.2 %; NEUTROPHILS % (AUTO) 78.7 %; PLT - PLATELET COUNT 365 10^3/uL (130-450); RED BLOOD COUNT 4.67 10^6/uL (4.70-6.10); RED CELL DISTRIBUTION WIDTH 16.6 % (12.0-15.0); WHITE BLOOD COUNT 15.2 x10^3/uL (4.8-10.8)
[2018-10-09 20:16] LABS: PLATELET MORPHOLOGY NORMAL APPEARANCE (NORMAL)
[2018-10-09 20:17] LABS: PLATELET ESTIMATE, MANUAL NORMAL (130-450,000) (NORMAL)
== END 2018-10-09 12:27 | disposition home or self-care (01) ==
LOC: LAB.WCP 12:26
PROVIDERS: ATTEND Physician Assistant
DX: I50.9 Heart failure, unspecified (principal)
CPT/HCPCS: 36415; 80053; 85025

== ENCOUNTER 2018-10-12 09:43 | Outpatient (CLI) | payer MEDICARE, OTHER ==
[2018-10-12 13:30] LABS: BASOPHILS % (AUTO) 0.4 %; EOSINOPHILS # (AUTO) 0.3 10^3/uL (0.0-0.7); EOSINOPHILS % (AUTO) 2.3 %; HGB - HEMOGLOBIN 11.7 g/dL (14.0-18.0); LYMPHOCYTES # (AUTO) 1.4 10^3/uL (1.5-3.5); LYMPHOCYTES % (AUTO) 12.1 %; MEAN CORPUSCULAR HEMOGLOBIN 28.1 pg (27.0-31.0); MEAN CORPUSCULAR HGB CONC 31.7 g/dL (32.0-36.0); MEAN CORPUSCULAR VOLUME 88.6 fL (80.0-94.0); MEAN PLATELET VOLUME 8.9 fL (7.4-11.4); MONOCYTES # (AUTO) 0.9 10^3/uL (0.0-1.0); MONOCYTES % (AUTO) 7.6 %; NEUTROPHILS % (AUTO) 77.6 %; PLT - PLATELET COUNT 265 10^3/uL (130-450); RED BLOOD COUNT 4.16 10^6/uL (4.70-6.10); RED CELL DISTRIBUTION WIDTH 16.4 % (12.0-15.0); WHITE BLOOD COUNT 11.6 x10^3/uL (4.8-10.8)
[2018-10-12 13:40] LABS: ALBUMIN 3.2 g/dL (3.2-5.5); ALBUMIN/GLOBULIN RATIO 1.1 (1.0-2.2); BILIRUBIN,TOTAL 0.5 mg/dL (0.2-1.0); CALCIUM 8.9 mg/dL (8.5-10.3); CREATININE 1.4 mg/dL (0.6-1.2); TOTAL PROTEIN 6.2 g/dL (6.7-8.2)
== END 2018-10-12 23:59 | disposition home or self-care (01) ==
LOC: LAB.WCP 09:43
PROVIDERS: ATTEND Family Medicine
DX: L03.90 Cellulitis, unspecified (principal); N28.9 Disorder of kidney and ureter, unspecified; I50.9 Heart failure, unspecified; M10.9 Gout, unspecified
CPT/HCPCS: 36415; 80053; 85025

== ENCOUNTER 2018-10-18 10:26 | Outpatient (CLI) | payer MEDICARE, OTHER ==
[2018-10-18 13:13] LABS: BASOPHILS # (AUTO) 0.1 10^3/uL (0.0-0.1); BASOPHILS % (AUTO) 0.8 %; EOSINOPHILS # (AUTO) 0.2 10^3/uL (0.0-0.7); EOSINOPHILS % (AUTO) 3.1 %; HGB - HEMOGLOBIN 11.9 g/dL (14.0-18.0); LYMPHOCYTES # (AUTO) 1.1 10^3/uL (1.5-3.5); LYMPHOCYTES % (AUTO) 16.1 %; MEAN CORPUSCULAR HEMOGLOBIN 28.9 pg (27.0-31.0); MEAN CORPUSCULAR HGB CONC 32.7 g/dL (32.0-36.0); MEAN CORPUSCULAR VOLUME 88.3 fL (80.0-94.0); MEAN PLATELET VOLUME 8.7 fL (7.4-11.4); MONOCYTES # (AUTO) 0.6 10^3/uL (0.0-1.0); MONOCYTES % (AUTO) 8.4 %; NEUTROPHILS # (AUTO) 5.1 10^3/uL (1.5-6.6); NEUTROPHILS % (AUTO) 71.6 %; PLT - PLATELET COUNT 183 10^3/uL (130-450); RED BLOOD COUNT 4.12 10^6/uL (4.70-6.10); RED CELL DISTRIBUTION WIDTH 16.4 % (12.0-15.0); WHITE BLOOD COUNT 7.1 x10^3/uL (4.8-10.8)
[2018-10-18 13:20] LABS: CREATININE 1.6 mg/dL (0.6-1.2); URIC ACID 8.5 mg/dL (2.6-7.2)
== END 2018-10-18 23:59 | disposition home or self-care (01) ==
LOC: LAB.WCP 10:26
PROVIDERS: ATTEND Family Medicine
DX: N28.9 Disorder of kidney and ureter, unspecified (principal); I50.9 Heart failure, unspecified; M10.9 Gout, unspecified; L03.90 Cellulitis, unspecified
CPT/HCPCS: 36415; 80048; 83880; 84550; 85025

== ENCOUNTER 2018-10-25 09:24 | Outpatient (CLI) | payer MEDICARE, OTHER ==
[2018-10-25 13:30] LABS: CALCIUM 9.2 mg/dL (8.5-10.3); CREATININE 1.4 mg/dL (0.6-1.2)
== END 2018-10-25 23:59 | disposition home or self-care (01) ==
LOC: LAB.WCP 09:24
PROVIDERS: ATTEND Family Medicine
DX: N28.9 Disorder of kidney and ureter, unspecified (principal)
CPT/HCPCS: 36415; 80048

== ENCOUNTER 2018-12-04 10:43 | Outpatient (CLI) | payer MEDICARE, OTHER ==
[2018-12-04 12:59] LABS: CALCIUM 9.4 mg/dL (8.5-10.3); CREATININE 1.5 mg/dL (0.6-1.2)
== END 2018-12-04 23:59 | disposition home or self-care (01) ==
LOC: LAB.WCP 10:43
PROVIDERS: ATTEND Family Medicine
DX: N28.9 Disorder of kidney and ureter, unspecified (principal)
CPT/HCPCS: 36415; 80048

== ENCOUNTER 2018-12-14 10:56 | Outpatient (CLI) | payer MEDICARE, OTHER ==
--- NOTE | 2018-12-14 14:52 | XRAY Report ---
Reason: HAND PAIN,BILATERAL Procedure Date: 12/14/2018 Accession Number: [id number] / [id number] Procedure: WCP - Hand 3 View BILAT CPT Code: FULL RESULT: EXAMS: 1. Right Hand Radiography 2. Left Hand Radiography EXAM DATE: 12/14/2018 11:09 AM. CLINICAL HISTORY: HAND PAIN,BILATERAL. COMPARISON: None. TECHNIQUE: 3 views each hand. FINDINGS: Right: Bones: Normal. No fractures or bone lesions. Joints: Osteophyte joint space narrowing fifth DIP and PIP joint. Adjacent soft tissue calcification at the DIP joint. First interphalangeal joint osteophyte. Mild osteophyte other DIP, PIP joints. Soft Tissues: Soft tissue swelling. Left: Bones: Normal. No fractures or bone lesions. Joints: Osteophyte joint space narrowing first interphalangeal joint. Mild PIP, DIP joint space narrowing. Soft Tissues: Soft tissue swelling. IMPRESSION: DJD right greater than left hand [facility]
== END 2018-12-14 10:57 | disposition home or self-care (01) ==
LOC: DI.WCP 10:56
PROVIDERS: ATTEND Family Medicine
DX: M19.042 Primary osteoarthritis, left hand (principal); M19.041 Primary osteoarthritis, right hand

== ENCOUNTER 2018-12-24 08:00 | Outpatient (CLI) | payer MEDICARE, OTHER | END 2018-12-24 23:59 | disposition home or self-care (01) | LOC: LAB.R 08:00 | PROVIDERS: ATTEND Physician Assistant Medical | DX: L03.011 Cellulitis of right finger (principal) | CPT/HCPCS: 87070; 87205 ==

== ENCOUNTER 2019-01-10 11:59 | Outpatient (CLI) | payer MEDICARE, OTHER ==
[2019-01-10 19:09] LABS: ALBUMIN/GLOBULIN RATIO 1.4 (1.0-2.2); BILIRUBIN,TOTAL 0.6 mg/dL (0.2-1.0); CALCIUM 9.5 mg/dL (8.5-10.3); CREATININE 1.5 mg/dL (0.6-1.2); TOTAL PROTEIN 6.9 g/dL (6.7-8.2); URIC ACID 11.4 mg/dL (2.6-7.2)
== END 2019-01-10 23:59 | disposition home or self-care (01) ==
LOC: LAB.WCP 11:59
PROVIDERS: ATTEND Family Medicine
DX: I10 Essential (primary) hypertension (principal); N28.9 Disorder of kidney and ureter, unspecified; M10.9 Gout, unspecified
CPT/HCPCS: 36415; 80053; 84550

== ENCOUNTER 2019-01-21 08:00 | Outpatient (CLI) | payer MEDICARE, OTHER ==
[2019-01-21 18:39] LABS: ALBUMIN 3.9 g/dL (3.2-5.5); ALBUMIN/GLOBULIN RATIO 1.2 (1.0-2.2); BILIRUBIN,TOTAL 0.8 mg/dL (0.2-1.0); CALCIUM 9.2 mg/dL (8.5-10.3); CREATININE 1.4 mg/dL (0.6-1.2); TOTAL PROTEIN 7.1 g/dL (6.7-8.2); URIC ACID 10.7 mg/dL (2.6-7.2)
== END 2019-01-21 23:59 | disposition home or self-care (01) ==
LOC: LAB.WCP 08:00
PROVIDERS: ATTEND Family Medicine
DX: I10 Essential (primary) hypertension (principal); N28.9 Disorder of kidney and ureter, unspecified; M10.9 Gout, unspecified
CPT/HCPCS: 36415; 80053; 84550

== ENCOUNTER 2019-02-15 | Outpatient (CLI) | payer MEDICARE, OTHER | END 2019-02-15 23:59 | disposition home or self-care (01) ==

== ENCOUNTER 2019-02-25 17:46 | Emergency (ER) | payer MEDICARE, OTHER ==
--- NOTE | 2019-02-25 18:50 | XRAY Report ---
Reason: heart irregularities Procedure Date: 02/25/2019 Accession Number: [id number] / [id number] Procedure: XR - Chest 1 View X-Ray CPT Code: 56898 FULL RESULT: EXAM: CHEST RADIOGRAPHY EXAM DATE: 02/25/2019 06:38 PM. CLINICAL HISTORY: Heart irregularities. COMPARISON: CHEST 1 VIEW 09/27/2018 6:27 AM CHEST 1 VIEW 09/26/2018 4:36 PM CHEST 2 VIEW PA/LAT 10/30/2017 11:43 AM. TECHNIQUE: 1 view. FINDINGS: Lungs/Pleura: New mild patchy bilateral mid and lower lung airspace disease, could represent mild pulmonary edema or pneumonia. Triangular shaped opacification seen at the right upper to mid lung, could represent infiltrate versus loculated effusion in the right major fissure, new. No pneumothorax. Mediastinum: Within exam limitations, the cardiomediastinal contour is normal. Other: Pacemaker again noted. IMPRESSION: New mild patchy bilateral mid and lower lung airspace disease, could represent mild pulmonary edema or pneumonia. Triangular shaped opacification seen at the right upper to mid lung, could represent infiltrate versus loculated effusion in the right major fissure, new. No pneumothorax. Pacemaker again noted. RADIA
[2019-02-25 19:06] LABS: BASOPHILS # (AUTO) 0.1 10^3/uL (0.0-0.1); BASOPHILS % (AUTO) 0.5 %; EOSINOPHILS # (AUTO) 0.1 10^3/uL (0.0-0.7); EOSINOPHILS % (AUTO) 0.6 %; HGB - HEMOGLOBIN 11.4 g/dL (14.0-18.0); LYMPHOCYTES # (AUTO) 1.1 10^3/uL (1.5-3.5); LYMPHOCYTES % (AUTO) 8.4 %; MEAN CORPUSCULAR HEMOGLOBIN 27.7 pg (27.0-31.0); MEAN CORPUSCULAR HGB CONC 31.1 g/dL (32.0-36.0); MEAN CORPUSCULAR VOLUME 89.1 fL (80.0-94.0); MEAN PLATELET VOLUME 10.6 fL (7.4-11.4); MONOCYTES # (AUTO) 0.9 10^3/uL (0.0-1.0); MONOCYTES % (AUTO) 7.5 %; NEUTROPHILS # (AUTO) 10.3 10^3/uL (1.5-6.6); NEUTROPHILS % (AUTO) 82.3 %; PLT - PLATELET COUNT 288 10^3/uL (130-450); RED BLOOD COUNT 4.11 10^6/uL (4.70-6.10); RED CELL DISTRIBUTION WIDTH 15.6 % (12.0-15.0); WHITE BLOOD COUNT 12.5 x10^3/uL (4.8-10.8)
--- NOTE | 2019-02-25 19:16 | ED Physician Documentation ---
History of Present Illness - Stated complaint Stated Complaint: SOA/HIGH HR - Chief complaint Chief Complaint: Cardiac - History obtained from History obtained from: Patient - Additonal information Additional information: Patient is an 83-year-old male with history of COPD, CAD, CHF, A. fib, sleep apnea and anticoagulated on Eliquis presenting from primary care physician office with concern for A. fib with RVR while he was being evaluated for concern of cough and cold symptoms over the past few days. Patient reports hacking cough and subjective fever, but denies chest pain or other shortness of breath. Patient denies abdominal complaints including pain, nausea, vomiting, urinary changes, or stool changes. Patient also denies edema or weight gain and has in fact lost several pounds recently. He is otherwise compliant with all medications. No other improving or worsening factors noted. Review of Systems Constitutional: reports: Fever Nose: reports: Rhinorrhea / runny nose, Congestion Cardiac: reports: Palpitations. denies: Chest pain / pressure, Pedal edema Respiratory: reports: Dyspnea, Cough GI: denies: Abdominal Pain, Nausea, Vomiting, Diarrhea : denies: Dysuria PD PAST MEDICAL HISTORY - Past Medical History Cardiovascular: Hypertension, Atrial fibrillation Respiratory: Asthma Endocrine/Autoimmune: None GI: GERD, Hemorrhoids, Diverticulitis : Kidney stones HEENT: None Psych: None Musculoskeletal: Osteoarthritis, Chronic back pain Derm: None - Past Surgical History Past Surgical History: Yes General: Colonoscopy, EGD Ortho: Hip replacement, Spine surgery Cardiovascular: Coronary stent, Other HEENT: Cataracts, Tonsil/Adenoidectomy - Present Medications Home Medications: Ambulatory Orders Medication Instructions Recorded Confirmed Apixaban [Eliquis] 2.5 - 5 mg PO BID 04/23/16 09/27/18 Esomeprazole Magnesium [Nexium] 20 mg PO QDDINNER 04/23/16 09/26/18 Simvastatin 20 mg PO QPM 04/23/16 09/26/18 Fluticasone 110 Mcg [Flovent] 1 puffs INH BID 07/26/16 09/26/18 Fluticasone [Flonase] 1 sprays KRISHNA BID PRN 07/26/16 09/26/18 Metoprolol Succinate 50 mg PO DAILY 07/26/16 09/26/18 guaiFENesin/CODEINE [Robitussin AC] 5 ml PO Q6HR PRN #120 udc 07/28/16 09/26/18 Dofetilide [Tikosyn] 1 tab ORAL BID 09/26/18 09/26/18 Furosemide [Lasix] 80 mg pe ORAL DAILY 09/26/18 09/26/18 Lisinopril 20 mg ORAL DAILY 09/26/18 09/26/18 Albuterol 2.5 mg NEB Q4H PRN 09/27/18 09/27/18 Albuterol Sulfate [Albuterol 2 puffs INH Q4H PRN 09/27/18 09/27/18 Sulfate Hfa] Allopurinol [Zyloprim] 200 mg PO DAILY #30 tablet 10/02/18 Fluticasone/Salmeterol [Advair 1 each IH BID #1 blst.w.dev 10/02/18 100-50 Diskus] Folic Acid 1 mg PO DAILY #30 tablet 10/02/18 Levofloxacin [Levaquin] 750 mg PO Q2D #3 tablet 10/02/18 Magnesium Oxide [Magnesium] 400 mg PO DAILY #100 capsule 10/02/18 Methylprednisolone [Medrol] 4 mg PO DAILY #1 tab.ds.pk 10/02/18 Multivitamin with Iron [One Daily 1 each PO DAILY #100 tablet 10/02/18 with Iron] Doxycycline Hyclate 100 mg PO BID 7 Days capsule 02/25/19 - Allergies Allergies/Adverse Reactions: Allergies Allergy/AdvReac Type Severity Reaction Status Date / Time diltiazem HCl * Allergy Unknown Verified 02/25/19 18:28 [From Cardizem] Sulfa (Sulfonamide Allergy Anaphylaxis Verified 02/25/19 18:28 Antibiotics) - Social History Does the pt smoke?: No Smoking Status: Never smoker Does the pt drink ETOH?: No - Immunizations Immunizations are current?: Yes PD ED PE NORMAL - Vitals Vital signs reviewed: Yes - General General: Alert and oriented X 3, No acute distress, Well developed/nourished - HEENT HEENT: Atraumatic, Moist mucous membranes - Neck Neck: Supple, no meningeal sign - Cardiac Cardiac: No murmur. No: RRR (Irregular) - Respiratory Respiratory: No respiratory distress. No: Clear bilaterally (Coarse breath sounds throughout without wheezing or crackles. Poor air movement) - Abdomen Abdomen: Soft, Non tender, Non distended - Derm Derm: Normal color, Warm and dry, No rash - Extremities Extremities: No deformity, No tenderness to palpate, No edema - Neuro Neuro: Alert and oriented X 3, No motor deficit, No sensory deficit - Psych Psych: Normal mood, Normal affect Results - Vitals Vitals: Vital Signs - 24 hr 02/25/19 02/25/19 18:26 20:24 Temperature 37.4 C Heart Rate 134 H 96 Respiratory 20 22 Rate Blood Pressure 121/83 H 131/73 H O2 Saturation 93 97 Oxygen O2 Source [] Room air O2 Source Room air - EKG (time done) 1953 Rate: Rate (enter#) (93) Rhythm: NSR Intervals: RBBB Compare to prior EKG: Changed from prior EKG - Labs Labs: Laboratory Tests 02/25/19 02/25/19 02/25/19 18:53 18:53 18:53 WBC 12.5 H RBC 4.11 L Hgb 11.4 L Hct 36.6 L MCV 89.1 MCH 27.7 MCHC 31.1 L RDW 15.6 H Plt Count 288 MPV 10.6 Neut # (Auto) 10.3 H Lymph # (Auto) 1.1 L [place] # (Auto) 0.9 Eos # (Auto) 0.1 Baso # (Auto) 0.1 Absolute Nucleated RBC 0.00 Nucleated RBC % 0.0 PT 19.9 H INR 1.8 H APTT 37.1 H Sodium 143 Potassium 3.1 L Chloride 99 L Carbon Dioxide 28 Anion Gap 16.0 H BUN 33 H Creatinine 1.6 H Estimated GFR (MDRD) 41 L Glucose 103 H Calcium 9.3 Total Bilirubin 0.6 AST 29 ALT 23 Alkaline Phosphatase 70 Troponin I High Sens B-Natriuretic Peptide Total Protein 7.3 Albumin 3.6 Globulin 3.7 Albumin/Globulin Ratio 1.0 Lipase 24 02/25/19 02/25/19 02/25/19 18:53 18:53 21:48 WBC RBC Hgb Hct MCV MCH MCHC RDW Plt Count MPV Neut # (Auto) Lymph # (Auto) [place] # (Auto) Eos # (Auto) Baso # (Auto) Absolute Nucleated RBC Nucleated RBC % PT INR APTT Sodium Potassium Chloride Carbon Dioxide Anion Gap BUN Creatinine Estimated GFR (MDRD) Glucose Calcium Total Bilirubin AST ALT Alkaline Phosphatase Troponin I High Sens 28.0 H* 23.8 H* B-Natriuretic Peptide 823 H Total Protein Albumin Globulin Albumin/Globulin Ratio Lipase PD MEDICAL DECISION MAKING - ED course ED course: Patient presenting with symptoms concerning for pneumonia and was seen by his primary care physician briefly but noted to be and possible atrial fibrillation with RVR and sent to the ED. EKG initially seen by another physician but upon review, has appearance of atrial flutter and right bundle branch block.Upon physical exam, patient was rate controlled and repeat EKG later indicated Patient converted spontaneously into normal sinus rhythm and remained in that during ED stay. Chest x-ray revealed evidence of pneumonia. Also considered CHF exacerbation, but given x-ray appearance, as well as lack of fluid overload and actually weight loss per patient, feel this is less likely. Do not feel patient requires nitro, Lasix, or treatment for CHF at this time. Troponin high-sensitivity returned elevated and again feel this is reflected of demand given recent tachycardia, known CHF, pneumonia. Do not feel patient is experiencing an acute OK, ACS, unstable angina, dissection, aneurysm, but considered. Continued to monitor in the ED for several hours and repeat troponin high-sensitivity declined. Had extensive discussion with patient regarding this elevation in decline, pneumonia treatment and antibiotic selection for such given his multiple other medications, other supportive cares, and need for close follow-up. Otherwise, feel he is safe to discharge home. Patient and family voiced understanding and are comfortable with discharge plan. Departure - Departure Disposition: 01 Home, Self Care Clinical Impression: Pneumonia Condition: Good Instructions: ED Pneumonia Adult Follow-Up: Ginny Heredia MD [Primary Care Provider] - Within 3 Days Prescriptions: Doxycycline Hyclate 100 mg PO BID 7 Days capsule Comments: Please continue all home medications as previously instructed. Please take antibiotics as provided starting tomorrow as you received your first dose in the ED tonight. Recommend taking antibiotics with small amount of food to avoid upset stomach. Please follow-up closely with your primary care physician in next 2 to 3 days and return to ED sooner if experience worsening symptoms or have other concerns.
[2019-02-25 19:22] LABS: ALBUMIN 3.6 g/dL (3.2-5.5); BILIRUBIN,TOTAL 0.6 mg/dL (0.2-1.0); CALCIUM 9.3 mg/dL (8.5-10.3); CREATININE 1.6 mg/dL (0.6-1.2); TOTAL PROTEIN 7.3 g/dL (6.7-8.2)
[2019-02-25] MEDS ORDERED: DOXYCYCLINE 100 MG TABLET PO STA (19:38)
[2019-02-25 20:00] LABS: INR 1.8 (0.8-1.2); PT - PROTHROMBIN TIME 19.9 secs (9.9-12.6)
[2019-02-25 20:07] LABS: PARTIAL THROMBOPLASTIN TIME 37.1 secs (24.9-33.3)
[2019-02-25 23:01] VITALS: BP 120/67
== END 2019-02-25 23:02 | disposition home or self-care (01) ==
LOC: ED 17:46
DX: J18.9 Pneumonia, unspecified organism (principal); I48.92 Unspecified atrial flutter; Z79.01 Long term (current) use of anticoagulants; I45.10 Unspecified right bundle-branch block; I11.0 Hypertensive heart disease with heart failure; I50.9 Heart failure, unspecified; J44.9 Chronic obstructive pulmonary disease, unspecified; I25.10 Atherosclerotic heart disease of native coronary artery without angina pectoris; Z95.5 Presence of coronary angioplasty implant and graft
CPT/HCPCS: 36415; 71045; 80053; 83690; 83880; 84484; 85025; 85610; 85730; 87040; 93005; 99284; A9270

== ENCOUNTER 2019-03-08 08:00 | Outpatient (CLI) | payer MEDICARE, OTHER ==
[2019-03-08 18:33] LABS: BASOPHILS # (AUTO) 0.1 10^3/uL (0.0-0.1); BASOPHILS % (AUTO) 0.8 %; EOSINOPHILS # (AUTO) 0.3 10^3/uL (0.0-0.7); EOSINOPHILS % (AUTO) 2.9 %; HGB - HEMOGLOBIN 10.7 g/dL (14.0-18.0); LYMPHOCYTES # (AUTO) 1.6 10^3/uL (1.5-3.5); LYMPHOCYTES % (AUTO) 15.2 %; MEAN CORPUSCULAR HEMOGLOBIN 27.1 pg (27.0-31.0); MEAN CORPUSCULAR VOLUME 90.4 fL (80.0-94.0); MEAN PLATELET VOLUME 10.8 fL (7.4-11.4); MONOCYTES # (AUTO) 0.8 10^3/uL (0.0-1.0); MONOCYTES % (AUTO) 7.1 %; NEUTROPHILS # (AUTO) 7.8 10^3/uL (1.5-6.6); NEUTROPHILS % (AUTO) 73.1 %; PLT - PLATELET COUNT 339 10^3/uL (130-450); RED BLOOD COUNT 3.95 10^6/uL (4.70-6.10); RED CELL DISTRIBUTION WIDTH 16.2 % (12.0-15.0); WHITE BLOOD COUNT 10.6 x10^3/uL (4.8-10.8)
[2019-03-08 19:27] LABS: ALBUMIN 3.6 g/dL (3.2-5.5); ALBUMIN/GLOBULIN RATIO 1.1 (1.0-2.2); BILIRUBIN,TOTAL 0.5 mg/dL (0.2-1.0); CALCIUM 9.3 mg/dL (8.5-10.3); CREATININE 1.4 mg/dL (0.6-1.2)
== END 2019-03-08 23:59 | disposition home or self-care (01) ==
LOC: LAB.WCP 08:00
PROVIDERS: ATTEND Family Medicine
DX: I11.0 Hypertensive heart disease with heart failure (principal); I50.9 Heart failure, unspecified; J18.9 Pneumonia, unspecified organism
CPT/HCPCS: 36415; 80053; 83880; 85025

== ENCOUNTER 2019-03-08 08:00 | Outpatient (CLI) | payer MEDICARE, OTHER ==
--- NOTE | 2019-03-09 08:19 | XRAY Report ---
Reason: PNEUMONIA,AFIB Procedure Date: 03/08/2019 Accession Number: [id number] / [id number] Procedure: WCP - Chest 2 View X-Ray CPT Code: 15158 FULL RESULT: EXAM: CHEST RADIOGRAPHY EXAM DATE: 03/08/2019 10:46 AM. CLINICAL HISTORY: Pneumonia followup, atrial fibrillation. COMPARISON: CHEST 1 VIEW 02/25/2019 6:37 PM. TECHNIQUE: 2 views. FINDINGS: Lungs/Pleura: Partial clearing of bilateral airspace opacities with mild residual. Again questionable right midlung nodular density. No pneumothorax or significant effusion. Mediastinum: Heart and mediastinal contours are unremarkable. Other: Stable left pacer. IMPRESSION: Partial clearing of bilateral airspace opacities with mild residual -- continued followup suggested to ensure clearance. If opacities persist, particularly somewhat nodular right perihilar opacity, chest CT suggested. RADIA
== END 2019-03-08 23:59 | disposition home or self-care (01) ==
LOC: DI.WCP 08:00 → EDSTATUS 13:17 → DI.WCP 23:59
PROVIDERS: ATTEND Family Medicine
DX: J18.9 Pneumonia, unspecified organism (principal); I48.91 Unspecified atrial fibrillation
CPT/HCPCS: 71046

== ENCOUNTER 2019-03-11 08:00 | Outpatient (CLI) | payer MEDICARE, OTHER ==
[2019-03-11 18:40] LABS: CALCIUM 9.1 mg/dL (8.5-10.3); CREATININE 1.5 mg/dL (0.6-1.2)
== END 2019-03-11 23:59 | disposition home or self-care (01) ==
LOC: LAB.WCP 08:00
PROVIDERS: ATTEND Family Medicine
DX: E87.5 Hyperkalemia (principal)
CPT/HCPCS: 36415; 80048

== ENCOUNTER 2019-03-13 08:53 | Outpatient (CLI) | payer MEDICARE, OTHER ==
--- NOTE | 2019-03-13 15:23 | Ultrasound Report ---
Reason: STAGE 3 KIDNEY DISEASE, URINATION DIFFICULTY Procedure Date: 03/13/2019 Accession Number: [id number] / [id number] Procedure: US - Retroperitoneal CPT Code: FULL RESULT: EXAM: RENAL ULTRASOUND EXAM DATE: 03/13/2019 11:25 AM. CLINICAL HISTORY: STAGE 3 KIDNEY DISEASE, URINATION DIFFICULTY. COMPARISON: None. TECHNIQUE: Real-time scanning was performed with static images obtained. FINDINGS: Right Kidney: 11.0 x 5.3 x 4.9 cm. Normal echotexture with no stones, contour-deforming masses, or hydronephrosis. An exophytic cyst of the mid kidney measures 0.8 cm. Left Kidney: 11.5 x 4.6 x 6.2 cm. Normal echotexture with no stones, contour-deforming masses, or hydronephrosis. Inferior pole cyst measures up to 1.9 cm. Bladder: Bilateral jets seen. The prevoid bladder volume was 72 cc. The postvoid bladder volume was 4 cc. No masses or wall thickening evident. Other: None. IMPRESSION: 1. No hydronephrosis or post void residual. 2. Bilateral simple renal cysts. RADIA
== END 2019-03-13 08:54 | disposition home or self-care (01) ==
LOC: DI 08:53
PROVIDERS: ATTEND Internal Medicine Nephrology
DX: N18.3 Chronic kidney disease, stage 3 (moderate) (principal); N32.0 Bladder-neck obstruction; N28.1 Cyst of kidney, acquired
CPT/HCPCS: 76770

== ENCOUNTER 2019-03-15 19:35 | Outpatient (CLI) | payer MEDICARE, OTHER ==
[2019-03-15 19:07] LABS: PHOSPHORUS 3.6 mg/dL (2.5-4.6); URIC ACID 6.7 mg/dL (2.6-7.2)
[2019-03-15 19:27] LABS: CALCIUM 8.8 mg/dL (8.5-10.3); CREATININE 1.4 mg/dL (0.6-1.2)
== END 2019-03-15 23:59 | disposition home or self-care (01) ==
LOC: LAB.WCP 19:35
PROVIDERS: ATTEND Internal Medicine Nephrology
DX: I50.32 Chronic diastolic (congestive) heart failure (principal); M10.00 Idiopathic gout, unspecified site; E83.30 Disorder of phosphorus metabolism, unspecified; E87.6 Hypokalemia; N25.81 Secondary hyperparathyroidism of renal origin
CPT/HCPCS: 36415; 80048; 83880; 83970; 84100; 84550

== ENCOUNTER 2019-03-19 15:10 | Outpatient (CLI) | payer MEDICARE, OTHER ==
--- NOTE | 2019-03-20 07:53 | XRAY Report ---
Reason: COPD Procedure Date: 03/19/2019 Accession Number: [id number] / [id number] Procedure: WCP - Chest 2 View X-Ray CPT Code: 85149 FULL RESULT: EXAM: CHEST RADIOGRAPHY EXAM DATE: 03/19/2019 03:31 PM. CLINICAL HISTORY: COPD. COMPARISON: CHEST 2 VIEW 03/08/2019 10:15 AM CHEST 1 VIEW 02/25/2019 6:37 PM CHEST 2 VIEW PA/LAT 07/26/2016 10:40 AM CHEST W/ 05/26/2014 11:29 AM. TECHNIQUE: 2 views. FINDINGS: Lungs/Pleura: Stable mild bibasilar infiltrate versus atelectasis. The upper lungs appear clear. Cardiac pacer left chest. Mediastinum: Heart and mediastinal contours are unremarkable. Other: None. IMPRESSION: Stable appearance of lungs versus most recent comparison, with mild residual infiltrate at the lung bases. RADIA
== END 2019-03-19 23:59 | disposition home or self-care (01) ==
LOC: DI.WCP 15:10
PROVIDERS: ATTEND Physician Assistant
DX: R91.8 Other nonspecific abnormal finding of lung field (principal)
CPT/HCPCS: 71046

== ENCOUNTER 2019-03-26 13:02 | Outpatient (CLI) | payer MEDICARE, OTHER ==
--- NOTE | 2019-03-28 08:37 | CT Report ---
Reason: COPD Procedure Date: 03/26/2019 Accession Number: [id number] / [id number] Procedure: CT - CHEST WO CPT Code: FULL RESULT: EXAM: CT CHEST EXAM DATE: 03/26/2019 01:35 PM. CLINICAL HISTORY: COPD. COMPARISONS: CHEST W/ 05/26/2014 11:29 AM. TECHNIQUE: Routine helical CT imaging was performed through the chest. IV contrast: None. Reconstructions: Coronal and sagittal. In accordance with CT protocol optimization, one or more of the following dose reduction techniques were utilized for this exam: automated exposure control, adjustment of mA and/or KV based on patient size, or use of iterative reconstructive technique. FINDINGS: Lungs/Pleura: Diffuse moderate centrilobular emphysema bilaterally again seen. Interval new multiple foci of ill-defined patchy pulmonary opacities in the bilateral lower lobes, superior lingula, right middle lobe and the right upper lobe, predominately in the right lower lobe of ill-defined coarse bandlike patch opacities, without bronchiectasis or cavitary process visualized. No hilar mass, adenopathy or edema. No pericardial or pleural effusion. No pneumothorax. Mediastinum: No new adenopathy or masses. Coronary artery calcification without cardiomegaly again seen. Pacemaker leads in the right heart are newly seen. There is mild tortuous descending thoracic aorta. No thoracic aortic aneurysm. Bones: Unremarkable. Visualized Abdomen: Unremarkable. IMPRESSION: COPD and interval new multiple foci of ill-defined coarse bandlike patchy pulmonary opacities in the bilateral lower lobes, superior lingula, right middle lobe and the right upper lobe, predominately in the right lower lobe without bronchiectasis, cavitary process or adenopathy. Findings are nonspecific finding and suspicious for new subacute infection disease or nonspecific pneumonitis versus less likely sarcoidosis or malignant process. Recommend chest CT follow-up in 3 months. RADIA
== END 2019-03-26 13:03 | disposition home or self-care (01) ==
LOC: DI 13:02
PROVIDERS: ATTEND Physician Assistant
DX: J44.9 Chronic obstructive pulmonary disease, unspecified (principal); R91.8 Other nonspecific abnormal finding of lung field
CPT/HCPCS: 71250

== ENCOUNTER 2019-04-12 08:00 | Outpatient (CLI) | payer MEDICARE, OTHER ==
[2019-04-12 19:23] LABS: CALCIUM 9.5 mg/dL (8.5-10.3); CREATININE 3.2 mg/dL (0.6-1.2)
== END 2019-04-12 23:59 | disposition home or self-care (01) ==
LOC: LAB.WCP 08:00
PROVIDERS: ATTEND Nurse Practitioner Family
DX: Z51.81 Encounter for therapeutic drug level monitoring (principal); Z79.899 Other long term (current) drug therapy
CPT/HCPCS: 36415; 80048

== ENCOUNTER 2019-04-12 19:52 | Outpatient (CLI) | payer MEDICARE, OTHER | END 2019-04-12 19:53 | disposition EMS.NT | LOC: EMS 19:52 | PROVIDERS: ATTEND Surgery | DX: R68.89 Other general symptoms and signs (principal) ==

== ENCOUNTER 2019-04-12 20:49 | Observation (INO) | payer MEDICARE, OTHER ==
[2019-04-12] MEDS ORDERED: SODIUM CHLORIDE 0.9% 1,000 ML IV ONE (21:16)
[2019-04-12 21:25] LABS: BASOPHILS # (AUTO) 0.1 10^3/uL (0.0-0.1); BASOPHILS % (AUTO) 0.7 %; EOSINOPHILS # (AUTO) 0.4 10^3/uL (0.0-0.7); EOSINOPHILS % (AUTO) 4.5 %; HGB - HEMOGLOBIN 12.4 g/dL (14.0-18.0); LYMPHOCYTES # (AUTO) 1.7 10^3/uL (1.5-3.5); LYMPHOCYTES % (AUTO) 17.7 %; MEAN CORPUSCULAR HEMOGLOBIN 27.8 pg (27.0-31.0); MEAN CORPUSCULAR VOLUME 89.7 fL (80.0-94.0); MEAN PLATELET VOLUME 10.2 fL (7.4-11.4); MONOCYTES # (AUTO) 0.8 10^3/uL (0.0-1.0); MONOCYTES % (AUTO) 8.4 %; NEUTROPHILS # (AUTO) 6.5 10^3/uL (1.5-6.6); PLT - PLATELET COUNT 275 10^3/uL (130-450); RED BLOOD COUNT 4.46 10^6/uL (4.70-6.10); RED CELL DISTRIBUTION WIDTH 17.8 % (12.0-15.0); WHITE BLOOD COUNT 9.6 x10^3/uL (4.8-10.8)
--- NOTE | 2019-04-12 21:29 | ED Physician Documentation ---
History of Present Illness - Stated complaint Stated Complaint: PER ,CREATININE LEVEL HIGH - Chief complaint Chief Complaint: General - Additonal information Additional information: This is an 83-year-old male with history of COPD, CAD, CHF, atrial fibrillation on Eliquis, sleep apnea, Who presents after being called from his delivery table operator due to an elevated creatinine. Patient gets routine screening labs because he is on dofetilide, these were drawn today and when his delivery table operator reviewed them he received a call saying that his creatinine was over 3, and it should be 1.5 or lower. He was asked to come to the emergency department for a redraw. Patient was asymptomatic at the time of the call. Now he states that since receiving a call he has become somewhat worried and he does have a little bit of discomfort in his right lower back. He denies any hematuria or dysuria. He states that he does have a known history of kidney disease, and he recently decreased his dose of Lasix and lisinopril under the guidance of his nephro logist in order to improve his kidney function. On chart review his baseline creatinine is around 1.4-1.6. Review of Systems Constitutional: denies: Fever Cardiac: denies: Chest pain / pressure Respiratory: denies: Dyspnea GI: denies: Abdominal Pain : denies: Dysuria Skin: denies: Rash PD PAST MEDICAL HISTORY - Past Medical History Past Medical History: Yes Cardiovascular: Hypertension, Atrial fibrillation Respiratory: Asthma Endocrine/Autoimmune: None GI: GERD, Hemorrhoids, Diverticulitis : Kidney stones HEENT: None Psych: None Musculoskeletal: Osteoarthritis, Chronic back pain Derm: None - Past Surgical History Past Surgical History: Yes General: Colonoscopy, EGD Ortho: Hip replacement, Spine surgery Cardiovascular: Coronary stent, Other HEENT: Cataracts, Tonsil/Adenoidectomy - Present Medications Home Medications: Ambulatory Orders Medication Instructions Recorded Confirmed Apixaban [Eliquis] 2.5 - 5 mg PO BID 04/23/16 09/27/18 Esomeprazole Magnesium [Nexium] 20 mg PO QDDINNER 04/23/16 09/26/18 Simvastatin 20 mg PO QPM 04/23/16 09/26/18 Fluticasone 110 Mcg [Flovent] 1 puffs INH BID 07/26/16 09/26/18 Fluticasone [Flonase] 1 sprays KRISHNA BID PRN 07/26/16 09/26/18 Metoprolol Succinate 50 mg PO DAILY 07/26/16 09/26/18 guaiFENesin/CODEINE [Robitussin AC] 5 ml PO Q6HR PRN #120 udc 07/28/16 09/26/18 Dofetilide [Tikosyn] 1 tab ORAL BID 09/26/18 09/26/18 Furosemide [Lasix] 80 mg pe ORAL DAILY 09/26/18 09/26/18 Lisinopril 20 mg ORAL DAILY 09/26/18 09/26/18 Albuterol 2.5 mg NEB Q4H PRN 09/27/18 09/27/18 Albuterol Sulfate [Albuterol 2 puffs INH Q4H PRN 09/27/18 09/27/18 Sulfate Hfa] Allopurinol [Zyloprim] 200 mg PO DAILY #30 tablet 10/02/18 Fluticasone/Salmeterol [Advair 1 each IH BID #1 blst.w.dev 10/02/18 100-50 Diskus] Folic Acid 1 mg PO DAILY #30 tablet 10/02/18 Levofloxacin [Levaquin] 750 mg PO Q2D #3 tablet 10/02/18 Magnesium Oxide [Magnesium] 400 mg PO DAILY #100 capsule 10/02/18 Methylprednisolone [Medrol] 4 mg PO DAILY #1 tab.ds.pk 10/02/18 Multivitamin with Iron [One Daily 1 each PO DAILY #100 tablet 10/02/18 with Iron] Doxycycline Hyclate 100 mg PO BID 7 Days capsule 02/25/19 - Allergies Allergies/Adverse Reactions: Allergies Allergy/AdvReac Type Severity Reaction Status Date / Time diltiazem HCl * Allergy Unknown Verified 04/12/19 20:55 [From Cardizem] Sulfa (Sulfonamide Allergy Anaphylaxis Verified 04/12/19 20:55 Antibiotics) - Social History Does the pt smoke?: No Smoking Status: Never smoker Does the pt drink ETOH?: No Does the pt have substance abuse?: No - Immunizations Immunizations are current?: Yes - POLST Patient has POLST: No PD ED PE NORMAL - Vitals Vital signs reviewed: Yes - General General: Alert and oriented X 3, No acute distress - HEENT HEENT: PERRL - Neck Neck: Supple, no meningeal sign - Cardiac Cardiac: RRR, No murmur - Respiratory Respiratory: Clear bilaterally - Abdomen Abdomen: Normal bowel sounds, Soft, Non tender, Other (Rotund) - Derm Derm: Warm and dry - Extremities Extremities: No deformity - Neuro Neuro: Alert and oriented X 3 - Psych Psych: Normal mood, Normal affect Results - Vitals Vitals: Vital Signs - 24 hr 04/12/19 20:55 Temperature 36.6 C Heart Rate 80 Respiratory 16 Rate Blood Pressure 130/88 H O2 Saturation 96 Oxygen O2 Source [With Activity] Room air O2 Source Room air - Labs Labs: Laboratory Tests 04/12/19 04/12/19 04/12/19 21:21 21:21 22:00 WBC 9.6 RBC 4.46 L Hgb 12.4 L Hct 40.0 L MCV 89.7 MCH 27.8 MCHC 31.0 L RDW 17.8 H Plt Count 275 MPV 10.2 Neut # (Auto) 6.5 Lymph # (Auto) 1.7 [place] # (Auto) 0.8 Eos # (Auto) 0.4 Baso # (Auto) 0.1 Absolute Nucleated RBC 0.00 Nucleated RBC % 0.0 Sodium 139 Potassium 4.8 Chloride 100 L Carbon Dioxide 26 Anion Gap 13.0 BUN 89 H* Creatinine 3.0 H Estimated GFR (MDRD) 20 L Glucose 118 H Calcium 9.5 Total Bilirubin 0.3 AST 20 ALT 19 Alkaline Phosphatase 78 Total Protein 7.4 Albumin 4.3 Globulin 3.1 Albumin/Globulin Ratio 1.4 Lipase 48 Urine Color YELLOW Urine Clarity CLEAR Urine pH 5.5 Ur Specific [place] 1.015 Urine Protein NEGATIVE Urine Glucose (UA) NEGATIVE Urine Ketones NEGATIVE Urine Occult Blood SMALL H Urine Nitrite NEGATIVE Urine Bilirubin NEGATIVE Urine Urobilinogen 0.2 (NORMAL) Ur Leukocyte Esterase NEGATIVE Urine RBC 0-5 Urine WBC 0-3 Ur Squamous Epith Cells NONE SEEN Urine Bacteria None Seen Urine Casts 0-2 Hyaline Casts Ur Microscopic Review INDICATED Urine Culture Comments NOT INDICATED PD MEDICAL DECISION MAKING - ED course Complexity details: considered differential (ILEANA, dehydration, obstruction, electrolyte abnormality, chronic kidney disease) ED course: Patient presents asymptomatic, with request for a blood test due to an elevated creatinine. On review of his labs from early today his creatinine was 3.2, his BUN is elevated around 90, and he did have a elevated potassium which was 5.5. On repeat labs his creatinine is 3.0, potassium 4.8, and BUN remains elevated in the 80s. He was given a 1 L normal saline bolus due to the dehydration apparent on his labs, patient has no signs of volume overload at this time, and he tolerated the bolus well. His UA shows small occult blood no signs of infection. No signficant pain to suggest acute abdominal process. I spoke with Dr. Hector of Dr. Mcgrath's group, who recommended holding lisinopril, observation with gentle fluid hydration, and recheck of the creatinine. He does not have recommendations on the dofetilide, and states that this could be checked with patient's delivery table operator if his creatinine is not improving. They agree with renal US. Patient continues to be well-appearing and asymptomatic on repeat examination. He agrees with the plan for admission. Patient was placed in observation under the care of Dr. Chadwick, please refer to their notes for further hospital course. Departure - Departure Disposition: ED Place in Observation Clinical Impression: ILEANA (acute kidney injury) Condition: Good Discharge Date/Time: 04/13/19 00:30
[2019-04-12 21:40] LABS: ALBUMIN 4.3 g/dL (3.2-5.5); ALBUMIN/GLOBULIN RATIO 1.4 (1.0-2.2); BILIRUBIN,TOTAL 0.3 mg/dL (0.2-1.0); CALCIUM 9.5 mg/dL (8.5-10.3); TOTAL PROTEIN 7.4 g/dL (6.7-8.2)
[2019-04-12 22:12] LABS: BILIRUBIN,URINE NEGATIVE (NEGATIVE); GLUCOSE, URINE (UA) NEGATIVE (NEGATIVE); KETONES,URINE (UA) NEGATIVE (NEGATIVE); LEUKOCYTE ESTERASE, URINE NEGATIVE (NEGATIVE); NITRITE,URINE NEGATIVE (NEGATIVE); OCCULT BLOOD,URINE SMALL (NEGATIVE); PH,URINE 5.5 PH (5.0-7.5); PROTEIN,URINE NEGATIVE (NEGATIVE); UROBILINOGEN,URINE 0.2 (NORMAL) E.U./dL (NORMAL)
[2019-04-12 22:15] LABS: CLARITY,URINE CLEAR (CLEAR)
[2019-04-12 22:26] LABS: BACTERIA,URINE None Seen /HPF (None Seen); CASTS, URINE 0-2 Hyaline Casts /LPF; RBC,URINE 0-5 /HPF (0-5); SQUAMOUS EPITHELIAL CELL,UR NONE SEEN (<= Few)
[2019-04-12] MEDS ORDERED: SODIUM CHLORIDE FLUSH 0.9% 10 ML SYRINGE IVP PRN (23:03)
[2019-04-12] MEDS ORDERED: DEXTROSE 5%-0.9% NACL 1,000 ML IV SCH (23:45)
--- NOTE | 2019-04-13 00:19 | HISTORY & PHYSICAL EXAMINATION ---
Chief Complaint - Chief Complaint Chief Complaint: acute kidney injury History of Present Illness - Admitted From Admitted From:: [facility] - History Obtained From Records Reviewed: yes History obtained from: patient - History of Present Illness HPI Comment/Other: Patient seen on 04/12/19 around 23:00pm Patient is an 83 y/o male with significant cardiac history including CAD with stents, atrial fibrillation on Tikosyn and eliquis and CHF on lasix 80mg daily who presented to the ED at the request of his silk screen frame assembler's office for abnormal labs. As a result of being on Tikosyn, he gets lab work done every 6 months. On a routine lab done on 04/12/19, he was found to have a creatinine of 3.0. Usually he has a baseline creatinine around 1.4. As a result he was advised to present to the ED for evaluation. It was a typical day for him and he denies having any symptoms. He denies chest pain, dyspnea on exertion, abd pain, nausea, vomiting, fever or chills. He denies dizziness or light-headedness. He does not have any lower extremity edema. He states that he is not very mindful of having adequate fluid intake. His silk screen frame assembler is Dr Chance and his manager construction id Dr Vergara. He had a renal ultrasound done on 03/13/19 which was unremarkable. History - Past Medical History Cardiovascular: reports: Hypertension, High cholesterol, Atrial fibrillation Respiratory: reports: Asthma Endocrine/Autoimmune: reports: None GI: reports: GERD, Hemorrhoids, Diverticulitis : reports: Kidney stones HEENT: reports: None Psych: reports: None Musculoskeletal: reports: Osteoarthritis, Gout, Chronic back pain Derm: reports: None MRSA Hx?: No - Past Surgical History General: reports: Colonoscopy, EGD Ortho: reports: Hip replacement, Spine surgery Cardiovascular: reports: Coronary stent, Other HEENT: reports: Cataracts, Tonsil/Adenoidectomy - Family & Social History Family History Comment/Other: mother: at age 62 from complications of aplastic anemia. father: at 83 from complications of alcoholic liver disease, heart disease and prostate cancer. Has 2 sisters. the youngest had breast cancer. He has 3 sons who are completely healthy Living arrangement: At home Social History Notes: He used to drink but stopped after his silk screen frame assembler told him it could be contributing to his atrial fibrillation with RVR in 2017. He did not have any problems with withdrawal. He smoked 1ppd from 1951 to 1981. He denied illicit drug use. His father was in the and he lived all over as a result. 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 He then spent 30 years in [place], [place]. He returned to [facility] about 5 years ago to be close to one of his sons who is in the [place]. He is service connected and disabled at 40% - POLST Patient has POLST: No POLST Status: Full Code Meds/Allgy - Home Medications Home Medications: Ambulatory Orders Medication Instructions Recorded Confirmed Apixaban [Eliquis] 2.5 - 5 mg PO BID 04/23/16 09/27/18 Esomeprazole Magnesium [Nexium] 20 mg PO QDDINNER 04/23/16 09/26/18 Simvastatin 20 mg PO QPM 04/23/16 09/26/18 Fluticasone 110 Mcg [Flovent] 1 puffs INH BID 07/26/16 09/26/18 Fluticasone [Flonase] 1 sprays KRISHNA BID PRN 07/26/16 09/26/18 Metoprolol Succinate 50 mg PO DAILY 07/26/16 09/26/18 guaiFENesin/CODEINE [Robitussin AC] 5 ml PO Q6HR PRN #120 udc 07/28/16 09/26/18 Dofetilide [Tikosyn] 1 tab ORAL BID 09/26/18 09/26/18 Furosemide [Lasix] 80 mg pe ORAL DAILY 09/26/18 09/26/18 Lisinopril 20 mg ORAL DAILY 09/26/18 09/26/18 Albuterol 2.5 mg NEB Q4H PRN 09/27/18 09/27/18 Albuterol Sulfate [Albuterol 2 puffs INH Q4H PRN 09/27/18 09/27/18 Sulfate Hfa] Allopurinol [Zyloprim] 200 mg PO DAILY #30 tablet 10/02/18 Fluticasone/Salmeterol [Advair 1 each IH BID #1 blst.w.dev 10/02/18 100-50 Diskus] Folic Acid 1 mg PO DAILY #30 tablet 10/02/18 Levofloxacin [Levaquin] 750 mg PO Q2D #3 tablet 10/02/18 Magnesium Oxide [Magnesium] 400 mg PO DAILY #100 capsule 10/02/18 Methylprednisolone [Medrol] 4 mg PO DAILY #1 tab.ds.pk 10/02/18 Multivitamin with Iron [One Daily 1 each PO DAILY #100 tablet 10/02/18 with Iron] Doxycycline Hyclate 100 mg PO BID 7 Days capsule 02/25/19 - Allergies Allergies/Adverse Reactions: Allergies Allergy/AdvReac Type Severity Reaction Status Date / Time diltiazem HCl * Allergy Unknown Verified 04/12/19 20:55 [From Cardizem] Sulfa (Sulfonamide Allergy Anaphylaxis Verified 04/12/19 20:55 Antibiotics) Review of Systems - Constitutional Constitutional: denies: Fever, Chills, Weakness - Eyes Eyes: denies: Blurred vision, Vision loss, Dipolpia - Ears, Nose & Throat Ears, Nose & Throat: denies: Vertigo, Sore throat, Hoarseness - Cardiovascular Cariovascular: reports: Irregular heart rate. denies: Chest pain, Edema, Lightheadedness, Syncope, Exertional dyspnea - Respiratory Respiratory: denies: Cough, Sputum production, Wheezing, Orthopnea, SOB at rest, SOB with exertion - Gastrointestinal Gastrointestinal: denies: Abdominal pain, Abdominal distention, Constipation, Diarrhea, Nausea, Vomiting - Genitourinary Genitourinary: denies: Dysuria, Frequency, Urgency, Hematuria, Incontinence - Musculoskeletal Musculoskeletal: denies: Muscle pain, Back pain - Integumentary Integumentary: denies: Rash, Pruritis, Lesions - Neurological Neurological: denies: General weakness, Focal weakness, Headache, Dizziness - Psychiatric Psychiatric: denies: Depression, Anxiety - Endocrine Endocrine: denies: Polyuria, Polydypsia - Hematologic/Lymphatic Hematologic/Lymphatic: denies: Anemia, Bruising, Petechiae Prior Level of Functionality: He is independent of activities of daily living Exam - Vital Signs Vital Signs: Vital Signs x48h Temp Pulse Resp BP Pulse Ox 04/13/19 00:11 79 18 131/87 H 81 L 04/12/19 20:55 36.6 C 80 16 130/88 H 96 - Physical Exam General Appearance: positive: No acute distress, Alert. negative: Lethargic Eyes Bilateral: positive: Normal inspection, PERRL, EOMI ENT: positive: ENT inspection nml Neck: positive: Nml inspection, No JVD, Trachea midline Respiratory: positive: Chest non-tender, No respiratory distress, Breath sounds nml. negative: Wheezes, Rales, Rhonchi Cardiovascular: positive: Regular rate & rhythm. negative: No murmur, No gallop Abdomen: positive: Non-tender, No organomegaly, Nml bowel sounds, No distention Back: positive: Nml inspection Skin: positive: Color nml, No rash, Warm, Dry Extremities: positive: Non-tender, Full ROM, No pedal edema Neurologic/Psychiatric: positive: Oriented x3, CN's nml (2-12), Motor nml, Sensation nml, Mood/affect nml Conclusion/Plan - Problem List (1) ILEANA (acute kidney injury) Conclusion/Plan: Likely pre-renal,2/2 Dehydration Will hold lasix and lisinopril Will hydrate patient. Expect improvement with am labs. If not, will consider a renal ultrasound (2) Atrial fibrillation Conclusion/Plan: On eliquis, Tikosyn and metoprolol Rate controlled (3) Hypertension Conclusion/Plan: On metoprolol. Lisinopril currently held (4) CHF (congestive heart failure) Conclusion/Plan: Not in exacerbation Lasix and lisinopril held Continue metoprolol (5) Gout Conclusion/Plan: On allopurinol (6) Hyperlipidemia Conclusion/Plan: On simvastatin (7) GERD (gastroesophageal reflux disease) Conclusion/Plan: Protonix ordered - Lab Results Fish Bones: 04/12/19 21:21 04/12/19 21:21 Core Measures - Anticipated LOS I expect patient to be DC'd or transferred within 96 hours.: Yes - DVT/VTE - Prophylaxis VTE/DVT Device ordered at admit?: Yes
[2019-04-13] MEDS: SODIUM CHLORIDE FLUSH 0.9% 10 ML SYRINGE IVP SCH ×3 (00:59→17:40)
[2019-04-13] MEDS: SODIUM CHLORIDE 0.9% 1,000 ML IV SCH ×2 (03:00→12:41)
[2019-04-13 04:56] LABS: BASOPHILS # (AUTO) 0.1 10^3/uL (0.0-0.1); BASOPHILS % (AUTO) 1.1 %; EOSINOPHILS # (AUTO) 0.5 10^3/uL (0.0-0.7); HGB - HEMOGLOBIN 10.9 g/dL (14.0-18.0); LYMPHOCYTES # (AUTO) 1.3 10^3/uL (1.5-3.5); LYMPHOCYTES % (AUTO) 17.6 %; MEAN CORPUSCULAR HEMOGLOBIN 27.5 pg (27.0-31.0); MEAN CORPUSCULAR HGB CONC 30.6 g/dL (32.0-36.0); MEAN CORPUSCULAR VOLUME 89.7 fL (80.0-94.0); MEAN PLATELET VOLUME 9.9 fL (7.4-11.4); MONOCYTES # (AUTO) 0.7 10^3/uL (0.0-1.0); MONOCYTES % (AUTO) 9.5 %; NEUTROPHILS # (AUTO) 4.7 10^3/uL (1.5-6.6); NEUTROPHILS % (AUTO) 63.8 %; PLT - PLATELET COUNT 203 10^3/uL (130-450); RED BLOOD COUNT 3.97 10^6/uL (4.70-6.10); RED CELL DISTRIBUTION WIDTH 17.6 % (12.0-15.0); WHITE BLOOD COUNT 7.4 x10^3/uL (4.8-10.8)
[2019-04-13 05:05] LABS: CALCIUM 9.2 mg/dL (8.5-10.3); CREATININE 2.5 mg/dL (0.6-1.2)
[2019-04-13] MEDS ORDERED: PANTOPRAZOLE 40 MG TABLET PO SCH (07:00)
[2019-04-13] MEDS ORDERED: POLYETHYLENE GLYCOL 3350 17 GM PACKET PO SCH (09:00)
[2019-04-13] MEDS ORDERED: DOFETILIDE 125 MCG PO SCH (09:00)
[2019-04-13] MEDS ORDERED: FLUTICASONE INH SCH (10:00)
[2019-04-13] MEDS ORDERED: APIXABAN 2.5 MG TABLET PO SCH (10:00)
[2019-04-13] MEDS ORDERED: ALLOPURINOL 100 MG TABLET PO SCH (10:00)
[2019-04-13] MEDS ORDERED: SALMETEROL INH SCH (10:00)
[2019-04-13] MEDS ORDERED: METOPROLOL SUCCINATE 50 MG TABLET PO SCH (10:00)
[2019-04-13] MEDS ORDERED: IPRATROPIUM/ALBUTEROL 3 ML NEB INH PRN (11:00)
[2019-04-13 16:23] VITALS: BP 131/77
[2019-04-13 17:01] LABS: CALCIUM 9.5 mg/dL (8.5-10.3); CREATININE 1.8 mg/dL (0.6-1.2)
--- NOTE | 2019-04-13 19:30 | Discharge Plan ---
Discharge Plan Problem Reviewed?: Yes Disposition: Home, Self Care Condition: Stable Diet: Cardiac Activity Restrictions: Activity as Tolerated Shower Restrictions: No Driving Restrictions: No Health Concerns: Acute Kidney Injury You were in the hospital for acute kidney injury which was likely due to dehydration from low fluid intake. Your lasix and lisinopril were held while we gave you IV fluids (normal saline). Your renal function improved. We are discharging you with no changes to your home medication. We advise to keep adequately hydrated daily. This is about 3.5L of fluids daily Plan of Treatment: Your lasix and lisinopril were held while we gave you IV fluids (normal saline). Your renal function improved. We are discharging you with no changes to your home medication. Care Goals: Follow up with you primary care doctor within 5 days for a repeat BMP to make sure your kidney number (GFR and creatinine) and still improved. Assessment: Patient expresses understanding of the treatment plan and also understands what the goals are. No Smoking: If you smoke, Please STOP! Call for help. Follow-up with: Christine Rose PA [Primary Care Provider] -
--- NOTE | 2019-04-13 20:09 | DISCHARGE SUMMARY ---
Discharge Summary Admit Date: 04/12/19 Discharge Date: 04/13/19 Discharging Provider: Inés Chadwick Primary Care Provider: Christine Rose Code Status: Attempt Resuscitation Condition at Discharge: Stable Discharge Disposition: 01 Home, Self Care Discharge Facility [facility]: [facility] - DIAGNOSES Admission Diagnoses: 1. Acute Kidney Injury 2. Atrial fibrillation 3. Hypertension 4. CHF 5. Gout 6. Hyperlipidemia 7. GERD Discharge Diagnoses with Status of Each Condition: 1. Acute Kidney Injury: Improved 2. Atrial fibrillation: Stable. Chronic 3. Hypertension: Stable. Chronic 4. CHF: Stable. Chronic 5. Gout: Stable. Chronic 6. Hyperlipidemia. Chronic 7. GERD: Chronic - HPI History of Present Illness: Patient is an 83 y/o male with significant cardiac history including CAD with stents, atrial fibrillation on Tikosyn and eliquis and CHF on lasix 80mg daily who presented to the ED at the request of his terrazzo polisher helper's office for abnormal labs. As a result of being on Tikosyn, he gets lab work done every 6 months. On a routine lab done on 04/12/19, he was found to have a creatinine of 3.0. Usually he has a baseline creatinine around 1.4. As a result he was advised to present to the ED for evaluation. It was a typical day for him and he denies having any symptoms. He denies chest pain, dyspnea on exertion, abd pain, nausea, vomiting, fever or chills. He denies dizziness or light-headedness. He does not have any lower extremity edema. He states that he is not very mindful of having adequate fluid intake. His terrazzo polisher helper is Dr Chance and his tap grinder id Dr Vergara. He had a renal ultrasound done on 03/13/19 which was unremarkable. - HOSPITAL COURSE Hospital Course: Patient was maintained on Normal saline (IV hydration). During this time, his lasix and lisinopril were held. His renal function improved markedly. His Creatinine went from 3.0 to 2.5 to 1.8. His baseline creatinine is around 1.4 He had no acute issue arise through the day. He was discharged with all his medications resumed He was advised to keep adequately hydrated daily Approximately 3.5L fluids daily He is to follow up with his PCP within 5 days, during which he will have a BMP rechecked - ALLERGIES Allergies/Adverse Reactions: Allergies Allergy/AdvReac Type Severity Reaction Status Date / Time diltiazem HCl * Allergy Unknown Verified 04/12/19 20:55 [From Cardizem] Sulfa (Sulfonamide Allergy Anaphylaxis Verified 04/12/19 20:55 Antibiotics) - MEDICATIONS Home Medications: Ambulatory Orders Medication Instructions Recorded Confirmed Simvastatin 20 mg PO QPM 04/23/16 04/13/19 Metoprolol Succinate 50 mg PO BID 07/26/16 04/13/19 Dofetilide [Tikosyn] 125 mcg PO Q12H 09/26/18 04/13/19 Furosemide [Lasix] 80 mg PO DAILY 09/26/18 04/13/19 Lisinopril 20 mg PO QPM 09/26/18 04/13/19 Albuterol Sulfate [Albuterol 2 puffs INH Q4H PRN 09/27/18 04/13/19 Sulfate Hfa] Allopurinol 300 mg PO DAILY 04/13/19 04/13/19 Apixaban [Eliquis] 2.5 mg PO BID 04/13/19 04/13/19 Fluticasone/Salmeterol [Advair 1 puffs INH BID 04/13/19 04/13/19 100-50 Diskus] Ipratropium/Albuterol [Duoneb] 3 ml INH QID PRN 04/13/19 04/13/19 Pantoprazole Sodium [Protonix] 20 mg PO QPM 04/13/19 04/13/19 Potassium Chloride 20 meq PO DAILY 04/13/19 04/13/19 - PHYSICAL EXAM AT DISCHARGE General Appearance: positive: No acute distress, Alert. negative: Anxious, Lethargic Eyes Bilateral: positive: Normal inspection, PERRL, EOMI ENT: positive: ENT inspection nml Neck: positive: Nml inspection, No JVD, Trachea midline Respiratory: positive: Chest non-tender, No respiratory distress, Breath sounds nml. negative: Wheezes, Rales, Rhonchi Cardiovascular: positive: Irregularly irregular Abdomen: positive: Non-tender, No organomegaly, Nml bowel sounds. negative: Guarding, Rebound Back: positive: Nml inspection Skin: positive: Color nml, No rash Extremities: positive: Non-tender, No pedal edema Neurologic/Psychiatric: positive: Oriented x3, Mood/affect nml - LABS Result Diagrams: 04/13/19 04:50 04/13/19 16:50 - QUALITY (Female Hip Fx Only) Was patient sent home on osteoporosis medication?: No - FOLLOW UP Follow Up: With Christine Rose within 5 days - TIME SPENT Time Spent in Discharge (Minutes): 31
== END 2019-04-13 19:53 | disposition home or self-care (01) ==
LOC: ED 20:49 → MS2 23:03
PROVIDERS: ADMIT Internal Medicine; ATTEND Internal Medicine
DX: N17.9 Acute kidney failure, unspecified (principal); I48.91 Unspecified atrial fibrillation; I11.0 Hypertensive heart disease with heart failure; I50.9 Heart failure, unspecified; M10.9 Gout, unspecified; E78.5 Hyperlipidemia, unspecified; K21.9 Gastro-esophageal reflux disease without esophagitis; I25.10 Atherosclerotic heart disease of native coronary artery without angina pectoris; M19.90 Unspecified osteoarthritis, unspecified site; G89.29 Other chronic pain; M54.9 Dorsalgia, unspecified; Z79.51 Long term (current) use of inhaled steroids; Z79.01 Long term (current) use of anticoagulants; Z87.891 Personal history of nicotine dependence; Z95.5 Presence of coronary angioplasty implant and graft; Z96.649 Presence of unspecified artificial hip joint; Z87.442 Personal history of urinary calculi; Z87.19 Personal history of other diseases of the digestive system; Z51.81 Encounter for therapeutic drug level monitoring; Z79.899 Other long term (current) drug therapy
CPT/HCPCS: 36415; 80048; 80053; 81001; 83690; 85025; 96360; 96361; 99284; 99285; A9270; G0378; 81003; 87086

== ENCOUNTER 2019-04-16 08:00 | Outpatient (CLI) | payer MEDICARE, OTHER ==
[2019-04-16 19:30] LABS: CALCIUM 9.5 mg/dL (8.5-10.3); CREATININE 1.8 mg/dL (0.6-1.2)
== END 2019-04-16 23:59 | disposition home or self-care (01) ==
LOC: LAB.WCP 08:00
PROVIDERS: ATTEND Physician Assistant
DX: E21.3 Hyperparathyroidism, unspecified (principal); I10 Essential (primary) hypertension
CPT/HCPCS: 36415; 80048; 83970

== ENCOUNTER 2019-04-30 07:00 | Outpatient (CLI) | payer MEDICARE, OTHER ==
[2019-04-30 19:48] LABS: CALCIUM 9.5 mg/dL (8.5-10.3)
== END 2019-04-30 23:59 | disposition home or self-care (01) ==
LOC: LAB.WCP 07:00
PROVIDERS: ATTEND Physician Assistant
DX: E87.6 Hypokalemia (principal)
CPT/HCPCS: 36415; 80048

== ENCOUNTER 2019-05-31 11:00 | Outpatient (CLI) | payer MEDICARE, OTHER ==
[2019-05-31 18:58] LABS: CALCIUM 9.8 mg/dL (8.5-10.3); CREATININE 2.1 mg/dL (0.6-1.2)
== END 2019-05-31 23:59 | disposition home or self-care (01) ==
LOC: LAB.WCP 11:00
PROVIDERS: ATTEND Nurse Practitioner Family
DX: Z51.81 Encounter for therapeutic drug level monitoring (principal); Z79.899 Other long term (current) drug therapy
CPT/HCPCS: 36415; 80048

== ENCOUNTER 2019-06-05 13:43 | Outpatient (CLI) | payer MEDICARE, OTHER ==
--- NOTE | 2019-06-05 15:02 | SLEEP CARE CONSULTATION ---
Information from patient questionnaire entered by Milana Chambers. I have reviewed and concur with the information entered by Milana Chambers. This document represents the service I personally performed and the decisions made by me, Georgina Antunez, RN, MSN, EMERGENCY SERVICES DISPATCHER. History of Present Illness Previous diagnosis: Severe, Obstructive Sleep Apnea-Hypopnea Syndrome AHI: 38 Reason for follow up: annual (last seen 2018) Equipment type: CPAP Equipment obtained from: [facility] (having difficulty getting supplies and would like to transfer .) Mask style: Nasal (Dreamwear) Mask brand: Respironics Backup mask available: Yes Last cushion change: a few days ago HPI additional information: last year unexpectedly. [place] property with son and daughter in law. CPAP Compliance Data - Data Reviewed with Patient Average duration of nightly device use: 8.65 Compliance rate %: 98.9 (180 days) Current pressure setting (cmH2O): 7 Humidity settin Heated hose settin Average residual AHI: 2.3 Average large leak: 1 min 35 sec Subjective Patient concerns: reports: mask leak noise (nightly from mask dislodging). denies: aerophagia, mask discomfort, air blowing in eyes, condensation in mask/hose, nasal congestion, dry mouth, nose, throat, epistaxis Observed to snore while using device: No Current pressure setting perceived as: comfortable On therapy, patient: reports: sleeping better, awakening more refreshed, being more awake and alert during the day, more rested overall. denies: drowsiness while driving Initial [place] Sleepiness Scale score: 10 Current [place] Sleepiness Scale score: 8 Allergies and Home Medications Known drug allergies: Yes Home medication list reviewed: Yes Allergy and home medication list: Flovent HFA 10 mcg/act aerosol Inhale one actuation twice daily Pantoprazole Sodium delayed release 20mg tab one daily Simvastatin 20mg tab one daily at bedtime Proventil HFA 108 990 base) mcg/act Inhale two actuations q3-4hrs, prn Eliquis 2.5mg tab one twice daily Lopressor (Metoprolol Tartrate) 50mg tab one twice daily Ipatropium-Albuterol 0.5-2.5 mg/3ml Use one ampule in nebulizer QID, prn Lisinopril 20mg tab one daily Lasix (Furosemide) 80mg tab one daily in the morning Tikosyn .125mcg cap one twice daily Flonase Allergy Relief 50mcg/act One spray each nostril twice daily Review of Systems Review of systems same as previous: No (Chronic cough spasm 3 mo- seeing pulmnologist - tests started. ) Physical Exam Blood Pressure: 94/60 Cuff size: long Heart Rate: 75 O2 Saturation: 96 Height: 6 ft Weight: 253 lb 9.6 oz Weight change since last visit: gained 11 pounds Body Mass Index: 34.4 BMI Classification: Obesity Class 1 Impression and Plan 1. Obstructive Sleep Apnea-Hypopnea Syndrome, severe , with good treatment compliance and good apnea control. On CPAP therapy, the patient has better sleep quality and is more rested overall. For supply concerns, I will transfer him to a new DME. I will have intermission coordinator inform him of his options, 2 have RT to come to home for his convenience. All send equipment to home. I will add a headgear adaptor to reduce mask dislodging. He can try a low humidity setting to see if it will reduce his post nasal drainage that he feels can cause tickle in throat and cough. He stopped using his humidifier when was traveling so would not need the water. I reviewed how to change settings and rationale for adjusting. Web printout instructions also given. I encouraged him also to get his new inhaler today to assist control his cough spasm symptoms. Patient's apnea severity and rationale for treatment to reduce apnea, improve sleep quality and reduce cardiovascular and cerebrovascular events was reviewed. I also reviewed the benefit of consistent device use of CPAP for hypertension, arrhythmia, diabetes, gastric reflux. * Continue CPAP pressure at 7 cmH2O * transfer to new DME * headgear adaptor * try humidity * Notify me if snoring with mask or feeling that the pressure is too much or too little * Attempt to lose weight * Return for follow up in 1 year , or sooner if concerns arise I spent 100% of this 35 minute visit face to face with the patient with greater than 50% of this was spent time counseling the patient and coordination of care.
[2019-06-05 15:03] VITALS: BP 94/60
== END 2019-06-05 13:44 | disposition home or self-care (01) ==
LOC: SC 13:43
PROVIDERS: ATTEND Nurse Practitioner Family
DX: G47.33 Obstructive sleep apnea (adult) (pediatric) (principal); E66.9 Obesity, unspecified; Z68.34 Body mass index [BMI] 34.0-34.9, adult
CPT/HCPCS: 99214; G0463; 99212

== ENCOUNTER 2019-06-19 10:53 | Outpatient (CLI) | payer MEDICARE, OTHER ==
--- NOTE | 2019-06-19 15:27 | CT Report ---
Reason: CHRONIC SINUSITIS Procedure Date: 06/19/2019 Accession Number: [id number] / [id number] Procedure: CT - Sinuses CPT Code: Final Report FULL RESULT: EXAM: CT SINUS EXAM DATE: 06/19/2019 11:35 AM. HISTORY: 84-year-old male. CHRONIC SINUSITIS. COMPARISONS: None. TECHNIQUE: Routine multi-axial CT imaging performed through the sinuses. Iodinated IV contrast: None. Reconstructions: Multiplanar reformats. In accordance with CT protocol optimization, one or more of the following dose reduction techniques were utilized for this exam: automated exposure control, adjustment of mA and/or KV based on patient size, or use of iterative reconstructive technique. FINDINGS: RIGHT Frontal: Normal. Ethmoid: Mild mucosal thickening Maxillary: Minimal mucosal thickening. Sphenoid: Normal. Drainage Pathways: The frontal recess, ostiomeatal complex and sphenoethmoidal recess are patent and normal. LEFT Frontal: Normal. Ethmoid: Normal. Maxillary: Minimal mucosal thickening. Sphenoid: Mild mucosal thickening Drainage Pathways: The frontal recess, ostiomeatal complex and sphenoethmoidal recess are patent and normal. Nasal Cavity: Normal. No mass or significant anatomic abnormality evident. Osseous Structures: Unremarkable. Orbits: Unremarkable. Other: Moderate opacification of the right mastoid air cells per the left mastoid air cells are clear. IMPRESSION: 1. No evidence of acute sinusitis. Mild mucosal thickening of the right sided ethmoid air cells, mild mucosal thickening of the left sphenoid sinus, and minimal mucosal thickening of the maxillary sinuses bilaterally. 2. The drainage pathways bilaterally are patent. RADIA
== END 2019-06-19 10:54 | disposition home or self-care (01) ==
LOC: DI 10:53
PROVIDERS: ATTEND Physician Assistant
DX: J32.8 Other chronic sinusitis (principal)
CPT/HCPCS: 70486

== ENCOUNTER 2019-07-22 12:10 | Outpatient (CLI) | payer MEDICARE, OTHER ==
--- NOTE | 2019-07-22 17:53 | XRAY Report ---
Reason: SHORTNESS OF BREATH Procedure Date: 07/22/2019 Accession Number: [id number] / [id number] Procedure: WCP - Chest 2 View X-Ray CPT Code: 88524 Final Report FULL RESULT: EXAM: CHEST RADIOGRAPHY EXAM DATE: 07/22/2019 12:10 PM. CLINICAL HISTORY: SHORTNESS OF BREATH. COMPARISON: CHEST 2 VIEW 03/19/2019 3:08 PM CHEST W/O 03/26/2019 1:32 PM. TECHNIQUE: 2 views. FINDINGS: Lungs/Pleura: Hyperexpanded with flattened diaphragms typical for COPD. Bibasilar atelectasis versus infiltrates similar to previous exam, left perhaps more than right. Clear mid and upper lung zones. No effusion or pneumothorax. Mediastinum: Heart and mediastinal contours are unremarkable. Upper lobe vessels not distended. Other: Degenerative changes. Permanent pacemaker on the left. IMPRESSION: No definite significant interval change. RADIA
== END 2019-07-22 23:59 | disposition home or self-care (01) ==
LOC: DI.WCP 12:10
PROVIDERS: ATTEND Physician Assistant
DX: R06.02 Shortness of breath (principal)
CPT/HCPCS: 71046

== ENCOUNTER 2019-08-30 14:21 | Outpatient (CLI) | payer MEDICARE, OTHER ==
[2019-08-30 18:35] LABS: BASOPHILS % (AUTO) 0.5 %; EOSINOPHILS % (AUTO) 5.9 %; HGB - HEMOGLOBIN 11.4 g/dL (14.0-18.0); MEAN CORPUSCULAR HEMOGLOBIN 29.3 pg (27.0-31.0); MEAN CORPUSCULAR HGB CONC 29.6 g/dL (32.0-36.0); MEAN PLATELET VOLUME 11.4 fL (7.4-11.4); MONOCYTES % (AUTO) 7.8 %; PLT - PLATELET COUNT 230 10^3/uL (130-450); RED BLOOD COUNT 3.89 10^6/uL (4.70-6.10)
[2019-08-30 18:51] LABS: ALBUMIN 3.9 g/dL (3.2-5.5); ALBUMIN/GLOBULIN RATIO 1.6 (1.0-2.2); BILIRUBIN,TOTAL 0.3 mg/dL (0.2-1.0); CALCIUM 9.2 mg/dL (8.5-10.3); CREATININE 1.3 mg/dL (0.6-1.2); TOTAL PROTEIN 6.4 g/dL (6.7-8.2)
[2019-08-30 19:04] LABS: ABNORMAL LYMPHS % (MANUAL) 0 %
[2019-08-30 20:20] LABS: BAND NEUTROPHILS % (MANUAL) 2 %; BASOPHILS # (MANUAL) 0.1 10^3/uL (0-0.1); BASOPHILS % (MANUAL) 1 %; EOSINOPHILS # (MANUAL) 0.7 10^3/uL (0-0.7); LYMPHOCYTES # (MANUAL) 2.5 10^3/uL (1.5-3.5); LYMPHOCYTES % (MANUAL) 19 %; MONOCYTES # (MANUAL) 1.4 10^3/uL (0.0-1.0)
[2019-08-30 20:21] LABS: DIFFERENTIAL COMMENT MANUAL DIFFERENTIAL; PLATELET ESTIMATE, MANUAL NORMAL (130-450,000) (NORMAL); PLATELET MORPHOLOGY NORMAL APPEARANCE (NORMAL); RBC MORPHOLOGY (MULTIPLE) 3+ MACROCYTOSIS (NORMAL)
== END 2019-08-30 23:59 | disposition home or self-care (01) ==
LOC: LAB.WCP 14:21
PROVIDERS: ATTEND Physician Assistant
DX: Z79.899 Other long term (current) drug therapy (principal)
CPT/HCPCS: 36415; 80053; 85025

== ENCOUNTER 2019-11-08 07:00 | Outpatient (CLI) | payer MEDICARE, OTHER ==
[2019-11-08 13:21] LABS: CALCIUM 9.7 mg/dL (8.5-10.3); CREATININE 1.8 mg/dL (0.6-1.2)
== END 2019-11-08 23:59 | disposition home or self-care (01) ==
LOC: LAB.WCP 07:00
PROVIDERS: ATTEND Internal Medicine Nephrology
DX: N05.9 Unspecified nephritic syndrome with unspecified morphologic changes (principal); N18.9 Chronic kidney disease, unspecified
CPT/HCPCS: 36415; 80048

== ENCOUNTER 2019-11-26 10:30 | Outpatient (CLI) | payer MEDICARE, OTHER ==
[2019-11-26 11:11] LABS: CALCIUM 9.3 mg/dL (8.5-10.3); CREATININE 1.7 mg/dL (0.6-1.2)
[2019-11-28 11:24] LABS: ANA SCREEN NEGATIVE (NEGATIVE)
[2019-11-28 13:50] LABS: COMPLEMENT COMPONENT C3C 116 mg/dL; COMPLEMENT COMPONENT C4C 30 mg/dL
== END 2019-11-26 10:31 | disposition home or self-care (01) ==
LOC: LAB 10:30
PROVIDERS: ATTEND Internal Medicine Nephrology
DX: L93.2 Other local lupus erythematosus (principal); I77.6 Arteritis, unspecified; N05.9 Unspecified nephritic syndrome with unspecified morphologic changes; D47.2 Monoclonal gammopathy
CPT/HCPCS: 36415; 80048; 81599; 82570; 84155; 84156; 84165; 84166; 86021; 86038; 86160; 86334; 86335

== ENCOUNTER 2019-12-19 12:14 | Outpatient (CLI) | payer MEDICARE, OTHER ==
[2019-12-19 12:44] LABS: CREATININE 1.8 mg/dL (0.6-1.2)
== END 2019-12-19 12:15 | disposition home or self-care (01) ==
LOC: LAB 12:14
PROVIDERS: ATTEND Internal Medicine Nephrology
DX: N05.9 Unspecified nephritic syndrome with unspecified morphologic changes (principal)
CPT/HCPCS: 36415; 82565

== ENCOUNTER 2020-01-21 12:16 | Outpatient (CLI) | payer MEDICARE, OTHER | END 2020-01-21 12:17 | disposition home or self-care (01) | LOC: LAB 12:16 | PROVIDERS: ATTEND Internal Medicine Nephrology | DX: L93.2 Other local lupus erythematosus (principal); I77.6 Arteritis, unspecified; N05.9 Unspecified nephritic syndrome with unspecified morphologic changes; D47.2 Monoclonal gammopathy; Z53.9 Procedure and treatment not carried out, unspecified reason | CPT/HCPCS: 36415; 80048; 81599; 86038; 86160 ==

== ENCOUNTER 2020-01-27 10:43 | Outpatient (CLI) | payer MEDICARE, OTHER ==
--- NOTE | 2020-01-27 12:51 | CT Report ---
PROCEDURE: LUMBAR SPINE WO INDICATIONS: LUMBAR BACK PAIN TECHNIQUE: Noncontrast 3 mm thick sections acquired from the T12 level to the sacrum. Sagittal and coronal refo rmats were constructed. For radiation dose reduction, the following was used: automated exposure co ntrol, adjustment of mA and/or kV according to patient size. COMPARISON: Correlation is made with lumbar MRI 12/30/2016. FINDINGS: Image quality: Excellent. Bones: No acute vertebral body compression fractures. No suspicious lytic or blastic bony lesions. Central spinal caliber is of normal overall caliber. No pars defects. S-shaped scoliotic curvature is incidentally noted. Mild grade 1 anterolisthesis is seen at L4-L5. T here is minimal retrolisthesis seen at L2-L3. Minimal retrolisthesis is seen at L5-S1. Postoperative changes are seen, with bilateral pedicle screws L3-L5. The screws appear well placed. V ertical fixation rods are seen. Disc spacers are seen at L3-L4 and L4-L5. No findings of hardware felipe lure or hardware loosening can be seen. There has been removal of portions of the posterior elements. Bone grafting material is seen. T10-T11: Moderate loss of disc height is seen. Prominent calcification/ossification can be seen along the disc level. Bridging anterior osteophytes can be seen on the right. Moderate bilateral neural f oraminal narrowing is seen. Mild to moderate central canal narrowing is seen. T11-T12: Moderate loss of disc height is seen. There is calcification seen along the disc level. Mode rate mild disc bulge is seen. There is moderate bilateral neuroforaminal narrowing seen, right worse than left. No significant central canal narrowing is seen. T12-L1: Moderate loss of disc height is seen. Calcification can be seen along the disc level. Mild t o moderate disc bulge is seen. Moderate bilateral neural foraminal narrowing is seen. Mild to mode rate central canal narrowing is seen. These degenerative changes have progressed when compared to th e prior examination. L1-L2: Moderate loss of disc height is seen. Prominent, partially bridging anterior osteophytes ar e seen. Moderate disc bulge is seen, with a central disc protrusion. Moderate facet hypertrophy is s een. At least moderate bilateral neuroforaminal narrowing is seen. Moderate to severe central canal narrowing is seen, as on series 3 image 40. These imaging findings are similar to the images of the prior examination. L2-L3: At least moderate loss of disc height is seen. Endplate irregularity and sclerosis can be s een. Bridging anterior osteophytes are seen. At least moderate disc bulge is seen. There is moderat e right-sided and moderate to severe left-sided facet hypertrophy seen. There is moderate right-sided and moderate to severe left-sided neuroforaminal narrowing seen. These degenerative changes have pro gressed when compared to the prior examination. L3-L4: Postoperative changes are seen at this level. Moderate disc bulge is seen. At least moderate facet hypertrophy is seen. No significant neuroforaminal narrowing can be seen. Mild central canal narrowing is seen. These imaging findings are similar to the images of the prior examination. L4-L5: There are postoperative changes seen at this level. Moderate disc bulge is seen. Calcificati on can be seen along the posterior aspect of the annulus fibrosis. There is moderate to severe right- sided and moderate left-sided neuroforaminal narrowing seen. Mild central canal narrowing is seen. These degenerative changes have progressed when compared to the prior examination. L5-S1: The disc height is relatively well preserved. Mild disc bulge is seen. No significant jonathan ral foraminal or central canal narrowing can be seen. These imaging findings are similar to the i mages of the prior examination. Soft tissues: No retroperitoneal masses or hematomas. Visualized aorta is normal in caliber. Pacer leads are seen. IMPRESSION: Unremarkable L3-L5 postoperative hardware. Multiple levels of degenerative change are seen, which are overall mildly progressed compared to the prior 2017 MRI examination. Reviewed by: Mateo Rosenberg MD on 01/27/2020 11:50 AM JABARI Approved by: Mateo Rosenberg MD on 01/27/2020 11:50 AM JABARI Station ID: [id number]
== END 2020-01-27 10:44 | disposition home or self-care (01) ==
LOC: DI 10:43
PROVIDERS: ATTEND Physician Assistant
DX: M54.16 Radiculopathy, lumbar region (principal); M51.34 Other intervertebral disc degeneration, thoracic region; M51.35 Other intervertebral disc degeneration, thoracolumbar region; M51.36 Other intervertebral disc degeneration, lumbar region; M51.26 Other intervertebral disc displacement, lumbar region; M47.814 Spondylosis without myelopathy or radiculopathy, thoracic region; M47.815 Spondylosis without myelopathy or radiculopathy, thoracolumbar region; M47.816 Spondylosis without myelopathy or radiculopathy, lumbar region; M48.04 Spinal stenosis, thoracic region; M48.05 Spinal stenosis, thoracolumbar region; M48.061 Spinal stenosis, lumbar region without neurogenic claudication; M25.78 Osteophyte, vertebrae; Z98.890 Other specified postprocedural states
CPT/HCPCS: 72131

== ENCOUNTER 2020-02-04 07:00 | Outpatient (CLI) | payer MEDICARE, OTHER | END 2020-02-04 23:59 | disposition home or self-care (01) | LOC: LAB.R 07:00 | PROVIDERS: ATTEND Nurse Practitioner Family | DX: L72.3 Sebaceous cyst (principal) | CPT/HCPCS: 87070; 87181; 87205 ==

== ENCOUNTER 2020-03-13 08:00 | Outpatient (CLI) | payer MEDICARE, OTHER ==
[2020-03-13 19:00] LABS: CALCIUM 9.5 mg/dL (8.5-10.3); CREATININE 2.6 mg/dL (0.6-1.2)
== END 2020-03-13 23:59 | disposition home or self-care (01) ==
LOC: LAB.WCP 08:00
PROVIDERS: ATTEND Nurse Practitioner Family
DX: I48.91 Unspecified atrial fibrillation (principal)
CPT/HCPCS: 36415; 80048

== ENCOUNTER 2020-03-19 09:32 | Outpatient (CLI) | payer MEDICARE, OTHER ==
[2020-03-19 09:57] LABS: CREATININE 2.4 mg/dL (0.6-1.2)
== END 2020-03-19 09:33 | disposition home or self-care (01) ==
LOC: LAB 09:32
PROVIDERS: ATTEND Internal Medicine Nephrology
DX: N05.9 Unspecified nephritic syndrome with unspecified morphologic changes (principal)
CPT/HCPCS: 36415; 82565

== ENCOUNTER 2020-03-25 08:00 | Outpatient (CLI) | payer MEDICARE, OTHER ==
[2020-03-25 18:14] LABS: BASOPHILS # (AUTO) 0.1 10^3/uL (0.0-0.1); BASOPHILS % (AUTO) 0.9 %; EOSINOPHILS # (AUTO) 0.4 10^3/uL (0.0-0.7); EOSINOPHILS % (AUTO) 5.1 %; HGB - HEMOGLOBIN 10.8 g/dL (14.0-18.0); LYMPHOCYTES # (AUTO) 0.7 10^3/uL (1.5-3.5); LYMPHOCYTES % (AUTO) 9.4 %; MEAN CORPUSCULAR HEMOGLOBIN 29.2 pg (27.0-31.0); MEAN CORPUSCULAR HGB CONC 30.5 g/dL (32.0-36.0); MEAN CORPUSCULAR VOLUME 95.7 fL (80.0-94.0); MEAN PLATELET VOLUME 10.6 fL (7.4-11.4); MONOCYTES # (AUTO) 0.9 10^3/uL (0.0-1.0); MONOCYTES % (AUTO) 12.1 %; NEUTROPHILS # (AUTO) 5.3 10^3/uL (1.5-6.6); NEUTROPHILS % (AUTO) 69.8 %; PLT - PLATELET COUNT 256 10^3/uL (130-450); RED CELL DISTRIBUTION WIDTH 15.1 % (12.0-15.0); WHITE BLOOD COUNT 7.7 x10^3/uL (4.8-10.8)
[2020-03-25 19:06] LABS: ALBUMIN 3.9 g/dL (3.2-5.5); ALBUMIN/GLOBULIN RATIO 1.3 (1.0-2.2); BILIRUBIN,TOTAL 0.5 mg/dL (0.2-1.0); CALCIUM 9.4 mg/dL (8.5-10.3); CREATININE 2.7 mg/dL (0.6-1.2); TOTAL PROTEIN 6.8 g/dL (6.7-8.2)
== END 2020-03-25 23:59 | disposition home or self-care (01) ==
LOC: LAB.WCP 08:00
PROVIDERS: ATTEND Family Medicine
DX: N18.3 Chronic kidney disease, stage 3 (moderate) (principal)
CPT/HCPCS: 36415; 80053; 85025

== ENCOUNTER 2020-03-30 13:05 | Outpatient (CLI) | payer MEDICARE, OTHER ==
[2020-03-30 13:26] LABS: CALCIUM 10.2 mg/dL (8.5-10.3); CREATININE 1.9 mg/dL (0.6-1.2)
== END 2020-03-30 13:06 | disposition home or self-care (01) ==
LOC: LAB 13:05
PROVIDERS: ATTEND Internal Medicine Nephrology
DX: N05.9 Unspecified nephritic syndrome with unspecified morphologic changes (principal); I50.32 Chronic diastolic (congestive) heart failure
CPT/HCPCS: 36415; 80048; 83880

== ENCOUNTER 2020-04-06 13:16 | Outpatient (CLI) | payer MEDICARE, OTHER ==
[2020-04-06 13:41] LABS: CALCIUM 9.1 mg/dL (8.5-10.3); CREATININE 2.7 mg/dL (0.6-1.2)
== END 2020-04-06 13:17 | disposition home or self-care (01) ==
LOC: LAB 13:16
PROVIDERS: ATTEND Internal Medicine Nephrology
DX: I50.32 Chronic diastolic (congestive) heart failure (principal); N05.9 Unspecified nephritic syndrome with unspecified morphologic changes
CPT/HCPCS: 36415; 80048; 83880

== ENCOUNTER 2020-04-13 10:52 | Outpatient (CLI) | payer MEDICARE, OTHER ==
[2020-04-13 11:07] LABS: CALCIUM 9.3 mg/dL (8.5-10.3); CREATININE 1.4 mg/dL (0.6-1.2)
== END 2020-04-13 10:53 | disposition home or self-care (01) ==
LOC: LAB 10:52
PROVIDERS: ATTEND Internal Medicine Nephrology
DX: N05.9 Unspecified nephritic syndrome with unspecified morphologic changes (principal); I50.32 Chronic diastolic (congestive) heart failure
CPT/HCPCS: 36415; 80048; 83880

== ENCOUNTER 2020-04-20 09:57 | Outpatient (CLI) | payer MEDICARE, OTHER ==
[2020-04-20 10:44] LABS: CALCIUM 9.3 mg/dL (8.5-10.3); CREATININE 1.4 mg/dL (0.6-1.2)
== END 2020-04-20 09:58 | disposition home or self-care (01) ==
LOC: LAB 09:57
PROVIDERS: ATTEND Internal Medicine Nephrology
DX: N05.9 Unspecified nephritic syndrome with unspecified morphologic changes (principal); I50.32 Chronic diastolic (congestive) heart failure
CPT/HCPCS: 36415; 80048; 83880

== ENCOUNTER 2020-05-04 11:11 | Outpatient (CLI) | payer MEDICARE, OTHER ==
[2020-05-04 12:01] LABS: CALCIUM 9.1 mg/dL (8.5-10.3); CREATININE 1.5 mg/dL (0.6-1.2)
== END 2020-05-04 11:12 | disposition home or self-care (01) ==
LOC: LAB 11:11
PROVIDERS: ATTEND Internal Medicine Nephrology
DX: N05.9 Unspecified nephritic syndrome with unspecified morphologic changes (principal); I50.32 Chronic diastolic (congestive) heart failure
CPT/HCPCS: 36415; 80048; 83880

== ENCOUNTER 2020-06-09 09:40 | Outpatient (CLI) | payer MEDICARE, OTHER ==
--- NOTE | 2020-06-09 10:31 | SLEEP CARE CONSULTATION ---
Information from patient questionnaire entered by Milana Chambers. I have reviewed and concur with the information entered by Milana Chambers. This document represents the service I personally performed and the decisions made by , Jaenlle Membreno ARNP. History of Present Illness Service Date and Time: 06/09/2020 0940 Previous diagnosis: Severe, Obstructive Sleep Apnea-Hypopnea Syndrome AHI: 38 (in 2014) Reason for follow up: annual (last seen 05/2019) Equipment type: CPAP Equipment obtained from: [facility] (getting supplie as needed) Mask style: Nasal Mask brand: Respironics (Dreamwear) Backup mask available: Yes (old mask) Last cushion change: 1.5 weeks ago Prior sleep studies: Yes Year and Where: 2014 - [facility] Sleep Type of Sleep Study: Polysomnography HPI additional information: VIVI JUNIOR was diagnosed to have severe, AHI 38, obstructive sleep apnea- hypopnea syndrome and returned today for CPAP therapy annual follow-up. CPAP Compliance Data - Data Reviewed with Patient Average duration of nightly device use: 8 hr 34 min Compliance rate %: 99.4 (180 days) Current pressure setting (cmH2O): 7 Humidity settin Heated hose settin Average residual AHI: 2.6 Average large leak: 10 min 15 sec Subjective Patient concerns: reports: dry mouth, nose, throat (occasional, nothing serious), other (needs head gear arms replaced). denies: aerophagia, mask discomfort, air blowing in eyes, mask leak noise, condensation in mask/hose, nasal congestion, epistaxis Observed to snore while using device: No Current pressure setting perceived as: comfortable On therapy, patient: reports: sleeping better, awakening more refreshed, being more awake and alert during the day, more rested overall. denies: drowsiness while driving Initial [place] Sleepiness Scale score: 10 (in 2014) Current [place] Sleepiness Scale score: 8 Allergies and Home Medications Drug allergies reviewed: Yes (diltiazem, Sulfa) Home medication list reviewed: Yes (some changes) Review of Systems Review of systems same as previous: No (increased bronchitis and COPD) Physical Exam Heart Rate: 69 O2 Saturation: 97 Height: 6 ft Weight: 253 lb Body Mass Index: 34.3 BMI Classification: Obese Impression and Plan 1. Obstructive Sleep Apnea-Hypopnea Syndrome, severe, with good treatment compliance and good apnea control. On CPAP therapy, the patient has better sleep quality and is more rested overall. He has occasional mouth dryness but he does not feel this is significant. Oral dryness can be reduced by adjusting humidity setting higher or heated hose lower or by adjusting both settings. His machine is at least 5 years old and may be replaced. I informed the patient of this be he feels his machine is working fine and does not need to be replaced at this time. Patient's apnea severity and rationale for treatment to reduce apnea, improve sleep quality and reduce cardiovascular and cerebrovascular events was reviewed. I also reviewed the benefit of consistent device use of CPAP for hypertension, arrhythmia, diabetes, and gastric reflux. * Continue autoCPAP pressure at 7 cmH2O * Notify me if snoring with mask or feeling that the pressure is too much or too little * Attempt to lose weight * Call this office if any problems using CPAP * Return for follow up in 1 year , or sooner if concerns arise Counseling Topics: Spare mask, Weight loss health impact Visit Type: In Office Time Spent with Patient (minutes): 16 Provider Statement: I spent 100% of the Face to Face Visit with the patient with greater than 50% spent counseling the patient and coordination of care.
== END 2020-06-09 09:41 | disposition home or self-care (01) ==
LOC: SC 09:40
PROVIDERS: ATTEND Nurse Practitioner Family
DX: G47.33 Obstructive sleep apnea (adult) (pediatric) (principal); E66.9 Obesity, unspecified; Z68.34 Body mass index [BMI] 34.0-34.9, adult
CPT/HCPCS: 99213; G0463; 99212

== ENCOUNTER 2020-07-31 08:00 | Outpatient (CLI) | payer MEDICARE, OTHER ==
[2020-07-31 12:57] LABS: BASOPHILS # (AUTO) 0.1 10^3/uL (0.0-0.1); BASOPHILS % (AUTO) 0.7 %; EOSINOPHILS # (AUTO) 0.4 10^3/uL (0.0-0.7); EOSINOPHILS % (AUTO) 3.8 %; HGB - HEMOGLOBIN 12.2 g/dL (14.0-18.0); LYMPHOCYTES # (AUTO) 1.3 10^3/uL (1.5-3.5); LYMPHOCYTES % (AUTO) 12.6 %; MEAN CORPUSCULAR HEMOGLOBIN 27.3 pg (27.0-31.0); MEAN CORPUSCULAR HGB CONC 29.9 g/dL (32.0-36.0); MEAN CORPUSCULAR VOLUME 91.3 fL (80.0-94.0); MEAN PLATELET VOLUME 10.9 fL (7.4-11.4); MONOCYTES # (AUTO) 0.8 10^3/uL (0.0-1.0); NEUTROPHILS # (AUTO) 7.3 10^3/uL (1.5-6.6); NEUTROPHILS % (AUTO) 73.4 %; PLT - PLATELET COUNT 257 10^3/uL (130-450); RED BLOOD COUNT 4.47 10^6/uL (4.70-6.10); RED CELL DISTRIBUTION WIDTH 15.2 % (12.0-15.0)
[2020-07-31 13:13] LABS: ALBUMIN 4.1 g/dL (3.2-5.5); ALBUMIN/GLOBULIN RATIO 1.5 (1.0-2.2); ALKALINE PHOSPHATASE 78 IU/L (42-121); ALT ALANINE AMINOTRANSFERASE 14 IU/L (10-60); AST ASPARTATE AMINOTRANSFERASE 20 IU/L (10-42); BILIRUBIN,TOTAL 0.7 mg/dL (0.2-1.0); BUN - BLOOD UREA NITROGEN 42 mg/dL (6-20); CALCIUM 9.4 mg/dL (8.5-10.3); CARBON DIOXIDE - CO2 28 mmol/L (21-32); CHLORIDE 96 mmol/L (101-111); CHOL/HDL RATIO 3.4 (<5.0); CHOLESTEROL 166 mg/dL; CREATININE 1.6 mg/dL (0.6-1.2); GLUCOSE 120 mg/dL (70-100); HDL CHOLESTEROL 49 mg/dL; LDL CHOLESTEROL,CALCULATED 93 mg/dL; LDL/HDL RATIO 1.9 (<3.6); TOTAL PROTEIN 6.9 g/dL (6.7-8.2); VLDL CHOLESTEROL 24 mg/dL
== END 2020-07-31 23:59 | disposition home or self-care (01) ==
LOC: LAB.WCP 08:00
PROVIDERS: ATTEND Physician Assistant Medical
DX: E78.5 Hyperlipidemia, unspecified (principal); E03.9 Hypothyroidism, unspecified; K21.9 Gastro-esophageal reflux disease without esophagitis
CPT/HCPCS: 36415; 80053; 80061; 83721; 84443; 85025

== ENCOUNTER 2020-08-26 07:00 | Outpatient (CLI) | payer MEDICARE, OTHER ==
[2020-08-26 14:23] LABS: CALCIUM 9.7 mg/dL (8.5-10.3); CREATININE 1.4 mg/dL (0.6-1.2)
[2020-08-28 12:37] LABS: ALBUMIN 3.8 g/dL (3.8-4.8); ALPHA 1 GLOBULIN 0.4 g/dL (0.2-0.3); ALPHA 2 GLOBULIN 0.8 g/dL (0.5-0.9); BETA 1 GLOBULIN 0.4 g/dL (0.4-0.6); BETA 2 GLOBULIN 0.3 g/dL (0.2-0.5); GAMMA GLOBULIN 0.8 g/dL (0.8-1.7)
== END 2020-08-26 23:59 | disposition home or self-care (01) ==
LOC: LAB 07:00
PROVIDERS: ATTEND Internal Medicine Nephrology
DX: N05.9 Unspecified nephritic syndrome with unspecified morphologic changes (principal); I50.32 Chronic diastolic (congestive) heart failure; D47.2 Monoclonal gammopathy
CPT/HCPCS: 36415; 80048; 81599; 82570; 83880; 84155; 84156; 84165; 84166

== ENCOUNTER 2020-11-16 10:22 | Outpatient (CLI) | payer MEDICARE, OTHER ==
--- NOTE | 2020-11-16 12:42 | XRAY Report ---
PROCEDURE: Chest 2 View X-Ray INDICATIONS: CENTRILOBULAR EMPHYSEMA TECHNIQUE: 2 view(s) of the chest. COMPARISON: 08/22/2019 chest plain films. FINDINGS: Surgical changes and devices: Dual-chamber cardiac pacemaking device and leads. Lungs and pleura: No pleural effusions or pneumothorax. Lungs are abnormal, with pulmonary hyperexp ansion and interstitial prominence but no pneumonia or neoplasm is found.. Mediastinum: Mediastinal contours are normal. Heart size is normal. Bones and chest wall: No suspicious bony abnormalities. Soft tissues appear unremarkable. IMPRESSION: Chronic pulmonary hyperexpansion consistent with COPD. Chronic interstitial prominence, consistent with long-standing smoking history. No acute disease. Reviewed by: Richi Ramos MD on 11/16/2020 12:40 PM PDT Approved by: Richi Ramos MD on 11/16/2020 12:40 PM PDT Station ID: [id number]
== END 2020-11-16 10:23 | disposition home or self-care (01) ==
LOC: DI.N 10:22
PROVIDERS: ATTEND Internal Medicine Pulmonary Disease
DX: J43.2 Centrilobular emphysema (principal)

== ENCOUNTER 2021-01-28 08:49 | Outpatient (CLI) | payer MEDICARE, OTHER ==
[2021-01-28 12:02] LABS: CALCIUM 9.6 mg/dL (8.5-10.3); CREATININE 1.4 mg/dL (0.6-1.2); PHOSPHORUS 3.7 mg/dL (2.5-4.6); POTASSIUM 3.8 mmol/L (3.5-5.0)
[2021-01-28 12:05] LABS: HCT - HEMATOCRIT 41.2 % (42.0-52.0); MEAN CORPUSCULAR HEMOGLOBIN 28.8 pg (27.0-31.0); MEAN CORPUSCULAR HGB CONC 31.6 g/dL (32.0-36.0); MEAN CORPUSCULAR VOLUME 91.2 fL (80.0-94.0); MEAN PLATELET VOLUME 10.9 fL (7.4-11.4); RED BLOOD COUNT 4.52 10^6/uL (4.70-6.10); RED CELL DISTRIBUTION WIDTH 16.6 % (12.0-15.0); WHITE BLOOD COUNT 9.5 x10^3/uL (4.8-10.8)
[2021-01-28 12:36] LABS: ESTIMATED AVERAGE GLUCOSE 128 mg/dL (70-100); HEMOGLOBIN A1c% 6.1 % (4.27-6.07)
== END 2021-01-28 23:59 | disposition home or self-care (01) ==
LOC: LAB.WCP 08:49
PROVIDERS: ATTEND Physician Assistant Medical
DX: N05.9 Unspecified nephritic syndrome with unspecified morphologic changes (principal); R73.9 Hyperglycemia, unspecified; D70.9 Neutropenia, unspecified; D63.1 Anemia in chronic kidney disease; N25.81 Secondary hyperparathyroidism of renal origin; D47.2 Monoclonal gammopathy
CPT/HCPCS: 36415; 80048; 81599; 82570; 83036; 83970; 84100; 84155; 84156; 84165; 84166; 85027; 86334

== ENCOUNTER 2021-04-29 08:05 | Outpatient (CLI) | payer MEDICARE, OTHER ==
[2021-04-29 12:19] LABS: BUN - BLOOD UREA NITROGEN 33 mg/dL (6-20); CALCIUM 9.5 mg/dL (8.5-10.3); CARBON DIOXIDE - CO2 29 mmol/L (21-32); CHLORIDE 97 mmol/L (101-111); CHOL/HDL RATIO 3.5 (<5.0); CHOLESTEROL 177 mg/dL; CREATININE 1.5 mg/dL (0.6-1.2); GFR - MDRD 44 (>89); GLUCOSE 108 mg/dL (70-100); HDL CHOLESTEROL 51 mg/dL; LDL CHOLESTEROL,CALCULATED 100 mg/dL; POTASSIUM 3.9 mmol/L (3.5-5.0); SODIUM 139 mmol/L (135-145); TRIGLYCERIDES 129 mg/dL; VLDL CHOLESTEROL 26 mg/dL
[2021-04-29 12:30] LABS: ESTIMATED AVERAGE GLUCOSE 123 mg/dL (70-100); HEMOGLOBIN A1c% 5.9 % (4.27-6.07)
== END 2021-04-29 23:59 | disposition home or self-care (01) ==
LOC: LAB.WCP 08:05
PROVIDERS: ATTEND Physician Assistant Medical
DX: E78.5 Hyperlipidemia, unspecified (principal); R73.9 Hyperglycemia, unspecified
CPT/HCPCS: 36415; 80048; 80061; 83036; 83721

== ENCOUNTER 2021-05-26 10:39 | Outpatient (CLI) | payer MEDICARE, OTHER ==
[2021-05-26 11:18] VITALS: BP 119/69
--- NOTE | 2021-05-26 11:18 | SLEEP CARE CONSULTATION ---
Information from patient questionnaire entered by Dane Torres MA. I have reviewed and concur with the information entered by Dane Torres MA. This document represents the service I personally performed and the decisions made by , Janelle Membreno ARNP. History of Present Illness Service Date and Time: 05/26/2021 1039 Previous diagnosis: Severe, Obstructive Sleep Apnea-Hypopnea Syndrome AHI: 38 (in 2014) Reason for follow up: annual (last seen 05/2020) Equipment type: CPAP Equipment obtained from: [employer] (getting supplie as needed) Mask style: Nasal Backup mask available: Yes (old mask) Last cushion change: few days ago, 1st of month [facility] Type of Sleep Study: Polysomnography HPI additional information: VIVI JUNIOR was diagnosed to have severe, AHI 38, obstructive sleep apnea- hypopnea syndrome and returned today for CPAP therapy annual follow-up. Sleep Study - Results Type of Sleep Study: Polysomnography Prior [facility]: Yes [facility] CPAP Compliance Data - Data Reviewed with Patient Average duration of nightly device use: 8 hours 42 minutes Compliance rate %: 100 Current pressure setting (cmH2O): 7.0 Humidity settin Heated hose settin Average residual AHI: 2.8 Subjective Patient concerns: denies: aerophagia, mask discomfort, air blowing in eyes, mask leak noise, condensation in mask/hose, nasal congestion, dry mouth, nose, throat, epistaxis, other Observed to snore while using device: No Current pressure setting perceived as: comfortable On therapy, patient: reports: sleeping better, awakening more refreshed, being more awake and alert during the day, more rested overall. denies: drowsiness while driving Initial [place] Sleepiness Scale score: 10 (in 2014) Current [place] Sleepiness Scale score: 10 (2020) Allergies and Home Medications Home medication list reviewed: Yes (no changes) Review of Systems Review of systems same as previous: Yes (no changes) Physical Exam Vital signs obtained and entered by: Melissa CHAVEZ Blood Pressure: 119/69 (left) Cuff size: wrist Heart Rate: 72 O2 Saturation: 94 (with mask) Height: 6 ft Weight: 258 lb (with boots) Weight change since last visit: 5 lb gain Body Mass Index: 34.9 BMI Classification: Obese Impression and Plan 1. Obstructive Sleep Apnea-Hypopnea Syndrome, severe, with excellent treatment compliance and good apnea control. On CPAP therapy, the patient has better sleep quality and is more rested overall. Patient is satisfied with current therapy and has significant improvement of his sleep apnea. I informed the patient that [employer] has a recall on several devices like the patients machine. Patient was encouraged to register their device online with [employer] for the recall to see if their device is affected. If their device is affected they should start a claim. Patient denies any black particles seen in machine or hoses, any unusual odors coming from device. Patient has not experienced any physical symptoms such as upper airway irritation, headache, skin or eye irritation, asthma, nausea/vomiting, difficulty breathing or chest pain. If patient is not able to sleep due to waking up choking, gasping for air or other respiratory distress that they may decide to continue using it until it is either replaced or repaired. Since the patients current machine is at least 5 years old the patient is opting to update their device with a device that is not on the recall. Patient voiced understanding and agreement with plan. Patient's apnea severity and rationale for treatment to reduce apnea, improve sleep quality and reduce cardiovascular and cerebrovascular events was reviewed. I also reviewed the benefit of consistent device use of CPAP for hypertension, arrhythmia, diabetes and gastric reflux. Patient has gained weight since last visit. Patient was encouraged to lose weight for their overall health and to reduce apneas. * Continue auto CPAP pressure at 7 cmH2O * Update device * Update supplies as needed * Notify me if snoring with mask or feeling that the pressure is too much or too little * Attempt to lose weight * Call this office if any problems using CPAP * Return for follow up one month after obtaining new device, or sooner if concerns arise Counseling Topics: Spare mask, Weight loss health impact Visit Type: In Office Time Spent with Patient (minutes): 22 Provider Statement: I spent 100% of the Face to Face Visit with the patient with greater than 50% spent counseling the patient and coordination of care.
== END 2021-05-26 10:40 | disposition home or self-care (01) ==
LOC: SC 10:39
PROVIDERS: ATTEND Nurse Practitioner Family
DX: G47.33 Obstructive sleep apnea (adult) (pediatric) (principal); E66.9 Obesity, unspecified; Z68.34 Body mass index [BMI] 34.0-34.9, adult
CPT/HCPCS: 99213; G0463; 99212

== ENCOUNTER 2021-05-28 08:00 | Outpatient (CLI) | payer MEDICARE, OTHER ==
[2021-05-28 12:58] LABS: CALCIUM 9.9 mg/dL (8.5-10.3); CREATININE 1.3 mg/dL (0.6-1.2); POTASSIUM 3.9 mmol/L (3.5-5.0)
== END 2021-05-28 23:59 | disposition home or self-care (01) ==
LOC: LAB.WCP 08:00
PROVIDERS: ATTEND Internal Medicine Nephrology
DX: N05.9 Unspecified nephritic syndrome with unspecified morphologic changes (principal)
CPT/HCPCS: 36415; 80048

== ENCOUNTER 2021-11-25 09:49 | Outpatient (CLI) | payer MEDICARE, OTHER ==
[2021-11-25 10:18] LABS: CALCIUM 9.2 mg/dL (8.5-10.3); CREATININE 1.4 mg/dL (0.6-1.2); POTASSIUM 4.4 mmol/L (3.5-5.0)
[2021-11-29 14:08] LABS: A/G RATIO 1.3 (0.7-1.7); ALBUMIN 3.5 g/dL (2.9-4.4); ALPHA-1-GLOBULIN 0.3 g/dL (0.0-0.4); ALPHA-2-GLOBULIN 0.8 g/dL (0.4-1.0); BETA GLOBULIN 0.9 g/dL (0.7-1.3); GAMMA GLOBULIN 0.8 g/dL (0.4-1.8); GLOBULIN, TOTAL 2.7 g/dL (2.2-3.9); PROTEIN TOTAL 6.2 g/dL (6.0-8.5)
== END 2021-11-25 09:50 | disposition home or self-care (01) ==
LOC: LAB 09:49
PROVIDERS: ATTEND Internal Medicine Nephrology
DX: N05.9 Unspecified nephritic syndrome with unspecified morphologic changes (principal); D47.2 Monoclonal gammopathy
CPT/HCPCS: 36415; 80048; 84155; 84165

== ENCOUNTER 2021-12-24 15:48 | Outpatient (CLI) | payer MEDICARE, OTHER ==
--- NOTE | 2021-12-24 17:17 | Ultrasound Report ---
PROCEDURE: Retroperitoneal INDICATIONS: OBSTRUCTIVE NEPHROPSTHY TECHNIQUE: Real-time scanning was performed of the retroperitoneal organs, with image documentation. COMPARISON: None. FINDINGS: Kidneys: Kidneys are normal in size. Right kidney measures 10.7 cm long; left kidney measures 11.5 cm long. Right renal cortical thickness is 1.07 cm; left renal cortical thickness is 1.08 cm. No so lid masses, hydronephrosis, or nephrolithiasis. 9 x 7 x 7 mm cyst is seen in mid pole of right kidne y. A 1.8 x 1.3 x 1.5 cm cyst is seen in lower pole of left kidney. Visualized portions of the pancreas are sonographically normal. Aorta: Visualized aorta is normal in caliber at 3 cm or less. Iliac arteries: Proximal common iliac arteries are normal in caliber at 2.5 cm or less. IVC: Intrahepatic inferior vena cava is patent. Bladder: Pre-void bladder volume is 222.1 mL. Post-void residual is 36.2 mL. Pre-void images demon strate no intraluminal masses or stones. On pre-void images, left ureteral head is noted with color Doppler interrogation. (Of note, ureteral jets may not be detectable in up to 25% of cases due to in sufficient differences in specific gravity between ureteral and bladder urine). Patient is status po st prostatectomy. Miscellaneous: No free abdominal fluid. IMPRESSION: 1. Small bilateral renal cysts. No hydronephrosis or nephrolithiasis. No gross solid appearing renal lesion. 2. Normal appearing urinary bladder with small amount of post void residual. Reviewed by: Jose De Jesus Corley MD on 12/24/2021 5:15 PM PDT Approved by: Jose De Jesus Corley MD on 12/24/2021 5:15 PM PDT Station ID: [id number]
== END 2021-12-24 15:49 | disposition home or self-care (01) ==
LOC: DI 15:48
PROVIDERS: ATTEND Internal Medicine Nephrology
DX: N32.0 Bladder-neck obstruction (principal); N28.1 Cyst of kidney, acquired

== ENCOUNTER 2022-04-07 10:39 | Outpatient (CLI) | payer MEDICARE, OTHER ==
[2022-04-07 11:23] VITALS: BP 110/64
--- NOTE | 2022-04-07 11:23 | SLEEP CARE CONSULTATION ---
Information from patient questionnaire entered by Ariela Isaacs MA. I have reviewed and concur with the information entered by Ariela Iasacs MA. This document represents the service I personally performed and the decisions made by me, Janelle Membreno ARNP. History of Present Illness Service Date and Time: 04/07/2022 1039 Previous diagnosis: Severe, Obstructive Sleep Apnea-Hypopnea Syndrome AHI: 38 (in 2014) Equipment type: CPAP Equipment obtained from: [employer] (getting supplies as needed) Mask style: Nasal Mask brand: Respironics (Dreamwear) Backup mask available: Yes (other mask) Last cushion change: of the month Prior sleep studies: Yes Year and Where: 2014 - [facility] Type of Sleep Study: Polysomnography HPI additional information: VIVI JUNIOR was diagnosed to have severe, AHI 38, obstructive sleep apnea- hypopnea syndrome and returned today for CPAP therapy 10 month follow-up. Sleep Study - Results Type of Sleep Study: Polysomnography Prior sleep studies: Yes Year and Where: 2014 - [facility] CPAP Compliance Data - Data Reviewed with Patient Average duration of nightly device use: 8 hrs 56 minutes Compliance rate %: 100 (180/180 days; 06/12/21-12/08/21) Current pressure setting (cmH2O): 7.0 Average residual AHI: 2.2 Average large leak: 8 mins 4 secs Compliance data discussion: He just got a Dreamstation 2 replacement for his Dreamstation from [employer]. [facility] that he states the pressure is just not right. He feels the pressure starts out too low and will then "blast" later. He has noted that the pressure will not start until he breathes in to get it started. Then it will work for him. Subjective Patient concerns: reports: mask leak noise. denies: aerophagia, mask discomfort, air blowing in eyes, condensation in mask/hose, nasal congestion, dry mouth, nose, throat, epistaxis Observed to snore while using device: No Current pressure setting perceived as: too high (mask type, nasal pillows; but will fall down low during the night on IBreeze and then "blasts") On therapy, patient: reports: sleeping better, awakening more refreshed, being more awake and alert during the day, more rested overall. denies: drowsiness while driving Initial [place] Sleepiness Scale score: 10 (in 2015) Current [place] Sleepiness Scale score: 6 Allergies and Home Medications Known drug allergies: Yes (sulfa) Home medication list reviewed: Yes (no changes) Allergy and home medication list: Allergies diltiazem HCl * [From Cardizem] Allergy (Verified 08/21/19 10:23) Unknown Sulfa (Sulfonamide Antibiotics) Allergy (Verified 08/21/19 10:23) Anaphylaxis Review of Systems Review of systems same as previous: Yes (no changes) Physical Exam Vital signs obtained and entered by: MAKAYLA ARDON Blood Pressure: 110/64 (left arm) Cuff size: long Heart Rate: 71 O2 Saturation: 97 Height: 6 ft Weight: 256 lb Body Mass Index: 34.7 BMI Classification: Obese Impression and Plan 1. Obstructive Sleep Apnea-Hypopnea Syndrome, severe, with good treatment compliance and good apnea control. On CPAP therapy, the patient has better sleep quality and is more rested overall. Patient is wondering what to do about his CPAPs and supplies. He states he gets regular supply shipments from [facility]. He also gets calls from [facility] for supplies and this is where he got his IBreeze about 10 months ago. He just received a replacement Dreamstation 2 from [employer]. He does not want to keep the IBreeze CPAP because the pressure does not seem to work right. He does not know if he can use the Dreamstation 2. I advised him to return the IBreeze to [facility] and I will let them know that it needs to be serviced/checked out. I will send a supply prescription update to [facility] and he is to start using his Dreamstation 2. He does not need to continue getting supplies from [facility] and no updated prescription will be sent there. He voiced understanding and agreement with plan of care. Patient's apnea severity and rationale for treatment to reduce apnea, improve sleep quality and reduce cardiovascular and cerebrovascular events was reviewed. I also reviewed the benefit of consistent device use of CPAP for hypertension, arrhythmia, diabetes and gastric reflux. 2. Obesity, unspecified. Currently patients BMI is 34.7. Obesity increases the risk of apnea, CPAP pressure requirements and overall health risks especially cardiovascular and diabetes. Thus patient is advised to lose weight. Weight loss can be done with reducing portion size, reducing refined foods and balancing content with vegetables, fruit and whole grain foods. In addition, patient encouraged to get regular exercise. * Continue CPAP pressure at 7 cmH2O * Update supplies to [employer] * Patient to start using his Dreamstation 2 * Patient to return IBreeze to [facility] * Notify me if snoring with mask or feeling that the pressure is too much or too little * Attempt to lose weight * Call this office if any problems using CPAP * Return for follow up in 1 year, or sooner if concerns arise Counseling Topics: Spare mask, Weight loss health impact Visit Type: In Office (LAST SEEN 06/06) Time Spent with Patient (minutes): 26 Provider Statement: I spent 100% of the Face to Face Visit with the patient with greater than 50% spent counseling the patient and coordination of care.
== END 2022-04-07 10:40 | disposition home or self-care (01) ==
LOC: SC 10:39
PROVIDERS: ATTEND Nurse Practitioner Family
DX: G47.33 Obstructive sleep apnea (adult) (pediatric) (principal); E66.9 Obesity, unspecified; Z68.34 Body mass index [BMI] 34.0-34.9, adult
CPT/HCPCS: 99213; G0463; 99212

== ENCOUNTER 2022-09-08 11:50 | Emergency (ER) | payer MEDICARE, OTHER ==
[2022-09-08] MEDS ORDERED: IPRATROPIUM/ALBUTEROL 3 ML NEB INH STA (12:24)
--- NOTE | 2022-09-08 12:27 | ED Physician Documentation ---
PD HPI DYSPNEA - Stated complaint Stated Complaint: SOA - Chief complaint Chief Complaint: Resp - History obtained from History obtained from: Patient - Additional information Additional information: This is a very pleasant 87-year-old gentleman with history of COPD, renal insufficiency, HFpEF, sleep apnea on CPAP, hypertension, and A-fib. Insidiously over the last year he has developed exertional dyspnea and fatigue. 2 weeks ago his river expedition guide took him off of Tikosyn and losartan as it was felt to be ineffective. Over the last few days he has developed an acute increase in his dyspnea especially on exertion and fatigue on exertion. There is no associated chest pain. Denies pedal edema but does have chronic numbness of the legs below the knees. He has a chronic productive cough and has seen pulmonology for this and is scheduled to see gastroenterology for this. He states that he was admitted here a couple of years ago and treated with antibiotics and that was very helpful for a time. PD PAST MEDICAL HISTORY - Past Medical History Cardiovascular: Congestive heart failure, Hypertension, Atrial flutter, Atrial fibrillation, Other (Pacer) Respiratory: Asthma, COPD, Sleep apnea Neuro: None Endocrine/Autoimmune: None GI: GERD, Hemorrhoids, Diverticulitis : Kidney stones, Other (Prostatectomy s/p prostate cancer) HEENT: None, Other (Post-nasal drip) Psych: None Musculoskeletal: Osteoarthritis, Chronic back pain (Had had two spine surgeries. L3-L4 fusion, later L3-L5 fusion) Derm: None - Past Surgical History Past Surgical History: Yes General: Colonoscopy, EGD Ortho: Hip replacement, Spine surgery /STAFF RESEARCH SCIENTIST: Other (Prostatectomy) Cardiovascular: Coronary stent, Pacemaker, Other HEENT: Cataracts, Tonsil/Adenoidectomy - Present Medications Home Medications: Ambulatory Orders Medication Instructions Recorded Confirmed Simvastatin 20 mg PO QPM 04/23/16 09/08/22 Metoprolol Succinate 100 mg PO BID 07/26/16 09/08/22 Albuterol Sulfate [Albuterol 2 puffs INH Q4H PRN 09/27/18 09/08/22 Sulfate Hfa] Apixaban [Eliquis] 2.5 mg PO BID 04/13/19 09/08/22 Fluticasone/Salmeterol [Advair 1 puffs INH BID 08/21/19 09/08/22 500-50 Diskus] Pantoprazole Sodium [Protonix] 40 mg PO QDAC 08/21/19 09/08/22 Furosemide [Lasix] 40 mg PO DAILY #30 tablet 08/24/19 09/08/22 guaiFENesin [Mucinex] 600 mg PO BID #30 tablet 08/24/19 09/08/22 Fluticasone [Flonase] 1 sprays KRISHNA DAILY 09/08/22 09/08/22 Gabapentin [Neurontin] 100 mg PO DAILY 09/08/22 09/08/22 Tiotropium Bradley [Spiriva 18 mcg PO DAILY 09/08/22 09/08/22 Handihaler] allopurinoL [Allopurinol] 300 mg PO DAILY 09/08/22 09/08/22 - Allergies Allergies/Adverse Reactions: Allergies Allergy/AdvReac Type Severity Reaction Status Date / Time diltiazem HCl * Allergy Unknown Verified 08/21/19 10:23 [From Cardizem] Sulfa (Sulfonamide Allergy Anaphylaxis Verified 08/21/19 10:23 Antibiotics) - Social History Does the pt smoke?: No Smoking Status: Never smoker Does the pt drink ETOH?: No Does the pt have substance abuse?: No - Immunizations Immunizations are current?: Yes - POLST Patient has POLST: No POLST Status: Full Code PD ED PE NORMAL - Vitals Vital signs reviewed: Yes - General General: Alert and oriented X 3, Other (Mildly labored breathing at rest) - HEENT HEENT: PERRL, EOMI - Neck Neck: Supple, no meningeal sign, No bony TTP - Cardiac Cardiac: Other (Irregularly irregular and rapid. Slightly distant heart sounds. No clear murmur.) - Respiratory Respiratory: Other (Mild tachypnea but speaking in full sentences. Quite rhonchorous at the bases.) - Abdomen Abdomen: Non tender - Extremities Extremities: No edema, No calf tenderness / cord - Neuro Neuro: Alert and oriented X 3, Normal speech Results - Vitals Vitals: Vital Signs - 24 hr 09/08/22 09/08/22 09/08/22 12:02 12:47 13:09 Temperature 36.7 C 35.7 C L Heart Rate 125 H 125 H 114 H Respiratory 18 20 13 Rate Blood Pressure 123/83 H 120/86 H O2 Saturation 94 98 If not protocol 2 : Oxygen Flow, liters/minute 09/08/22 09/08/22 09/08/22 13:30 15:30 16:00 Temperature Heart Rate 111 H 127 H 129 H Respiratory 18 22 24 Rate Blood Pressure 113/78 116/90 H 116/90 H O2 Saturation 94 95 98 If not protocol 2 2 2 : Oxygen Flow, liters/minute 09/08/22 09/08/22 09/08/22 16:30 17:22 18:24 Temperature Heart Rate 127 H 130 H 96 Respiratory 25 H 22 21 Rate Blood Pressure 120/94 H 115/97 H 128/90 H O2 Saturation 98 95 96 If not protocol 2 2 2 : Oxygen Flow, liters/minute Oxygen O2 Source [] Room air O2 Source Nasal cannula - EKG (time done) 1238 Rate: Rate (enter#) (126) Rhythm: Atrial fibrillation [place]: Normal Intervals: Prolonged QT, RBBB QRS: Low voltage Ischemia: T wave inversion (V1 through V3). No: ST elevation c/w ischemia Compare to prior EKG: Changed from prior EKG (Compared with August 22, 2019, now he is in A-fib with RVR with new right bundle branch block and new anterior T wave inversion) Computer interpretation: Agree with computer - Labs Labs: Laboratory Tests 09/08/22 09/08/22 09/08/22 12:30 12:30 12:30 WBC 7.6 RBC 4.23 L Hgb 13.0 L Hct 41.3 L MCV 97.6 H MCH 30.7 MCHC 31.5 L RDW 15.8 H Plt Count 222 MPV 10.5 Neut # (Auto) 5.7 Lymph # (Auto) 0.9 L [place] # (Auto) 0.7 Eos # (Auto) 0.3 Baso # (Auto) 0.1 Absolute Nucleated RBC 0.00 Nucleated RBC % 0.0 Sodium 137 Potassium 4.1 Chloride 94 L Carbon Dioxide 29 Anion Gap 14.0 H BUN 38 H Creatinine 1.8 H Estimated GFR (MDRD) 36 L Glucose 113 H Calcium 9.5 Total Bilirubin 0.8 AST 35 ALT 42 Alkaline Phosphatase 83 Troponin I High Sens 11.3 B-Natriuretic Peptide Total Protein 7.4 Albumin 4.1 Globulin 3.3 Albumin/Globulin Ratio 1.2 Lipase 28 09/08/22 12:30 WBC RBC Hgb Hct MCV MCH MCHC RDW Plt Count MPV Neut # (Auto) Lymph # (Auto) [place] # (Auto) Eos # (Auto) Baso # (Auto) Absolute Nucleated RBC Nucleated RBC % Sodium Potassium Chloride Carbon Dioxide Anion Gap BUN Creatinine Estimated GFR (MDRD) Glucose Calcium Total Bilirubin AST ALT Alkaline Phosphatase Troponin I High Sens B-Natriuretic Peptide 451 H Total Protein Albumin Globulin Albumin/Globulin Ratio Lipase - Rads (name of study) Single view chest x-ray shows patchy bibasilar atelectasis with potential small bilateral pleural effusions. Radiology: Final report received, EMP read indepedently PD Medical Decision Making - ED course ED course: This is a very pleasant 87-year-old gentleman with the above past medical history who presents with indolent dyspnea and fatigue on exertion much worse over the last few days. He is in A-fib with RVR. He is his EKG has changed significantly since he was here a couple of years ago and he has but his biomarkers for ischemia are negative. BNP is elevated above his usual range and increased creatinine above his usual range, it is usually 1.4 or so. CBC reviewed and showing stable chronic anemia. I suspect he has an exacerbation of COPD and he states antibiotics have been helpful for similar exacerbations in the past. He was in A-fib with RVR and administered some IV metoprolol here noting allergy to diltiazem and chronic beta-helio use. His breathing was feeling better after a DuoNeb here. I think there is also some element of heart failure and was administered 40 mg of IV Lasix. I discussed and offered electrical cardioversion which she declined stating it has not really been helpful in the past and he did not think it would be safe with his pacemaker. Preliminary echo report, A-fib with an EF of 20 to 25%, global hypokinesis. Severe right ventricle systolic dysfunction. Severe left atrial enlargement. Severe right atrial enlargement. Trace AR moderate MR, mild TR, trace OR. Mild dilation of the aortic root at 4.3 cm dilated inferior vena cava suggestive of right atrial pressure greater than 15. After some delays I was able to discuss the case with Dr. Aguilar, cardiology for [facility]. He does recommend transfer. In the interim recommends his evening dose of Lopressor and 250 mcg of digoxin for continued rate control. Defers to the hospitalist at [facility] for admission. I do believe there is some exacerbation of COPD type component for it and he requested antibiotics which I do not think is unreasonable and was administered some cefpodoxime and doxycycline. Graciously excepted to [facility] by Dr. Solis at 6:29 PM. [place] were completed - Critical Care Time(min): 45 Time Includes: Direct patient care, Review records, Reassess patient, Document care, Coordinate care, Medical consult, Family consult for tx dec Data interpretation: Labs, Pulse ox, See progress note Procedures excluded from critical care time: EKG Departure - Departure Disposition: 02 Transfer Acute Care Hosp Clinical Impression: Hx of coronary artery disease, Atrial fibrillation with RVR Cardiomyopathy Qualifiers: Cardiomyopathy type: unspecified Qualified Code(s): I42.9 - Cardiomyopathy, unspecified Condition: Serious
[2022-09-08 12:36] LABS: BASOPHILS # (AUTO) 0.1 10^3/uL (0.0-0.1); BASOPHILS % (AUTO) 0.8 %; EOSINOPHILS # (AUTO) 0.3 10^3/uL (0.0-0.7); EOSINOPHILS % (AUTO) 3.8 %; HCT - HEMATOCRIT 41.3 % (42.0-52.0); LYMPHOCYTES # (AUTO) 0.9 10^3/uL (1.5-3.5); LYMPHOCYTES % (AUTO) 11.4 %; MEAN CORPUSCULAR HEMOGLOBIN 30.7 pg (27.0-31.0); MEAN CORPUSCULAR HGB CONC 31.5 g/dL (32.0-36.0); MEAN CORPUSCULAR VOLUME 97.6 fL (80.0-94.0); MEAN PLATELET VOLUME 10.5 fL (7.4-11.4); MONOCYTES # (AUTO) 0.7 10^3/uL (0.0-1.0); MONOCYTES % (AUTO) 8.9 %; NEUTROPHILS # (AUTO) 5.7 10^3/uL (1.5-6.6); NEUTROPHILS % (AUTO) 74.7 %; PLT - PLATELET COUNT 222 10^3/uL (130-450); RED BLOOD COUNT 4.23 10^6/uL (4.70-6.10); RED CELL DISTRIBUTION WIDTH 15.8 % (12.0-15.0); WHITE BLOOD COUNT 7.6 x10^3/uL (4.8-10.8)
[2022-09-08] MEDS ORDERED: METOPROLOL 5 MG/5 ML VIAL IVP STA ×2 (12:50→15:36)
--- NOTE | 2022-09-08 12:50 | XRAY Report ---
PROCEDURE: Chest 1 View X-Ray INDICATIONS: dyspnea TECHNIQUE: One view of the chest was acquired. COMPARISON: None. FINDINGS: Surgical changes and devices: Pacemaker. Lungs and pleura: Patchy bibasilar atelectasis. Question small bilateral pleural effusions. Chronic interstitial prominence. Mediastinum: Mediastinal contours appear normal. Heart size is normal. Bones and chest wall: No suspicious bony lesions. Overlying soft tissues appear unremarkable. IMPRESSION: Patchy bibasilar atelectasis. Question small bilateral pleural effusions. Reviewed by: Aroldo Krishnan MD on 09/08/2022 12:48 PM PST Approved by: Aroldo Krishnan MD on 09/08/2022 12:48 PM PST Station ID: [id number]
--- OUTSIDE RECORDS SUMMARY | 2022-09-08 12:50 | EXTERNAL MEDICAL SUMMARY RPT | Continuity of Care Document ---
:1935 Author Organization [facility] Address [address] [place] [address] Phone Allergies No information. Encounters No information. Functional Status No information. Immunizations No information. Medications No information. Problems date description facility 2022-08-08 11:37 Paroxysmal atrial fibrillation [facility] 2022-08-08 11:37 Unspecified atrial flutter [facility] ital 2022-08-08 11:37 Encounter for therapeutic drug level [facility] 2022-08-08 11:37 Other prison (current) drug therapy [facility] 2022-08-08 11:42 Paroxysmal atrial fibrillation [facility] 2022-08-08 11:42 Unspecified atrial flutter [facility] 2022-08-08 11:42 Encounter for therapeutic drug level [facility] 2022-08-08 11:42 Other prison (current) drug therapy [facility] Procedures No information. Results/Labs test date author facility value unit interpret ation Result panel 1 (unknown) (no date) (unknown) (unknown) 1.51 mg/dl (unkn own) (unknown) (no date) (unknown) (unknown) 136 mmol/l (unkn own) (unknown) (no date) (unknown) (unknown) 23.2 (units unknown) (unknown) (unknown) (no date) (unknown) (unknown) 28 mmol/l (unkn own) (unknown) (no date) (unknown) (unknown) 35 mg/dl (unkn own) (unknown) (no date) (unknown) (unknown) 4.4 mmol/l (unkn own) (unknown) (no date) (unknown) (unknown) 44 ml/min (unkn own) (unknown) (no date) (unknown) (unknown) 44 ml/min (unkn own) (unknown) (no date) (unknown) (unknown) 9.1 mg/dl (unkn own) (unknown) (no date) (unknown) (unknown) 97 mg/dl (unkn own) (unknown) (no date) (unknown) (unknown) 97 mg/dl (unkn own) (unknown) (no date) (unknown) (unknown) 98 mmol/l (unkn own) Social History No information. Vital Signs No information.
[2022-09-08 13:07] LABS: ALBUMIN 4.1 g/dL (3.2-5.5); ALBUMIN/GLOBULIN RATIO 1.2 (1.0-2.2); BILIRUBIN,TOTAL 0.8 mg/dL (0.2-1.0); CALCIUM 9.5 mg/dL (8.5-10.3); CREATININE 1.8 mg/dL (0.6-1.2); POTASSIUM 4.1 mmol/L (3.5-5.0); TOTAL PROTEIN 7.4 g/dL (6.7-8.2)
[2022-09-08] MEDS ORDERED: FUROSEMIDE 40 MG/4 ML VIAL IVP STA (13:26)
[2022-09-08] MEDS ORDERED: METOPROLOL SUCCINATE 25 MG TABLET PO STA (17:28)
[2022-09-08] MEDS ORDERED: METOPROLOL SUCCINATE 50 MG TABLET PO STA (17:28)
[2022-09-08] MEDS ORDERED: DIGOXIN 500 MCG/2 ML AMP IVP STA (17:29)
[2022-09-08] MEDS ORDERED: CEFPODOXIME PROXETIL 100 MG TABLET PO STA (17:37)
[2022-09-08] MEDS ORDERED: DOXYCYCLINE 100 MG TABLET PO STA (17:37)
[2022-09-08 20:08] VITALS: BP 133/98
== END 2022-09-08 20:08 | disposition short-term general hospital (02) ==
LOC: ED 11:50
DX: I42.9 Cardiomyopathy, unspecified (principal); I25.10 Atherosclerotic heart disease of native coronary artery without angina pectoris; I48.91 Unspecified atrial fibrillation; J44.9 Chronic obstructive pulmonary disease, unspecified; I11.0 Hypertensive heart disease with heart failure; I50.9 Heart failure, unspecified; Z95.0 Presence of cardiac pacemaker; Z79.899 Other long term (current) drug therapy; Z79.01 Long term (current) use of anticoagulants; Z79.51 Long term (current) use of inhaled steroids
CPT/HCPCS: 36415; 71045; 80053; 83690; 83880; 84484; 85025; 93005; 93306; 94640; 96374; 96375; 96376; 99285; 99291; A9270

== ENCOUNTER 2022-09-08 19:54 | Outpatient (CLI) | payer MEDICARE, OTHER | END 2022-09-08 19:55 | disposition short-term general hospital (02) | LOC: EMS 19:54 | DX: I48.91 Unspecified atrial fibrillation (principal); I50.9 Heart failure, unspecified; I42.9 Cardiomyopathy, unspecified | CPT/HCPCS: A0425; A0426 ==

== ENCOUNTER 2022-10-05 12:20 | Outpatient (CLI) | payer MEDICARE, OTHER | END 2022-10-05 20:51 | disposition EMS.NT | LOC: EMS 12:20 | DX: I48.91 Unspecified atrial fibrillation (principal) ==

== ENCOUNTER 2022-11-03 10:51 | Outpatient (CLI) | payer MEDICARE, OTHER ==
[2022-11-03 11:17] LABS: DIGOXIN 0.5 ng/mL
== END 2022-11-03 10:52 | disposition home or self-care (01) ==
LOC: LAB 10:51
PROVIDERS: ATTEND Nurse Practitioner
DX: I48.19 Other persistent atrial fibrillation (principal); Z51.81 Encounter for therapeutic drug level monitoring; Z79.899 Other long term (current) drug therapy
CPT/HCPCS: 36415; 80162

== ENCOUNTER 2022-11-08 12:30 | Outpatient (CLI) | payer MEDICARE, OTHER ==
--- NOTE | 2022-11-08 16:49 | Ultrasound Report ---
PROCEDURE: Head or Neck Soft Tissue INDICATIONS: SOFT TISSUE MASS TECHNIQUE: Real-time scanning was performed of the thyroid gland, with image documentation. COMPARISON: None FINDINGS: Ultrasound was performed in the area of interest around the posterior articular cartilage in. There is a 1.4 x 1.1 x 1.5 cm hyperechoic nodule in the subcutaneous fat, compatible with a lipom a. On Doppler ultrasound, there is no visible internal vascularity. IMPRESSION: 1. There is a 1.4 x 1.1 x 1.5 cm hyperechoic subcutaneous nodule in the area of interest, most likely a lipoma. Less likely, this could represent a liposarcoma. Please correlate with history of pain and rapid growth. If clinically indicated, a follow-up exam would be helpful. Reviewed by: Piero Zamudio MD on 11/08/2022 4:47 PM PDT Approved by: Piero Zamudio MD on 11/08/2022 4:47 PM PDT Station ID: [id number]
== END 2022-11-08 12:31 | disposition home or self-care (01) ==
LOC: DI 12:30
PROVIDERS: ATTEND Physician Assistant Medical
DX: R22.1 Localized swelling, mass and lump, neck (principal)

== ENCOUNTER 2022-11-25 08:39 | Outpatient (CLI) | payer MEDICARE, OTHER | END 2022-11-25 23:59 | disposition EMS.NT | LOC: EMS 08:39 | DX: Z74.09 Other reduced mobility (principal) ==

== ENCOUNTER 2023-01-27 11:19 | Outpatient (CLI) | payer MEDICARE, OTHER ==
[2023-01-27 11:33] LABS: HCT - HEMATOCRIT 41.6 % (42.0-52.0); MEAN CORPUSCULAR HEMOGLOBIN 30.4 pg (27.0-31.0); MEAN CORPUSCULAR HGB CONC 31.3 g/dL (32.0-36.0); MEAN CORPUSCULAR VOLUME 97.4 fL (80.0-94.0); MEAN PLATELET VOLUME 9.8 fL (7.4-11.4); RED BLOOD COUNT 4.27 10^6/uL (4.70-6.10); RED CELL DISTRIBUTION WIDTH 15.9 % (12.0-15.0); WHITE BLOOD COUNT 10.8 x10^3/uL (4.8-10.8)
[2023-01-27 11:41] LABS: CALCIUM 9.4 mg/dL (8.5-10.3); CREATININE 1.5 mg/dL (0.6-1.2); POTASSIUM 4.2 mmol/L (3.5-5.0)
[2023-01-31 12:09] LABS: A/G RATIO 1.2 (0.7-1.7); ALBUMIN 3.3 g/dL (2.9-4.4); ALPHA-1-GLOBULIN 0.2 g/dL (0.0-0.4); ALPHA-2-GLOBULIN 0.9 g/dL (0.4-1.0); BETA GLOBULIN 0.9 g/dL (0.7-1.3); GAMMA GLOBULIN 0.8 g/dL (0.4-1.8); GLOBULIN, TOTAL 2.8 g/dL (2.2-3.9); PROTEIN TOTAL 6.1 g/dL (6.0-8.5)
== END 2023-01-27 11:20 | disposition home or self-care (01) ==
LOC: LAB 11:19
PROVIDERS: ATTEND Internal Medicine Nephrology
DX: N05.9 Unspecified nephritic syndrome with unspecified morphologic changes (principal); D70.9 Neutropenia, unspecified; D63.1 Anemia in chronic kidney disease; D47.2 Monoclonal gammopathy
CPT/HCPCS: 36415; 80048; 84155; 84165; 85027

== ENCOUNTER 2023-03-13 15:08 | Outpatient (CLI) | payer MEDICARE, OTHER | END 2023-03-13 15:09 | disposition critical access hospital (66) | LOC: EMS 15:08 | DX: M54.50 Low back pain, unspecified (principal); M79.605 Pain in left leg | CPT/HCPCS: A0425; A0429 ==

== ENCOUNTER 2023-03-13 15:36 | Emergency (ER) | payer MEDICARE, OTHER ==
[2023-03-13] MEDS ORDERED: HYDROmorphone 1 MG/ML CARPUJECT IVP STA (15:53)
--- NOTE | 2023-03-13 15:55 | ED Physician Documentation ---
PD HPI BACK PAIN - Stated complaint Stated Complaint: BACK PX - Chief complaint Chief Complaint: Back Pain - History obtained from History obtained from: Patient - Additional information Additional information: 87-year-old gentleman with chronic vascular issues has had severe back pain for the last 4 days and is associated with abdominal pain which is atypical for him. He does have bilateral leg numbness but that is not new. He also has chronic mild incontinence, but that is related to his history of prostate cancer and chronic Lasix use. It is not new. He has been using Tylenol and hot packs for the pain which have been ineffective. He does have a back specialist at [facility]. States he had a CT about a year ago with unknown findings and his surgeon wants a new one. PD PAST MEDICAL HISTORY - Past Medical History Cardiovascular: Congestive heart failure, Hypertension, Atrial flutter, Atrial fibrillation, Other (Pacer) Respiratory: Asthma, COPD, Sleep apnea Neuro: None Endocrine/Autoimmune: None GI: GERD, Hemorrhoids, Diverticulitis : Kidney stones, Other (Prostatectomy s/p prostate cancer) HEENT: None, Other (Post-nasal drip) Psych: None Musculoskeletal: Osteoarthritis, Chronic back pain (Had had two spine surgeries. L3-L4 fusion, later L3-L5 fusion) Derm: None - Past Surgical History Past Surgical History: Yes General: Colonoscopy, EGD Ortho: Hip replacement, Spine surgery /[employer]: Other (Prostatectomy) Cardiovascular: Coronary stent, Pacemaker, Other HEENT: Cataracts, Tonsil/Adenoidectomy - Present Medications Home Medications: Ambulatory Orders Medication Instructions Recorded Confirmed Simvastatin 20 mg PO QPM 04/23/16 09/08/22 Metoprolol Succinate 100 mg PO BID 07/26/16 09/08/22 Albuterol Sulfate [Albuterol 2 puffs INH Q4H PRN 09/27/18 09/08/22 Sulfate Hfa] Apixaban [Eliquis] 2.5 mg PO BID 04/13/19 09/08/22 Fluticasone/Salmeterol [Advair 1 puffs INH BID 08/21/19 09/08/22 500-50 Diskus] Pantoprazole Sodium [Protonix] 40 mg PO QDAC 08/21/19 09/08/22 Furosemide [Lasix] 40 mg PO DAILY #30 tablet 08/24/19 09/08/22 guaiFENesin [Mucinex] 600 mg PO BID #30 tablet 08/24/19 09/08/22 Fluticasone [Flonase] 1 sprays KRISHNA DAILY 09/08/22 09/08/22 Gabapentin [Neurontin] 100 mg PO DAILY 09/08/22 09/08/22 Tiotropium [employer] [Spiriva 18 mcg PO DAILY 09/08/22 09/08/22 Handihaler] allopurinoL [Allopurinol] 300 mg PO DAILY 09/08/22 09/08/22 HYDROcod/ACETAM 5/325 [Mission 5/325] 1 - 2 tab PO Q6H PRN #15 tablet 03/13/23 polyethylene glycoL 3350(BULK) 17 gm PO DAILY PRN #1 each 03/13/23 [Miralax] - Allergies Allergies/Adverse Reactions: Allergies Allergy/AdvReac Type Severity Reaction Status Date / Time diltiazem HCl * Allergy Unknown Verified 08/21/19 10:23 [From Cardizem] Sulfa (Sulfonamide Allergy Anaphylaxis Verified 08/21/19 10:23 Antibiotics) - Social History Does the pt smoke?: No Smoking Status: Never smoker Does the pt drink ETOH?: No Does the pt have substance abuse?: No - Immunizations Immunizations are current?: Yes - POLST Patient has POLST: No POLST Status: Full Code PD ED PE NORMAL - Vitals Vital signs reviewed: Yes - General General: Alert and oriented X 3, No acute distress - Abdomen Abdomen: Normal bowel sounds, Soft, Other (mild ttp diffuse) - Derm Derm: Normal color, Warm and dry - Neuro Neuro: Alert and oriented X 3, Normal speech Results - Vitals Vitals: Vital Signs - 24 hr 03/13/23 15:43 Temperature 36.7 C Heart Rate 91 Respiratory 18 Rate Blood Pressure 149/82 H O2 Saturation 93 Oxygen O2 Source [] Room air O2 Source Room air - Labs Labs: Laboratory Tests 03/13/23 03/13/23 16:05 16:05 WBC 11.4 H RBC 4.67 L Hgb 14.4 Hct 45.2 MCV 96.8 H MCH 30.8 MCHC 31.9 L RDW 15.7 H Plt Count 277 MPV 10.0 Neut # (Auto) 8.6 H Lymph # (Auto) 1.1 L Mason # (Auto) 0.7 Eos # (Auto) 0.8 H Baso # (Auto) 0.1 Absolute Nucleated RBC 0.00 Nucleated RBC % 0.0 Sodium 140 Potassium 3.6 Chloride 97 L Carbon Dioxide 34 H Anion Gap 9.0 BUN 25 H Creatinine 1.5 H Estimated GFR (MDRD) 44 L Glucose 188 H Calcium 10.2 - Rads (name of study) CT A/P- No acute process, he is constipated, hepatomegaly, postsurgical changes. Relevant Findings:: Final report received, EMP independent interpretation of test CT of lumbar spine with multilevel DDD and postsurgical changes Relevant Findings:: Final report received, EMP independent interpretation of test PD Medical Decision Making - ED course Complexity details: reviewed results (Mild leukocytosis on CBC at 11.4, chemistry panel notable for stable renal function with CKD) ED course: 87-year-old gentleman with acute on chronic back pain. Nothing in the history to really suggest a spinal cord injury such as cauda equina, but he has several risk factors for more severe disease including the association with abdominal pain which is worrisome for a vascular issue such as AAA, he has advanced age and history of cancer as such advanced imaging will be obtained. Advanced imaging was negative for an emergent medical condition, did show constipation and multilevel DDD in his back. He was feeling much better after the administration of Dilaudid and Toradol here. Departure - Departure Disposition: 01 Home, Self Care Clinical Impression: Back pain, Constipation, Abdominal pain Condition: Good Record reviewed to determine appropriate education?: Yes Instructions: ED Constipation, ED Neck Back Pain General Prescriptions: polyethylene glycoL 3350(BULK) [Miralax] 17 gm PO DAILY PRN #1 each PRN Reason: Constipation HYDROcod/ACETAM 5/325 [Mission 5/325] 1 - 2 tab PO Q6H PRN #15 tablet PRN Reason: Pain Comments: As discussed, your CTs show constipation, a lot of degenerative disease in your spine causing arthritic changes and but nothing concerning for fracture or recurrence of prostate cancer. Do discuss this visit with your primary care physician, call in for next available appointment. I sent your prescriptions electronically to [facility] in [place]. I am prescribing a short course of narcotic pain medication for you. These are potentially dangerous and addictive medications that should be used carefully. These medications may constipate you. Take an ipya-ejl-mghzpkr stool softener (docusate) twice daily with plenty of water while taking these medications. If you go 24 hours without a bowel movement, take vgzq-orl-flttejk miralax, per package instructions. Do not drink or drive while taking these medications. If you received narcotic or sedating medications while in the emergency department, do not drive for 24 hours. Store this medication in a safe, secure place and out of reach of children. It is a violation of federal law to give or sell this medication to another person or to use in a manner other than prescribed. The ED will not refill narcotic prescriptions, including prescriptions lost or stolen. To dispose of unwanted medications: 1. [facility] provides a drop box for medication in pill form only (no liquids) 8:00 am to 4:30 p.m. Monday-Monday in the lobby of the [facility], [address] [place] [address]. Empty pills into ziplock bag before disposal. Call [phone] for information. 2.[employer] is a free service available to all [facility] residents. Go to [email or web address] Note that many narcotic pain relievers also contain Tylenol/acetaminophen. Please ensure that your total dose of acetaminophen from all sources does not exceed 3 g (3000 mg) per day.
[2023-03-13 16:01] VITALS: BP 149/82; O2SAT 93
[2023-03-13 16:13] LABS: BASOPHILS # (AUTO) 0.1 10^3/uL (0.0-0.1); BASOPHILS % (AUTO) 0.7 %; EOSINOPHILS # (AUTO) 0.8 10^3/uL (0.0-0.7); EOSINOPHILS % (AUTO) 7.2 %; HCT - HEMATOCRIT 45.2 % (42.0-52.0); HGB - HEMOGLOBIN 14.4 g/dL (14.0-18.0); LYMPHOCYTES # (AUTO) 1.1 10^3/uL (1.5-3.5); LYMPHOCYTES % (AUTO) 9.9 %; MEAN CORPUSCULAR HEMOGLOBIN 30.8 pg (27.0-31.0); MEAN CORPUSCULAR HGB CONC 31.9 g/dL (32.0-36.0); MEAN CORPUSCULAR VOLUME 96.8 fL (80.0-94.0); MONOCYTES # (AUTO) 0.7 10^3/uL (0.0-1.0); MONOCYTES % (AUTO) 6.2 %; NEUTROPHILS # (AUTO) 8.6 10^3/uL (1.5-6.6); NEUTROPHILS % (AUTO) 75.1 %; PLT - PLATELET COUNT 277 10^3/uL (130-450); RED BLOOD COUNT 4.67 10^6/uL (4.70-6.10); RED CELL DISTRIBUTION WIDTH 15.7 % (12.0-15.0); WHITE BLOOD COUNT 11.4 x10^3/uL (4.8-10.8)
--- OUTSIDE RECORDS SUMMARY | 2023-03-13 16:22 | EXTERNAL MEDICAL SUMMARY RPT | Continuity of Care Document ---
Author Name Unknown Address [address] [place] [address] Phone Organization [facility] Address [address] [place] [address] Phone Care Team Providers Care Loan Assistant Name Role Phone Unavailable Unavailable Unavailable Christine Michelle Unavailable Unavailable Allergies and Intolerances date description facility reaction severity (no date) Sulfa (Sulfonamide Antibiotics) [facility] (no reaction) (no severity) (no date) azithromycin [facility] (no reaction) (no severity) (no date) diltiazem [facility] (no reaction) (no se verity) Problems date description facility 2022-12-21 10:43 Other persistent atrial fibrill [facility] 2022-12-21 10:43 Shortness of breath [facility] 2022-12-21 10:45 Other persistent atrial fibrill [facility] 2022-12-21 10:45 Shortness of breath [facility] 2022-12-21 10:50 Other persistent atrial fibrill [facility] 2022-12-21 10:50 Shortness of breath [facility] 2022-12-26 09:42 Dysphagia, unspecified [facility] 2022-12-26 10:16 Dysphagia, unspecified [facility] 2022-12-26 10:31 Dysphagia, unspecified [facility] 2023-01-12 13:43 Dysphagia, unspecified [facility] 2023-01-12 13:43 Procedure and treatm ent not carried out because of other [facility] 2023-01-25 12:09 Dysphagia, unspecified [facility] Procedures date description facility 2022-12-21 00:00 X-ray of chest, two views [facility] 2022-12-26 00:00 Esophagogastroduodenoscopy [facility] Results/Labs test date facility value unit notes Social History date description facility 2022-12-26 00:00 Ex-smoker (finding) [facility] Vital Signs date measurement value units 2022-12-26 00:00 BMI 34.8 kg/m2 2022-12-26 00:00 BP_diastolic 82 mmHg 2022-12-26 00:00 BP_systolic 129 mmHg 2022-12-26 00:00 heart_rate 112 /min 2022-12-26 00:00 height_metric 180.34 cm 2022-12-26 00:00 height_standard 71 in 2022-12-26 00:00 o2_saturation 95 % 2022-12-26 00:00 respiration_rate 18 /min 2022-12-26 00:00 temperature_metric 36.22 C 2022-12-26 00:00 temperature_standard 97.2 F 2022-12-26 00:00 weight_metric 113.39 kg 2022-12-26 00:00 weight_standard 249.98 lb
[2023-03-13] MEDS ORDERED: KETOROLAC 15 MG/ML VIAL IVP STA (16:27)
[2023-03-13 16:28] LABS: CALCIUM 10.2 mg/dL (8.5-10.3); CREATININE 1.5 mg/dL (0.6-1.3); POTASSIUM 3.6 mmol/L (3.5-4.5)
--- NOTE | 2023-03-13 17:48 | CT Report ---
PROCEDURE: ABDOMEN/PELVIS W INDICATIONS: IV only, abd / back pain CONTRAST: 100mL Omni 300 TECHNIQUE: After the administration of IV contrast, 5 mm thick sections acquired from the diaphragms to the symp hysis. 5 mm thick coronal and sagittal reformats were acquired. For radiation dose reduction, the f ollowing was used: automated exposure control, adjustment of mA and/or kV according to patient size. COMPARISON: None FINDINGS: Image quality: Excellent. Lung bases and heart: Bibasilar scattered atelectasis is seen. Heart size is enlarged, no pericardial effusion. Pacemaker leads are noted.. Liver: No solid mass. Moderate hepatic steatosis is seen. Hepatomegaly is also noted. Gallbladder and biliary tree: Gallbladder is within normal limits. No biliary ductal dilatation. Spleen: No splenomegaly. Pancreas: No pancreatic ductal dilation. Adrenals: No adrenal nodule. Kidneys and ureters: No hydronephrosis. No renal cystic lesion which requires follow up. No solid mas s. Bowel and peritoneum: No bowel distension. No pathologic free fluid. Colonic diverticulosis is seen without colonic wall thickening or mesenteric fat stranding. Lymph nodes: No central or retroperitoneal adenopathy. Vessels: No infrarenal aortic aneurysm. PELVIS Reproductive organs: Unremarkable. Bladder: No abnormal wall thickening, accounting for underdistension. Pelvic lymph nodes: No pelvic adenopathy by size criteria. Bones: No aggressive osseous abnormality. Patient is status post bilateral total hip arthroplasty and posterior fusion of lower lumbar spine at L3-L5 levels with beam hardening artifacts. No gross acute vertebral body compression fracture. Other: No significant ventral or inguinal hernia. IMPRESSION: 1. No acute inflammatory process is seen in abdomen or pelvis. No free fluid of free air. Colonic div erticulosis without evidence of acute diverticulitis. No abscess collection. 2. Hepatomegaly and moderate hepatic steatosis. No discrete hepatic lesion. 3. Postsurgical changes in bilateral hip and lower lumbar spine. Please correlate with lumbar spine C T for further evaluation. Reviewed by: Jose De Jesus Corley MD on 03/13/2023 5:47 PM PDT Approved by: Jose De Jesus Corley MD on 03/13/2023 5:47 PM PDT Station ID: [id number]
--- NOTE | 2023-03-13 18:12 | CT Report ---
PROCEDURE: LUMBAR SPINE WO INDICATIONS: back pain TECHNIQUE: Noncontrast 3 mm thick sections acquired from the T12 level to the sacrum. Sagittal and coronal refo rmats were constructed. For radiation dose reduction, the following was used: automated exposure co ntrol, adjustment of mA and/or kV according to patient size. COMPARISON: None. FINDINGS: Image quality: Excellent. Bones: Patient is status post transpedicular fusion at L3-4 and L4-5 levels with surgical hardware in place. There is no gross hardware loosening or failure. 8 mm anterolisthesis of L4 on L5 is seen. No acute vertebral body compression fracture. No suspicious bony lesions. No gross pars defects. T12-L1: Loss of disc height and degenerative endplate changes are noted with vacuum disc phenomenon. Broad-based disc bulge and bilateral facet arthrosis is seen with mild central canal stenosis, no si gnificant neural foraminal narrowing. L1-L2: Loss of disc height, degenerative endplate changes and vacuum disc phenomenon is seen. Broa d-based disc bulge and bilateral facet arthrosis is noted causing moderate central canal stenosis and bilateral neural foraminal narrowing. L2-L3: Vacuum disc phenomenon and degenerative endplate changes are seen. Loss of disc height is a lso noted. Broad-based disc bulge and bilateral facet arthrosis is seen causing moderate to severe ce ntral canal stenosis and bilateral neural foraminal narrowing. L3-L4: Postsurgical changes are seen. There is bilateral facet arthrosis. No significant canal sten osis. Mild bilateral neural foraminal narrowing is seen. L4-L5: Post surgical changes are noted. Bilateral facet arthrosis is seen. Prior laminectomy is not ed. No significant canal stenosis. Moderate bilateral facet arthrosis is seen. L5-S1: Degenerative endplate changes are noted. Diffuse disc bulge and bilateral facet arthrosis. N o significant canal stenosis or neural foraminal narrowing. Soft tissues: No retroperitoneal masses or hematomas. Visualized aorta is normal in caliber. IMPRESSION: 1. Postsurgical changes in lower lumbar spine at L3-4 and L4-5 levels. No gross hardware loosening or failure. No acute vertebral body compression fracture. 2. 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 Reviewed by: Jose De Jesus Corley MD on 03/13/2023 6:11 PM PDT Approved by: Jose De Jesus Corley MD on 03/13/2023 6:11 PM PDT Station ID: [id number]
[2023-03-14] MEDS ORDERED: iohexoL-300 100 ML VIAL IVP ONE (00:31)
== END 2023-03-13 18:55 | disposition home or self-care (01) ==
LOC: EDUNIT# → ED 15:36
DX: M54.9 Dorsalgia, unspecified (principal); R10.9 Unspecified abdominal pain; K59.00 Constipation, unspecified; I10 Essential (primary) hypertension; I48.91 Unspecified atrial fibrillation; Z79.01 Long term (current) use of anticoagulants; G89.29 Other chronic pain
CPT/HCPCS: 36415; 72131; 74177; 80048; 85025; 96374; 96375; 99284; J1170; Q9967

== ENCOUNTER 2023-03-29 10:06 | Outpatient (CLI) | payer MEDICARE, OTHER ==
[2023-03-29 12:54] LABS: ALBUMIN 4.3 g/dL (3.2-5.5); ALBUMIN/GLOBULIN RATIO 1.7 (1.0-2.2); ALKALINE PHOSPHATASE 89 IU/L (42-121); ALT ALANINE AMINOTRANSFERASE 17 IU/L (10-60); AST ASPARTATE AMINOTRANSFERASE 19 IU/L (10-42); BILIRUBIN,TOTAL 0.7 mg/dL (0.2-1.0); BUN - BLOOD UREA NITROGEN 27 mg/dL (6-20); CALCIUM 9.9 mg/dL (8.5-10.3); CARBON DIOXIDE - CO2 33 mmol/L (21-32); CHLORIDE 97 mmol/L (101-111); CHOL/HDL RATIO 4.7 (<5.0); CHOLESTEROL 159 mg/dL; CREATININE 1.4 mg/dL (0.6-1.3); GFR - MDRD 48 (>89); GLUCOSE 152 mg/dL (74-104); HDL CHOLESTEROL 34 mg/dL; POTASSIUM 4.1 mmol/L (3.5-4.5); SODIUM 138 mmol/L (135-145); TOTAL PROTEIN 6.8 g/dL (6.4-8.9); TRIGLYCERIDES 442 mg/dL (48-352)
[2023-03-29 13:46] LABS: THYROID STIMULATING HORMONE 6.69 uIU/mL (0.34-5.60)
[2023-03-29 17:21] LABS: LDL CHOLESTEROL,DIRECT 60 mg/dL (75-193); LDLD/HDL RATIO 1.8 (<3.6)
== END 2023-03-29 10:07 | disposition home or self-care (01) ==
LOC: LAB.N 10:06
PROVIDERS: ATTEND Physician Assistant Medical
DX: E78.5 Hyperlipidemia, unspecified (principal); E03.9 Hypothyroidism, unspecified; M10.9 Gout, unspecified
CPT/HCPCS: 36415; 80053; 80061; 83721; 84439; 84443; 84550

== ENCOUNTER 2023-05-26 10:41 | Outpatient (CLI) | payer MEDICARE, OTHER ==
[2023-05-26 12:37] LABS: ESTIMATED AVERAGE GLUCOSE 166 mg/dL (70-100); HEMOGLOBIN A1c% 7.4 % (4.27-6.07)
== END 2023-05-26 10:42 | disposition home or self-care (01) ==
LOC: LAB.N 10:41
PROVIDERS: ATTEND Physician Assistant Medical
DX: R73.9 Hyperglycemia, unspecified (principal)
CPT/HCPCS: 36415; 83036

== ENCOUNTER 2023-10-02 09:09 | Outpatient (CLI) | payer MEDICARE, OTHER ==
[2023-10-02 12:23] LABS: ESTIMATED AVERAGE GLUCOSE 143 mg/dL (70-100); HEMOGLOBIN A1c% 6.6 % (4.27-6.07)
[2023-10-02 12:28] LABS: ALBUMIN/GLOBULIN RATIO 1.5 (1.0-2.2); ALKALINE PHOSPHATASE 78 IU/L (42-121); ALT ALANINE AMINOTRANSFERASE 14 IU/L (10-60); AST ASPARTATE AMINOTRANSFERASE 16 IU/L (10-42); BILIRUBIN,TOTAL 0.7 mg/dL (0.2-1.0); BUN - BLOOD UREA NITROGEN 28 mg/dL (6-20); CALCIUM 9.9 mg/dL (8.5-10.3); CARBON DIOXIDE - CO2 33 mmol/L (21-32); CHLORIDE 96 mmol/L (101-111); CHOL/HDL RATIO 5.8 (<5.0); CHOLESTEROL 187 mg/dL; CREATININE 1.4 mg/dL (0.6-1.3); GFR - MDRD 48 (>89); GLUCOSE 138 mg/dL (74-104); HDL CHOLESTEROL 32 mg/dL; POTASSIUM 3.7 mmol/L (3.5-4.5); SODIUM 137 mmol/L (135-145); TOTAL PROTEIN 6.7 g/dL (6.4-8.9); TRIGLYCERIDES 529 mg/dL (48-352)
[2023-10-02 13:10] LABS: LDL CHOLESTEROL,DIRECT 72 mg/dL (75-193); LDLD/HDL RATIO 2.3 (<3.6)
== END 2023-10-02 09:10 | disposition home or self-care (01) ==
LOC: LAB.N 09:09
PROVIDERS: ATTEND Physician Assistant Medical
DX: E11.9 Type 2 diabetes mellitus without complications (principal)
CPT/HCPCS: 36415; 80053; 80061; 83036; 83721

== ENCOUNTER 2023-10-30 16:38 | Outpatient (CLI) | payer MEDICARE, OTHER | END 2023-10-30 16:39 | disposition short-term general hospital (02) | LOC: EMS 16:38 | DX: M54.50 Low back pain, unspecified (principal) | CPT/HCPCS: A0425; A0429 ==

== ENCOUNTER 2024-01-03 08:11 | Outpatient (CLI) | payer MEDICARE, OTHER ==
[2024-01-03 12:12] LABS: CALCIUM 10.2 mg/dL (8.5-10.3); CREATININE 1.4 mg/dL (0.6-1.3); ESTIMATED AVERAGE GLUCOSE 128 mg/dL (70-100); HEMOGLOBIN A1c% 6.1 % (4.27-6.07); POTASSIUM 3.8 mmol/L (3.5-4.5)
== END 2024-01-03 08:12 | disposition home or self-care (01) ==
LOC: LAB.N 08:11
PROVIDERS: ATTEND Physician Assistant Medical
DX: E11.9 Type 2 diabetes mellitus without complications (principal)
CPT/HCPCS: 36415; 80048; 83036

== ENCOUNTER 2024-04-04 12:53 | Outpatient (CLI) | payer MEDICARE, OTHER ==
[2024-04-04 18:26] LABS: ALBUMIN 4.2 g/dL (3.2-5.5); ALBUMIN/GLOBULIN RATIO 1.4 (1.0-2.2); ALKALINE PHOSPHATASE 86 IU/L (42-121); ALT ALANINE AMINOTRANSFERASE 17 IU/L (10-60); AST ASPARTATE AMINOTRANSFERASE 17 IU/L (10-42); BILIRUBIN,TOTAL 0.6 mg/dL (0.2-1.0); BUN - BLOOD UREA NITROGEN 22 mg/dL (6-20); CARBON DIOXIDE - CO2 34 mmol/L (21-32); CHLORIDE 99 mmol/L (101-111); CHOLESTEROL 166 mg/dL; CREATININE 1.4 mg/dL (0.6-1.3); GFR - MDRD 48 (>89); GLUCOSE 107 mg/dL (74-104); HDL CHOLESTEROL 41 mg/dL; LDL CHOLESTEROL,CALCULATED 64 mg/dL; LDL/HDL RATIO 1.6 (<3.6); POTASSIUM 4.2 mmol/L (3.5-4.5); SODIUM 141 mmol/L (135-145); TOTAL PROTEIN 7.1 g/dL (6.4-8.9); TRIGLYCERIDES 305 mg/dL; VLDL CHOLESTEROL 61 mg/dL
[2024-04-04 20:36] LABS: ESTIMATED AVERAGE GLUCOSE 128 mg/dL (70-100); HEMOGLOBIN A1c% 6.1 % (4.27-6.07)
== END 2024-04-04 12:54 | disposition home or self-care (01) ==
LOC: LAB.N 12:53
PROVIDERS: ATTEND Physician Assistant Medical
DX: E11.9 Type 2 diabetes mellitus without complications (principal)
CPT/HCPCS: 36415; 80053; 80061; 83036; 83721

== ENCOUNTER 2024-04-11 10:45 | Outpatient (CLI) | payer MEDICARE, OTHER ==
--- NOTE | 2024-04-11 12:04 | Sleep Patient Instructions ---
Sleep Center Visit Summary - Patient Visit Information Reason for Visit: Annual follow-up - Patient Instructions Additional Instructions: You will continue with CPAP therapy with pressure set at 7 cmH2O. A supply prescription will be updated with your DME supplier. Please follow up with the sleep care office in 1 year. - Clinic Information Contact: [facility] [address] [place] [address] [email or web address] T: [phone]
--- NOTE | 2024-04-11 12:07 | SLEEP CARE CONSULTATION ---
Information from patient questionnaire entered by Charlie Isaacs. I have reviewed and concur with the information entered by Charlie Isaacs. This document represents the service I personally performed and the decisions made by , Janelle Membreno ARNP. History of Present Illness Service Date and Time: 04/11/2024 1045 Previous diagnosis: Severe, Obstructive Sleep Apnea-Hypopnea Syndrome AHI: 38 (in 2014) Reason for follow up: annual (Last seen 03/2023) Equipment type: CPAP (CATES Dreamstation 2) Equipment obtained from: [facility] (getting supplies as needed) Mask style: Nasal Backup mask available: Yes Last cushion change: 11 days ago [facility] Type of [facility]: Polysomnography HPI additional information: VIVI JUNIOR was diagnosed to have severe, AHI 38, obstructive sleep apnea- hypopnea syndrome and returned today for CPAP therapy annual follow-up. Sleep Study - Results Type of Sleep Study: Polysomnography Prior sleep studies: Yes [facility] CPAP Compliance Data - Data Reviewed with Patient Average duration of nightly device use: 9 h 14 mins Compliance rate %: 100 (180/180 days used) Current pressure setting (cmH2O): 7 Humidity setting: Off Heated hose settin Average residual AHI: 2.4 Central apnea: 0.1 Obstructive apnea: 0.2 Hypopnea: 2.1 Average large leak: 6 mins 30 sec Subjective Patient concerns: denies: aerophagia, mask discomfort, air blowing in eyes, mask leak noise, condensation in mask/hose, nasal congestion, dry mouth, nose, throat, epistaxis Observed to snore while using device: No Current pressure setting perceived as: comfortable On therapy, patient: reports: sleeping better, awakening more refreshed, being more awake and alert during the day, more rested overall. denies: drowsiness while driving Initial [place] Sleepiness Scale score: 10 (in 2014) Current [place] Sleepiness Scale score: 7 (04/11/24) Allergies and Home Medications Known drug allergies: Yes (as listed) Drug allergies reviewed: Yes Home medication list reviewed: Yes (no changes) Allergy and home medication list: Allergies diltiazem HCl * [From Cardizem] Allergy (Verified 04/07/23 10:51) Unknown Sulfa (Sulfonamide Antibiotics) Allergy (Verified 04/07/23 10:51) Anaphylaxis Review of Systems Review of systems same as previous: Yes (no changes) Physical Exam Vital signs obtained and entered by: Janelle Bolaños NP Blood Pressure: 124/68 Cuff size: long (left arm) Heart Rate: 67 O2 Saturation: 93 Height: 5 ft 11 in Weight: 234 lb 6.4 oz Weight change since last visit: 18 lb loss Body Mass Index: 32.6 BMI Classification: Obese Impression and Plan 1. Obstructive Sleep Apnea-Hypopnea Syndrome, severe, with good treatment compliance and good apnea control. On CPAP therapy, the patient has better sleep quality and is more rested overall. Patient has significant improvement of their sleep apnea and is satisfied with current CPAP therapy. Patient denies problems with oral dryness, nasal congestion, epistaxis, skin irritation or aerophagia. Patient's apnea severity and rationale for treatment to reduce apnea, improve sleep quality and reduce cardiovascular and cerebrovascular events was reviewed. I also reviewed the benefit of consistent device use of CPAP for hypertension, arrhythmia, diabetes, gastric reflux. 2. Obesity, unspecified. Currently patients BMI is 32.6. Obesity increases the risk of apnea, CPAP pressure requirements and overall health risks especially cardiovascular and diabetes. Thus patient is advised to continue to try to lose weight. * Continue CPAP pressure at 7 cmH2O * Update supply prescription. * Notify me if snoring with mask or feeling that the pressure is too much or too little * Attempt to lose weight * Call this office if any problems using CPAP * Return for follow up in 12 months, or sooner if concerns arise Counseling Topics: Spare mask, Weight loss health impact Prescriptions: Device supplies Follow up with Sleep Care in: 1 year Visit Type: In Office Time Spent with Patient (minutes): 20 Provider Statement: I spent 100% of the Face to Face Visit with the patient with greater than 50% spent counseling the patient and coordination of care.
[2024-04-11 12:15] VITALS: BP 124/68; O2SAT 93
== END 2024-04-11 10:46 | disposition home or self-care (01) ==
LOC: SC 10:45
PROVIDERS: ATTEND Nurse Practitioner Family
DX: G47.33 Obstructive sleep apnea (adult) (pediatric) (principal); E66.9 Obesity, unspecified; Z68.32 Body mass index [BMI] 32.0-32.9, adult
CPT/HCPCS: 99213; G0463; 99212